=== PATIENT | male | born 1940 | race Caucasian/White ===

== ENCOUNTER 2017-05-15 20:10 | Emergency (ER) | payer MEDICARE, MEDICAID ==
[2017-05-15 20:35] VITALS: BP 185/94
--- NOTE | 2017-05-15 21:50 | EDM.PDOC ---
ED HPI GENERAL MEDICAL PROBLEM - General Chief Complaint: Neurological Problem Stated Complaint: TIA Time Seen by Provider: 05/15/17 20:40 Source of Information: Reports: Patient, Family History Limitations: Reports: No Limitations - History of Present Illness INITIAL COMMENTS - FREE TEXT/NARRATIVE: 76-year-old male who had a brief period of 1-2 minutes of expressive aphasia presents for evaluation. It happened while he was eating, he felt a fullness or pressure in his abdomen, didn't feel well and then was trying to relay his symptoms to his but "couldn't speak right". He had no headache, visual complaints, muscle weakness, extremity symptoms or shortness of breath. His felt he probably should have his blood pressure checked so they checked it and it was higher than usual. By that time his symptoms had resolved, only lasted 1-2 minutes but she figured they should bring him in to be checked. He has had no previous symptoms similar to what he experienced tonight, he has known peripheral vascular disease and has stents in the lower extremities. [facility], I'm not sure the reasoning. Onset: Sudden Severity: Mild Associated Symptoms: Reports: Other (Some abdominal fullness and nausea) - Related Data Allergies Allergy/AdvReac Type Severity Reaction Status Date / Time No Known Allergies Allergy Verified 05/15/17 20:39 Home Meds: Home Meds Acetaminophen [Tylenol] 325 mg PO Q6HR PRN 05/15/17 [History] Aclidinium [place] [Tudorza Pressair] 400 mcg INH BID 05/15/17 [History] Albuterol Sulfate [Proair Respiclick] 90 mcg IH ASDIRECTED PRN 05/15/17 [History ] Albuterol/Ipratropium [DuoNeb 3.0-0.5 MG/3 ML] 3 ml IH QID 05/15/17 [History] Aspirin [[place] Aspirin] 81 mg PO BEDTIME 05/15/17 [History] Budesonide/Formoterol [Symbicort 160-4.5 MCG] 1 puff INH BID 05/15/17 [History] Carvedilol 6.25 mg PO BID 05/15/17 [History] Cholestyramine/Sucrose [Cholestyramine Packet] 4 gm PO TID 05/15/17 [History] Fenofibrate Nanocrystallized [Fenofibrate] 48 mg PO DAILY 05/15/17 [History] Hyoscyamine [Levsin] 0.125 mg PO Q4HR PRN 05/15/17 [History] Lidocaine 2% [Xylocaine 2% Jelly] 5 ml PO ASDIRECTED PRN 05/15/17 [History] Losartan/Hydrochlorothiazide [Losartan-HCTZ 100-12.5 MG] 1 each PO DAILY [History] Metoclopramide HCl [Reglan] 10 mg PO BID 05/15/17 [History] Pantoprazole [ProTONIX] 40 mg PO DAILY 05/15/17 [History] Ranitidine [Zantac] 300 mg PO BEDTIME 05/15/17 [History] Simethicone 80 mg PO ASDIRECTED 05/15/17 [History] Sucralfate 1 gm PO QID 05/15/17 [History] atorvaSTATin [Lipitor] 10 mg PO BEDTIME 05/15/17 [History] Past Medical History Cardiovascular History: Reports: Afib, Bypass, CAD, Hypertension, PR, SOB on Exertion, Stents Respiratory History: Reports: COPD Gastrointestinal History: Reports: Cholelithiasis, GERD Musculoskeletal History: Reports: Arthritis Oncologic (Cancer) History: Reports: Prostate - Infectious Disease History Infectious Disease History: Reports: C-Difficile, Measles, Mumps, Shingles - Past Surgical History Cardiovascular Surgical History: Reports: Coronary Artery Bypass, Coronary Artery Stent, Percutaneous Transluminal Angioplasty, Other (See Below) Other Cardiovascular Surgeries/Procedures: stents in both legs GI Surgical History: Reports: Appendectomy, Cholecystectomy, Hernia Repair/Other Male Surgical History: Reports: Prostatectomy Musculoskeletal Surgical History: Reports: Knee Replacement Social & Family History - Tobacco Use Smoking Status *Q: Former Smoker Used Tobacco, but Quit: Yes Month Tobacco Last Used: 1 month ago - Caffeine Use Caffeine Use: Reports: Coffee - Recreational Drug Use Recreational Drug Use: No ED ROS GENERAL - Review of Systems Review Of Systems: See Below Constitutional: Denies: Fever, Chills HEENT: Reports: Other (Brief expressive aphasia) Respiratory: Denies: Shortness of Breath Cardiovascular: Denies: Chest Pain, Palpitations GI/Abdominal: Reports: Abdominal Pain, Nausea. Denies: Vomiting Skin: Reports: No Symptoms Neurological: Denies: Dizziness, Headache Psychiatric: Reports: No Symptoms ED EXAM, NEURO - Physical Exam Exam: See Below Exam Limited By: No Limitations General Appearance: Alert, No Apparent Distress Eye Exam: Bilateral Eye: EOMI, Other (Full visual chamberlain) Neck: No: Carotid Bruit Respiratory/Chest: No Respiratory Distress, Lungs Clear Cardiovascular: Regular Rate, Rhythm Neurological: Alert, Normal Mood/Affect, No Motor/Sensory Deficits, Oriented x 3 , Other (Romberg is negative, no pronator drift) Psychiatric: Normal Affect, Normal Mood Skin Exam: Warm, Dry Course - Vital Signs Last Recorded V/S: Last Vital Signs Temp 98.0 F 05/15/17 20:38 Pulse 81 05/15/17 20:38 Resp 18 05/15/17 20:38 BP 185/94 H 05/15/17 20:38 Pulse Ox 96 05/15/17 20:38 - Re-Assessments/Exams Free Text/Narrative Re-Assessment/Exam: 05/16/17 02:21 His blood pressure continued to be somewhat elevated with a systolic running 170 -185 which is higher than normal for him. He admits he thinks he may have missed his medicines this morning so he was given a dose of his regular hypertensive medication. He will recheck tomorrow if not improving with his blood pressure or will return sooner if symptoms recur. Departure - Departure Time of Disposition: 22:12 Disposition: Home, Self-Care 01 Condition: Good Clinical Impression: Expressive aphasia Hypertension Qualifiers: Hypertension type: essential hypertension Qualified Code(s): I10 - Essential ( primary) hypertension - Discharge Information Instructions: Transient Ischemic Attack, [id number] Referrals: PCP,None [Primary Care Provider] - Forms: ED Department Discharge Care Plan Goals: Continue your current medications, recheck with your primary care as scheduled and return any time if symptoms recur or you have other concerns.
== END 2017-05-15 22:14 | disposition home or self-care (01) ==
LOC: JP.ED 20:10
DX: R47.01 Aphasia (principal); I10 Essential (primary) hypertension; I48.91 Unspecified atrial fibrillation; I25.10 Atherosclerotic heart disease of native coronary artery without angina pectoris; I25.2 Old myocardial infarction; M19.90 Unspecified osteoarthritis, unspecified site; K21.9 Gastro-esophageal reflux disease without esophagitis; J44.9 Chronic obstructive pulmonary disease, unspecified; Z95.5 Presence of coronary angioplasty implant and graft; Z95.1 Presence of aortocoronary bypass graft; Z79.899 Other long term (current) drug therapy; Z90.49 Acquired absence of other specified parts of digestive tract; Z98.890 Other specified postprocedural states; Z96.659 Presence of unspecified artificial knee joint; Z87.891 Personal history of nicotine dependence; Z79.82 Long term (current) use of aspirin
CPT/HCPCS: 99284; 99285

== ENCOUNTER 2017-07-25 14:11 | Inpatient (IN) | payer MEDICARE, MEDICAID ==
--- NOTE | 2017-07-25 15:13 | EDM.PDOC ---
ED HPI GENERAL MEDICAL PROBLEM - General Chief Complaint: Respiratory Problem Stated Complaint: CHEST DISCOMFORT/PNEUMONIA? Time Seen by Provider: 07/25/17 14:54 Source of Information: Reports: Patient, Family, RN Notes Reviewed History Limitations: Reports: No Limitations - History of Present Illness INITIAL COMMENTS - FREE TEXT/NARRATIVE: 76-year-old gentleman presents emergency department day complaint of epigastric/ chest pain, he has a fairly complicated history was recently hospitalized for 21 days about a month ago at which time diagnosis of pneumonia completed a course of levofloxacin as well as undergoing ERCP with stent placement in the pancreas and lesion biopsy of the pancreas which by report patient has been benign, records are pending. At the time of hospital discharge he states he was not feeling the best and while at home he has continued to have ongoing abdominal pain predominately epigastric left upper quadrant area denies any sputum production cough he does have a known history of COPD of which she is generally short of breath he feels this is not changed significantly he does not have diaphoresis or chest pressure Chest Pain Score (Numeric/FACES): 6 - Related Data Allergies Allergy/AdvReac Type Severity Reaction Status Date / Time No Known Allergies Allergy Verified 07/25/17 17:50 Home Meds: Home Meds Acetaminophen [Tylenol] 325 mg PO Q6HR PRN 05/15/17 [History] Aclidinium [place] [Tudorza Pressair] 400 mcg INH BID 05/15/17 [History] Albuterol Sulfate [Proair Respiclick] 90 mcg IH ASDIRECTED PRN 05/15/17 [History ] Albuterol/Ipratropium [DuoNeb 3.0-0.5 MG/3 ML] 3 ml IH QID 05/15/17 [History] Aspirin [[place] Aspirin] 81 mg PO BEDTIME 05/15/17 [History] Budesonide/Formoterol [Symbicort 160-4.5 MCG] 1 puff INH BID 05/15/17 [History] Carvedilol 6.25 mg PO BID 05/15/17 [History] Cholestyramine/Sucrose [Cholestyramine Packet] 4 gm PO TID 05/15/17 [History] Fenofibrate Nanocrystallized [Fenofibrate] 48 mg PO DAILY 05/15/17 [History] Hyoscyamine [Levsin] 0.125 mg PO Q4HR PRN 05/15/17 [History] Lidocaine 2% [Xylocaine 2% Jelly] 5 ml PO ASDIRECTED PRN 05/15/17 [History] Losartan/Hydrochlorothiazide [Losartan-HCTZ 100-12.5 MG] 1 each PO DAILY [History] Metoclopramide HCl [Reglan] 10 mg PO BID 05/15/17 [History] Pantoprazole [ProTONIX] 40 mg PO DAILY 05/15/17 [History] Ranitidine [Zantac] 300 mg PO BEDTIME 05/15/17 [History] Simethicone 80 mg PO ASDIRECTED 05/15/17 [History] Sucralfate 1 gm PO QID 05/15/17 [History] atorvaSTATin [Lipitor] 10 mg PO BEDTIME 05/15/17 [History] Past Medical History Cardiovascular History: Reports: Afib, Bypass, CAD, Hypertension, [place], SOB on Exertion, Stents Respiratory History: Reports: COPD Gastrointestinal History: Reports: Cholelithiasis, GERD Musculoskeletal History: Reports: Arthritis Oncologic (Cancer) History: Reports: Prostate - Infectious Disease History Infectious Disease History: Reports: C-Difficile, Measles, Mumps, Shingles - Past Surgical History Cardiovascular Surgical History: Reports: Coronary Artery Bypass, Coronary Artery Stent, Percutaneous Transluminal Angioplasty, Other (See Below) Other Cardiovascular Surgeries/Procedures: stents in both legs GI Surgical History: Reports: Appendectomy, Cholecystectomy, Hernia Repair/Other Male Surgical History: Reports: Prostatectomy Musculoskeletal Surgical History: Reports: Knee Replacement Social & Family History - Tobacco Use Smoking Status *Q: Former Smoker Used Tobacco, but Quit: Yes Month Tobacco Last Used: 0 - Caffeine Use Caffeine Use: Reports: Coffee - Recreational Drug Use Recreational Drug Use: No ED ROS GENERAL - Review of Systems Review Of Systems: See Below Constitutional: Reports: Other (Food does not taste good). Denies: Fever, Chills HEENT: Reports: No Symptoms Respiratory: Reports: Shortness of Breath Cardiovascular: Reports: Dyspnea on Exertion GI/Abdominal: Reports: Abdominal Pain, Nausea. Denies: Vomiting : Reports: No Symptoms Musculoskeletal: Reports: No Symptoms Skin: Reports: No Symptoms Neurological: Reports: No Symptoms ED EXAM, GENERAL - Physical Exam Exam: See Below Free Text/Narrative:: General: Male, not in any distress, alert and oriented x3 HEENT: head is atraumatic normocephalic, eyes pupils equal round reactive to light, sclera mild icterus appreciated no conjunctivitis appreciated. Ears blocked by cerumen bilaterally canals are clear. Nose no septal deviation, nares are clear , no blood present. Mouth mucosa is moist and pink no erythema or exudate noted in soft palate, tongue is midline uvula is midline, dentition is intact. Neck: Supple no thyromegaly no tracheal deviation. Nodes: Cervical nodes subclavicular nodes nontender no palpable lymphadenopathy noted. Lungs: Distant breath sounds on appreciate any adventitious noises. CV: Regular rate and rhythm S1 and S2 appreciated no murmurs rubs or gallops noted. Abdomen: Soft, nontender, no palpable masses or organomegaly appreciated, no distention no guarding bowel sounds are present, . Neuro: Cranial nerves II through XII grossly intact Skin: Warm and dry, intact Extremities: No lower extremity edema appreciated, . Course - Vital Signs Last Recorded V/S: Last Vital Signs Temp 98.4 F 07/25/17 14:23 Pulse 82 07/25/17 18:19 Resp 18 07/25/17 16:42 BP 143/79 H 07/25/17 18:19 Pulse Ox 93 L 07/25/17 18:19 - Orders/Labs/Meds Orders: Active Orders 24 hr Category Date Time Status EKG Documentation Completion [RC] ASDIRECTED Care 07/25/17 15:08 Active Peripheral IV Care [RC] . DIRECTED Care 07/25/17 17:37 Active Chest 2V [CR] Urgent Exams 07/25/17 15:07 Taken Chest w Cont [CT] Stat Exams 07/25/17 17:35 Taken Heparin Sodium/D5W [Heparin 25,000 Units in D5W 500 ML] Med 07/25/17 18:45 Ordered 25,000 units in 500 ml IV TITRATE Sodium Chloride 0.9% [Normal Saline] 1,000 ml Med 07/25/17 17:45 Active IV ASDIRECTED Sodium Chloride 0.9% [Saline Flush] Med 07/25/17 17:36 Active 10 ml FLUSH ASDIRECTED PRN Peripheral IV Insertion Adult [OM.PC] Urgent Oth 07/25/17 17:36 Ordered EKG 12 Lead [EK] Stat Ther 10/02/17 15:08 Ordered Medication Orders Sodium Chloride (Normal Saline) 1,000 mls @ 500 mls/hr IV ASDIRECTED KARLA Last Admin: 07/25/17 18:17 Dose: 500 mls/hr Heparin Sodium/Dextrose (Heparin 25,000 Units In D5w 500 Ml) 25,000 units in 500 mls @ 0 mls/hr IV TITRATE KARLA; 18 UNITS/KG/HR PRN Reason: Protocol Sodium Chloride (Saline Flush) 10 ml FLUSH ASDIRECTED PRN PRN Reason: Keep Vein Open Last Admin: 07/25/17 18:18 Dose: 10 ml Labs: Laboratory Tests 07/25/17 07/25/17 07/25/17 Range/Units 15:25 15:25 15:25 WBC 14.3 H (4.5-11.0) K/uL RBC 4.33 (4.30-5.90) M/uL Hgb 11.3 L (12.0-15.0) g/dL Hct 35.2 L (40.0-54.0) % MCV 81 (80-98) fL MCH 26 L (27-31) pg MCHC 32 (32-36) % Plt Count 397 (150-400) K/uL Neut % (Auto) 72 H (36-66) % Lymph % (Auto) 15 L (24-44) % [place] % (Auto) 11 H (2-6) % Eos % (Auto) 3 (2-4) % Baso % (Auto) 0 (0-1) % Sodium 140 (140-148) mmol/L Potassium 3.8 (3.6-5.2) mmol/L Chloride 100 (100-108) mmol/L Carbon Dioxide 32 (21-32) mmol/L Anion Gap 8.4 (5.0-14.0) mmol/L BUN 25 H (7-18) mg/dL Creatinine 1.1 (0.8-1.3) mg/dL Est Cr Clr Drug Dosing 53.33 mL/min Estimated GFR (MDRD) > 60 (>60) Glucose 100 (74-106) mg/dL Lactic Acid 1.4 (0.4-2.0) mmol/L Calcium 8.3 L (8.5-10.1) mg/dL Total Bilirubin 0.5 (0.2-1.0) mg/dL AST 14 L (15-37) U/L ALT 10 L (12-78) U/L Alkaline Phosphatase 71 (46-116) U/L Troponin I 0.020 (0.000-0.056) ng/mL Total Protein 6.2 L (6.4-8.2) g/dL Albumin 2.5 L (3.4-5.0) g/dL Globulin 3.7 H (2.3-3.5) g/dL Albumin/Globulin Ratio 0.7 L (1.2-2.2) Lipase 470 H (73-393) U/L Urine Color Urine Appearance Urine pH (4.5-8.0) Ur Specific [place] (1.008-1.030) Urine Protein (NEGATIVE) mg/dL Urine Glucose (UA) (NEGATIVE) mg/dL Urine Ketones (NEGATIVE) mg/dL Urine Occult Blood (NEGATIVE) Urine Nitrite (NEGAITVE) Urine Bilirubin (NEGATIVE) Urine Urobilinogen (NORMAL) mg/dL Ur Leukocyte Esterase (NEGATIVE) Urine RBC (0-5) Urine WBC (0-5) Ur Epithelial Cells Amorphous Sediment Urine Bacteria Urine Mucus Urine Other 07/25/17 Range/Units 15:47 WBC (4.5-11.0) K/uL RBC (4.30-5.90) M/uL Hgb (12.0-15.0) g/dL Hct (40.0-54.0) % MCV (80-98) fL MCH (27-31) pg MCHC (32-36) % Plt Count (150-400) K/uL Neut % (Auto) (36-66) % Lymph % (Auto) (24-44) % [place] % (Auto) (2-6) % Eos % (Auto) (2-4) % Baso % (Auto) (0-1) % Sodium (140-148) mmol/L Potassium (3.6-5.2) mmol/L Chloride (100-108) mmol/L Carbon Dioxide (21-32) mmol/L Anion Gap (5.0-14.0) mmol/L BUN (7-18) mg/dL Creatinine (0.8-1.3) mg/dL Est Cr Clr Drug Dosing mL/min Estimated GFR (MDRD) (>60) Glucose (74-106) mg/dL Lactic Acid (0.4-2.0) mmol/L Calcium (8.5-10.1) mg/dL Total Bilirubin (0.2-1.0) mg/dL AST (15-37) U/L ALT (12-78) U/L Alkaline Phosphatase (46-116) U/L Troponin I (0.000-0.056) ng/mL Total Protein (6.4-8.2) g/dL Albumin (3.4-5.0) g/dL Globulin (2.3-3.5) g/dL Albumin/Globulin Ratio (1.2-2.2) Lipase (73-393) U/L Urine Color Yellow Urine Appearance Cloudy Urine pH 6.0 (4.5-8.0) Ur Specific [place] 1.015 (1.008-1.030) Urine Protein Trace (NEGATIVE) mg/dL Urine Glucose (UA) Normal (NEGATIVE) mg/dL Urine Ketones 15 H (NEGATIVE) mg/dL Urine Occult Blood Moderate (NEGATIVE) Urine Nitrite Negative (NEGAITVE) Urine Bilirubin Small (NEGATIVE) Urine Urobilinogen Normal (NORMAL) mg/dL Ur Leukocyte Esterase Small (NEGATIVE) Urine RBC 5-10 H (0-5) Urine WBC 5-10 H (0-5) Ur Epithelial Cells Moderate Amorphous Sediment Few Urine Bacteria Few Urine Mucus Many Urine Other See note Meds: Medications Generic Name Dose Route Start Last Admin Trade Name Freq PRN Reason Stop Dose Admin Sodium Chloride 1,000 mls @ 500 mls/hr 07/25/17 17:45 07/25/17 18:17 Normal Saline IV 500 mls/hr ASDIRECTED KARLA Administration Heparin Sodium/Dextrose 25,000 units in 500 mls @ 0 mls/hr 07/25/17 18:45 Heparin 25,000 Units In D5w 500 Ml IV TITRATE KARLA Protocol 18 UNITS/KG/HR Sodium Chloride 10 ml 07/25/17 17:36 07/25/17 18:18 Saline Flush FLUSH 10 ml ASDIRECTED PRN Administration Keep Vein Open Discontinued Medications Generic Name Dose Route Start Last Admin Trade Name Freq PRN Reason Stop Dose Admin Heparin Sodium (Porcine) 4,000 units 07/25/17 18:34 Heparin Sodium IVPUSH 07/25/17 18:35 ONETIME ONE Sodium Chloride 75 mls @ 3 mls/sec 07/25/17 17:44 07/25/17 18:09 Normal Saline IV 07/25/17 17:45 3 mls/sec ONETIME ONE Administration Iopamidol 100 ml 07/25/17 17:44 07/25/17 18:09 Isovue-300 (61%) IV 100 ml . DIRECTED PRN Administration RADIOLOGY EXAM Oxycodone/Acetaminophen 1 tab 07/25/17 15:45 07/25/17 16:18 Percocet 325-5 Mg PO 07/25/17 15:46 1 tab ONETIME ONE Administration Departure - Departure Time of Disposition: 18:41 Disposition: Admitted As Inpatient 68 Condition: Fair Clinical Impression: Pulmonary embolism and infarction - Discharge Information Referrals: PCP,None [Primary Care Provider] - Forms: ED Department Discharge - My Orders Last 24 Hours: My Active Orders 07/25/17 15:07 Chest 2V [CR] Urgent 07/25/17 15:08 EKG Documentation Completion [RC] ASDIRECTED EKG 12 Lead [EK] Stat 07/25/17 17:35 Chest w Cont [CT] Stat 07/25/17 17:36 Sodium Chloride 0.9% [Saline Flush] 10 ml FLUSH ASDIRECTED PRN Peripheral IV Insertion Adult [OM.PC] Urgent 07/25/17 17:37 Peripheral IV Care [RC] . DIRECTED 07/25/17 17:45 Sodium Chloride 0.9% [Normal Saline] 1,000 ml IV ASDIRECTED 07/25/17 18:45 Heparin Sodium/D5W [Heparin 25,000 Units in D5W 500 ML] 25,000 units in 500 ml IV TITRATE - Assessment/Plan Last 24 Hours: My Active Orders 07/25/17 15:07 Chest 2V [CR] Urgent 07/25/17 15:08 EKG Documentation Completion [RC] ASDIRECTED EKG 12 Lead [EK] Stat 07/25/17 17:35 Chest w Cont [CT] Stat 07/25/17 17:36 Sodium Chloride 0.9% [Saline Flush] 10 ml FLUSH ASDIRECTED PRN Peripheral IV Insertion Adult [OM.PC] Urgent 07/25/17 17:37 Peripheral IV Care [RC] . DIRECTED 07/25/17 17:45 Sodium Chloride 0.9% [Normal Saline] 1,000 ml IV ASDIRECTED 07/25/17 18:45 Heparin Sodium/D5W [Heparin 25,000 Units in D5W 500 ML] 25,000 units in 500 ml IV TITRATE Plan: Assessment Acuity = acute Site and laterality = pulmonary embolism left lower lobe complicated patient with known history of chronic obstructive pulmonary disease, coronary artery disease, hypertension and dyslipidemia Etiology = unclear etiology Manifestations = left upper quadrant pain Location of injury = Home Lab values = WBC elevated at 14.3 consistent with leukocytosis, hemoglobin low 11.3 consistent normochromic anemia troponin was negative albumin low at 2.5 consistent hypoalbuminemia lipase slightly elevated at 470 urinalysis reveals RBC of 5-10 consistent hematuria a WBC [address] scan of the head shows acute pulmonary embolism with infarction left lower lobe Plan Discussed case with hospitalist vice president media relations he agreed to come and evaluate the patient ED for admission, 4000 unit bolus heparin initiated in combination with heparin drip Patient was in agreement with the plan all questions were answered, This note was dictated using [employer] voice recognition software please call with any questions.
[2017-07-25] MEDS ORDERED: Acetaminophen/oxyCODONE 325-5 MG Tab PO ONE (15:45)
[2017-07-25] MEDS ORDERED: Sodium Chloride 0.9% 10 ML Syringe FLUSH PRN ×2 (17:36→19:49)
[2017-07-25] MEDS ORDERED: Iopamidol 612 MG/ML 100 ML Bottle IV PRN (17:44)
[2017-07-25] MEDS ORDERED: Sodium Chloride 0.9% 75 ML IV ONE (17:44)
[2017-07-25] MEDS ORDERED: Sodium Chloride 0.9% 1,000 ML IV SCH (17:45)
[2017-07-25] MEDS ORDERED: Heparin Sodium 5,000 Units/ML Vial IVPUSH ONE (18:34)
[2017-07-25] MEDS: Heparin Sodium/D5W 25,000 UNITS/500 ML BAG IV SCH (19:05)
--- NOTE | 2017-07-25 19:25 | PCM.HP ---
H&P History of Present Illness - General Date of Service: 07/25/17 Admit Problem/Dx: Admission Diagnosis/Problem Admission Diagnosis/Problem Pulmonary embolism Source of Information: Patient, Old Records, Provider, RN Notes Reviewed History Limitations: Reports: No Limitations - History of Present Illness Initial Comments - Free Text/Narative: Mr. Mukherjee is a 76-year-old gentleman who is admitted through the emergency department for further management of a left lung pulmonary embolism and pulmonary infarct. Over the past 6 weeks he is had a fairly complicated medical history, including 2 hospitalizations at [facility] in [place]. He was noted to have a possible pancreatic mass, CT scans and MRI of the abdomen were obtained. He underwent ERCP with stent placement and a biopsy which was negative for malignancy. He was found to have evidence of pancreatitis and his hospitalization was further complicated by pneumonia. He was discharged home just over a week ago and was feeling somewhat stronger with improved appetite up until 2 days ago. Since then has noted pain in his left anterior chest wall and left upper abdomen. Pain would get some what worse with a deep breath and he has noted mild increase in shortness of breath. He's had no fevers chills or sweats, cough has been productive only of clear sputum. On evaluation today in the emergency department chest x-ray showed no obvious infiltrate, white blood cell count was modestly elevated. CT scan of the chest documents a left lower lobe infiltrate and associated pulmonary infarct. CT of the upper abdomen shows no appreciable change from previous CT scans. Patient denies any previous history of clotting abnormalities, DVT, or pulmonary embolism. There is been no significant family history of clotting abnormalities. Chest Pain Score (Numeric/FACES): 6 - Related Data Allergies/Adverse Reactions: Allergies Allergy/AdvReac Type Severity Reaction Status Date / Time No Known Allergies Allergy Verified 07/25/17 17:50 Home Medications: Home Meds Acetaminophen [Tylenol] 325 mg PO Q6HR PRN 05/15/17 [History] Aclidinium [place] [Tudorza Pressair] 400 mcg INH BID 05/15/17 [History] Albuterol Sulfate [Proair Respiclick] 90 mcg IH ASDIRECTED PRN 05/15/17 [History ] Albuterol/Ipratropium [DuoNeb 3.0-0.5 MG/3 ML] 3 ml IH QID 05/15/17 [History] Aspirin [Casey Aspirin] 81 mg PO BEDTIME 05/15/17 [History] Budesonide/Formoterol [Symbicort 160-4.5 MCG] 2 puff INH BID 05/15/17 [History] Carvedilol 6.25 mg PO BID 05/15/17 [History] Cholestyramine/Sucrose [Cholestyramine Packet] 4 gm PO TID 05/15/17 [History] Fenofibrate Nanocrystallized [Fenofibrate] 48 mg PO DAILY 05/15/17 [History] Pantoprazole [ProTONIX] 40 mg PO DAILY 05/15/17 [History] Ranitidine [Zantac] 150 mg PO BEDTIME 05/15/17 [History] Simethicone 80 mg PO ASDIRECTED 05/15/17 [History] Sucralfate 1 gm PO QID 05/15/17 [History] atorvaSTATin [Lipitor] 10 mg PO BEDTIME 05/15/17 [History] Losartan/Hydrochlorothiazide [Losartan-HCTZ 100-25 MG] 1 tab PO DAILY 07/25/17 [ History] hydrOXYzine HCl [hydrOXYzine] 25 mg PO TID PRN 07/25/17 [History] oxyCODONE 1 tab PO Q6H PRN 07/25/17 [History] Past Medical History Cardiovascular History: Reports: Afib, Bypass, CAD, Hypertension, [place], SOB on Exertion, Stents Respiratory History: Reports: COPD Gastrointestinal History: Reports: Cholelithiasis, GERD Musculoskeletal History: Reports: Arthritis Oncologic (Cancer) History: Reports: Prostate - Infectious Disease History Infectious Disease History: Reports: C-Difficile, Measles, Mumps, Shingles - Past Surgical History Cardiovascular Surgical History: Reports: Coronary Artery Bypass, Coronary Artery Stent, Percutaneous Transluminal Angioplasty, Other (See Below) Other Cardiovascular Surgeries/Procedures: stents in both legs GI Surgical History: Reports: Appendectomy, Cholecystectomy, Hernia Repair/Other Male Surgical History: Reports: Prostatectomy Musculoskeletal Surgical History: Reports: Knee Replacement Social & Family History - Tobacco Use Smoking Status *Q: Former Smoker Used Tobacco, but Quit: Yes Month Tobacco Last Used: 0 - Caffeine Use Caffeine Use: Reports: Coffee - Recreational Drug Use Recreational Drug Use: No H&P Review of Systems - Review of Systems: Review Of Systems: See Below General: Reports: Weakness, Decreased Appetite. Denies: Fever, Chills, Diaphoresis HEENT: Reports: No Symptoms Pulmonary: Reports: Shortness of Breath, Cough. Denies: Wheezing, Pleuritic Chest Pain, Sputum, Hemoptysis Cardiovascular: Reports: Dyspnea on Exertion. Denies: Chest Pain, Palpitations , Orthopnea, PND, Edema, Lightheadedness Gastrointestinal: Reports: Abdominal Pain, Decreased Appetite. Denies: Black Stool, Bloody Stool, Constipation, Diarrhea, Difficulty Swallowing, Distension Genitourinary: Reports: No Symptoms Musculoskeletal: Reports: No Symptoms Skin: Reports: No Symptoms Psychiatric: Reports: No Symptoms Neurological: Reports: No Symptoms Hematologic/Lymphatic: Reports: No Symptoms Immunologic: Reports: No Symptoms Exam - Exam Exam: See Below - Vital Signs Vital Signs: Last Vital Signs Temp 98.4 F 07/25/17 14:23 Pulse 80 07/25/17 19:13 Resp 18 07/25/17 16:42 BP 139/64 07/25/17 19:13 Pulse Ox 93 L 07/25/17 19:13 Weight: 141 lb 1.533 oz - Exam Quality Assessment: DVT Prophylaxis General: Alert, Oriented, Cooperative, Mild Distress HEENT: Conjunctiva Clear, Hearing Intact, Mucosa Moist & [place], Normal Nasal Septum, Posterior Pharynx Clear, Pupils Equal Neck: Supple, Trachea Midline, +2 Carotid Pulse wo Bruit Lungs: Normal Respiratory Effort, Decreased Breath Sounds. No: Crackles, Rales , Rhonchi, Rub, Stridor, Wheezing Cardiovascular: Regular Rate, Normal S1, Normal S2, Irregular Rhythm. No: Bradycardia, Tachycardia, Systolic Murmur, Diastolic Murmur GI/Abdominal Exam: Normal Bowel Sounds, Soft, Non-Tender, No Organomegaly, No Distention Back Exam: Normal Inspection, Full Range of Motion Extremities: Normal Inspection, Non-Tender, No Pedal Edema Skin: Warm, Dry, Intact Neurological: Cranial Nerves Intact, Strength Equal Bilateral, Normal Speech, Normal Tone. No: Focal Deficit Neuro Extensive - Mental Status: Alert, Oriented x3, Normal Mood/Affect, Normal Cognition, Memory Intact - Patient Data Lab Results Last 24 hrs: Laboratory Results - last 24 hr 07/25/17 07/25/17 07/25/17 Range/Units 15:25 15:25 15:25 WBC 14.3 H (4.5-11.0) K/uL RBC 4.33 (4.30-5.90) M/uL Hgb 11.3 L (12.0-15.0) g/dL Hct 35.2 L (40.0-54.0) % MCV 81 (80-98) fL MCH 26 L (27-31) pg MCHC 32 (32-36) % Plt Count 397 (150-400) K/uL Neut % (Auto) 72 H (36-66) % Lymph % (Auto) 15 L (24-44) % [place] % (Auto) 11 H (2-6) % Eos % (Auto) 3 (2-4) % Baso % (Auto) 0 (0-1) % Sodium 140 (140-148) mmol/L Potassium 3.8 (3.6-5.2) mmol/L Chloride 100 (100-108) mmol/L Carbon Dioxide 32 (21-32) mmol/L Anion Gap 8.4 (5.0-14.0) mmol/L BUN 25 H (7-18) mg/dL Creatinine 1.1 (0.8-1.3) mg/dL Est Cr Clr Drug Dosing 53.33 mL/min Estimated GFR (MDRD) > 60 (>60) Glucose 100 (74-106) mg/dL Lactic Acid 1.4 (0.4-2.0) mmol/L Calcium 8.3 L (8.5-10.1) mg/dL Total Bilirubin 0.5 (0.2-1.0) mg/dL AST 14 L (15-37) U/L ALT 10 L (12-78) U/L Alkaline Phosphatase 71 (46-116) U/L Troponin I 0.020 (0.000-0.056) ng/mL Total Protein 6.2 L (6.4-8.2) g/dL Albumin 2.5 L (3.4-5.0) g/dL Globulin 3.7 H (2.3-3.5) g/dL Albumin/Globulin Ratio 0.7 L (1.2-2.2) Lipase 470 H (73-393) U/L Urine Color Urine Appearance Urine pH (4.5-8.0) Ur Specific [place] (1.008-1.030) Urine Protein (NEGATIVE) mg/dL Urine Glucose (UA) (NEGATIVE) mg/dL Urine Ketones (NEGATIVE) mg/dL Urine Occult Blood (NEGATIVE) Urine Nitrite (NEGAITVE) Urine Bilirubin (NEGATIVE) Urine Urobilinogen (NORMAL) mg/dL Ur Leukocyte Esterase (NEGATIVE) Urine RBC (0-5) Urine WBC (0-5) Ur Epithelial Cells Amorphous Sediment Urine Bacteria Urine Mucus Urine Other 07/25/17 Range/Units 15:47 WBC (4.5-11.0) K/uL RBC (4.30-5.90) M/uL Hgb (12.0-15.0) g/dL Hct (40.0-54.0) % MCV (80-98) fL MCH (27-31) pg MCHC (32-36) % Plt Count (150-400) K/uL Neut % (Auto) (36-66) % Lymph % (Auto) (24-44) % [place] % (Auto) (2-6) % Eos % (Auto) (2-4) % Baso % (Auto) (0-1) % Sodium (140-148) mmol/L Potassium (3.6-5.2) mmol/L Chloride (100-108) mmol/L Carbon Dioxide (21-32) mmol/L Anion Gap (5.0-14.0) mmol/L BUN (7-18) mg/dL Creatinine (0.8-1.3) mg/dL Est Cr Clr Drug Dosing mL/min Estimated GFR (MDRD) (>60) Glucose (74-106) mg/dL Lactic Acid (0.4-2.0) mmol/L Calcium (8.5-10.1) mg/dL Total Bilirubin (0.2-1.0) mg/dL AST (15-37) U/L ALT (12-78) U/L Alkaline Phosphatase (46-116) U/L Troponin I (0.000-0.056) ng/mL Total Protein (6.4-8.2) g/dL Albumin (3.4-5.0) g/dL Globulin (2.3-3.5) g/dL Albumin/Globulin Ratio (1.2-2.2) Lipase (73-393) U/L Urine Color Yellow Urine Appearance Cloudy Urine pH 6.0 (4.5-8.0) Ur Specific [place] 1.015 (1.008-1.030) Urine Protein Trace (NEGATIVE) mg/dL Urine Glucose (UA) Normal (NEGATIVE) mg/dL Urine Ketones 15 H (NEGATIVE) mg/dL Urine Occult Blood Moderate (NEGATIVE) Urine Nitrite Negative (NEGAITVE) Urine Bilirubin Small (NEGATIVE) Urine Urobilinogen Normal (NORMAL) mg/dL Ur Leukocyte Esterase Small (NEGATIVE) Urine RBC 5-10 H (0-5) Urine WBC 5-10 H (0-5) Ur Epithelial Cells Moderate Amorphous Sediment Few Urine Bacteria Few Urine Mucus Many Urine Other See note Result Diagrams: 07/25/17 15:25 07/25/17 15:25 *Q Meaningful Use (ADM) - VTE *Q VTE Criteria *Q: VTE Pharmacological Contraindications *Q: High INR Value - VTE Risk Assess *Q Each Risk Factor Represents 1 Point: Abnormal Pulmonary Function (COPD) Total Score 1 Point Risk Factors: 1 Each Risk Factor Represents 2 Points: Age 60 - 74 Years, Previous Malignancy Total Score 2 Point Risk Factors: 4 Each Risk Factor Represents 3 Points: History Superficial Venous Thrombosis, DVT or PE Total Score 3 Point Risk Factors: 3 Each Risk Factor Represents 5 Points: None Total Score 5 Point Risk Factors: 0 Venous Thromboembolism Risk Factor Score *Q: 8 - Stroke *Q Stroke Criteria *Q: - AMI *Q AMI Criteria *Q: Problem List Initiated/Reviewed/Updated: Yes Orders Last 24hrs: Active Orders 24 hr Category Date Time Status Patient Status Manage Transfer [TRANSFER] Routine ADT 07/25/17 19:06 Active EKG Documentation Completion [RC] ASDIRECTED Care 07/25/17 15:08 Active Peripheral IV Care [RC] . DIRECTED Care 07/25/17 17:37 Active Chest 2V [CR] Urgent Exams 07/25/17 15:07 Taken Chest w Cont [CT] Stat Exams 07/25/17 17:35 Taken Heparin Sodium/D5W [Heparin 25,000 Units in D5W 500 ML] Med 07/25/17 18:45 Active 25,000 units in 500 ml IV TITRATE Sodium Chloride 0.9% [Normal Saline] 1,000 ml Med 07/25/17 17:45 Active IV ASDIRECTED Sodium Chloride 0.9% [Saline Flush] Med 07/25/17 17:36 Active 10 ml FLUSH ASDIRECTED PRN Peripheral IV Insertion Adult [OM.PC] Urgent Oth 07/25/17 17:36 Ordered Resuscitation Status Routine Resus Stat 07/25/17 19:10 Ordered EKG 12 Lead [EK] Stat Ther 07/25/17 15:08 Ordered Medication Orders Sodium Chloride (Normal Saline) 1,000 mls @ 500 mls/hr IV ASDIRECTED KARLA Last Admin: 07/25/17 18:17 Dose: 500 mls/hr Heparin Sodium/Dextrose (Heparin 25,000 Units In D5w 500 Ml) 25,000 units in 500 mls @ 0 mls/hr IV TITRATE KARLA; 18 UNITS/KG/HR PRN Reason: Protocol Last Admin: 07/25/17 19:05 Dose: 17.96 units/kg/hr, 23 mls/hr Sodium Chloride (Saline Flush) 10 ml FLUSH ASDIRECTED PRN PRN Reason: Keep Vein Open Last Admin: 07/25/17 18:18 Dose: 10 ml Assessment/Plan Comment:: ASSESSMENT AND PLAN 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 -Venous Doppler studies both lower extremities -IV heparin per protocol, plan to transition to Lovenox in 2 days -Warfarin 7.5 mg by mouth today -INR now and in a.m. RECENT PNEUMONIA-no evidence of infiltrate on CT scan today -Hold on antibiotic therapy RECENT RDSISIENZNCY-[id number] abdominal pain likely related to pulmonary embolism and infarct. Mild elevation in lipase likely secondary to chronic pancreatitis COPD-no evidence of acute exacerbation -Continue outpatient medical therapy CORONARY ARTERY DISEASE-currently asymptomatic -Continue outpatient medical therapy MAINTENANCE ISSUES -DVT prophylaxis; current IV heparin should provide adequate DVT prophylaxis -GI prophylaxis; continue outpatient PPI therapy -[place] catheter; not indicated -Nutrition; regular diet -Nicotine dependence; not required CODE STATUS-FULL CODE ADMISSION STATUS-patient will be admitted to inpatient status, expect at least a 2 night hospital stay for evaluation and management of problems as outlined above. At the time of this admission I do not reasonably expected evaluation and management of this problem will require more than a 96 hour hospital stay. DISPOSITION-anticipate discharge to home after the hospital stay. PRIMARY CARE PROVIDER-currently receives care [facility]
[2017-07-25] MEDS ORDERED: Docusate Sodium 100 MG Cap PO PRN (19:49)
[2017-07-25] MEDS ORDERED: Magnesium Hydroxide 400 MG/5 ML Susp 30 ML Cup PO PRN (19:49)
[2017-07-25] MEDS ORDERED: Albuterol 0.083% 2.5 MG/3 ML Neb Soln NEB PRN (19:49)
[2017-07-25] MEDS ORDERED: Ondansetron 4 MG/2 ML SDV IV PRN (19:49)
[2017-07-25] MEDS ORDERED: Albuterol 8 GM Inhaler INH PRN (20:11)
[2017-07-25] MEDS: oxyCODONE 5 MG Tab PO PRN (20:40)
[2017-07-25] MEDS ORDERED: FLU Vacc TS 2017-18 (65yr UP)/PF 180 MCG/0.5 ML Syringe IM ONE (21:00)
[2017-07-25] MEDS ORDERED: Warfarin 2.5 MG Tab PO ONE (21:00)
[2017-07-25] MEDS ORDERED: Formoterol/Mometasone 200-5 MCG 8.8 GM Inhaler IH SCH (21:00)
[2017-07-25] MEDS: Carvedilol 6.25 MG Tab PO SCH (21:03)
[2017-07-25] MEDS: Sucralfate 1 GM Tab PO SCH (21:04)
[2017-07-25] MEDS: Aspirin 81 MG Tab.EC PO SCH (21:04)
[2017-07-25] MEDS: Albuterol/Ipratropium 3.0-0.5 MG/3 ML Neb Soln INH SCH (21:05)
[2017-07-25] MEDS: atorvaSTATin 10 MG Tab PO SCH (21:13)
[2017-07-25] MEDS ORDERED: Warfarin 5 MG Tab ONE (21:17)
[2017-07-25] MEDS ORDERED: Warfarin 2.5 MG Tab ONE (21:17)
[2017-07-25] MEDS: Cholestyramine/Sucrose Powder 4 GM Packet PO SCH (21:23)
[2017-07-25] MEDS: ACLIDINIUM BROMIDE INH SCH (22:54)
[2017-07-26] MEDS: oxyCODONE 5 MG Tab PO PRN ×5 (01:08→21:07)
[2017-07-26] MEDS: Sucralfate 1 GM Tab PO SCH ×4 (05:18→21:00)
[2017-07-26] MEDS: Formoterol/Mometasone 200-5 MCG 8.8 GM Inhaler IH SCH ×2 (08:05→20:58)
[2017-07-26] MEDS: Albuterol/Ipratropium 3.0-0.5 MG/3 ML Neb Soln INH SCH ×4 (08:05→20:58)
[2017-07-26] MEDS: Tiotropium Inhaler 18 MCG Inhalation Powder Cap Kit of 5 INH SCH (08:06)
[2017-07-26] MEDS: Acetaminophen 325 MG Tab PO PRN (08:35)
[2017-07-26] MEDS: Pantoprazole 40 MG Tab.CR PO SCH (08:36)
--- NOTE | 2017-07-26 09:03 | CR ---
Chest 2V HISTORY: Pain. COMPARISON: None FINDINGS: Prior median sternotomy. No focal infiltrates or effusions. No acute congestive change.
--- NOTE | 2017-07-26 09:10 | US ---
VL Duplex Lwr Ext Veins Comp HISTORY: Pulmonary embolism. FINDINGS: The deep veins of the right lower extremity demonstrate no evidence for deep venous thrombo sis. On the left there is deep venous thrombosis within the left femoral vein in the mid thigh level which is duplicated. The remainder the deep veins on the left appear patent. Impression: 1. Study is positive for deep venous thrombosis within duplicated left deep femoral vein in the mid t high level.
[2017-07-26] MEDS: Fenofibrate,Micronized 67 MG Cap PO SCH (09:11)
[2017-07-26] MEDS: Cholestyramine/Sucrose Powder 4 GM Packet PO SCH ×4 (09:11→21:19)
[2017-07-26] MEDS: Hydrochlorothiazide 25 MG Tab PO SCH (09:13)
[2017-07-26] MEDS: Losartan 50 MG Tab PO SCH (09:13)
[2017-07-26] MEDS: Carvedilol 6.25 MG Tab PO SCH ×2 (09:13→21:00)
[2017-07-26] MEDS ORDERED: Potassium Chloride 20 MEQ Tab.ER PO ONE (09:30)
[2017-07-26] MEDS: Magnesium Sulfate/Water 2 GM in Premix Bag 1 BAG IV SCH ×2 (09:58→16:50)
[2017-07-26] MEDS ORDERED: FLU Vacc TS 2017-18 (65yr UP)/PF 180 MCG/0.5 ML Syringe IM ONE (10:00)
[2017-07-26] MEDS: Magnesium Oxide 400 MG Tab PO SCH ×2 (10:03→21:00)
[2017-07-26] MEDS: hydrOXYzine HCl 25 MG Tab PO PRN (11:31)
--- NOTE | 2017-07-26 12:59 | PCM.PN ---
- General Info Date of Service: 07/26/17 Functional Status: Reports: Pain Controlled, Ambulating, Urinating. Denies: Tolerating Diet - Review of Systems General: Reports: Weakness. Denies: Fever, Chills Pulmonary: Reports: No Symptoms Cardiovascular: Reports: No Symptoms Gastrointestinal: Reports: Decreased Appetite. Denies: Abdominal Pain, Constipation, Diarrhea, Difficulty Swallowing, Nausea, Vomiting Psychiatric: Reports: Confusion Systems Review Comment:: Mr. Mukherjee has been stable since admission, left upper quadrant abdominal pain and chest wall pain have improved. Currently denies significant shortness of breath, vital signs have been stable, with adequate oxygenation on room air. Thus far has had no significant temperature elevation. Oral intake remains very poor. - Patient Data Vitals - Most Recent: Last Vital Signs Temp 96.9 F 07/26/17 11:00 Pulse 71 07/26/17 11:04 Resp 16 07/26/17 11:00 BP 105/51 L 07/26/17 11:00 Pulse Ox 95 07/26/17 11:04 Weight - Most Recent: 141 lb 1.533 oz I&O - Last 24 Hours: Intake & Output 07/25/17 07/26/17 07/26/17 22:59 06:59 14:59 Intake Total 225 50 Output Total 100 225 Balance -100 225 -175 Lab Results Last 24 Hours: Laboratory Results - last 24 hr 07/25/17 07/26/17 07/26/17 Range/Units 19:53 01:09 07:00 WBC 10.4 (4.5-11.0) K/uL RBC 3.65 L (4.30-5.90) M/uL Hgb 9.8 L (12.0-15.0) g/dL Hct 29.9 L (40.0-54.0) % MCV 82 (80-98) fL MCH 27 (27-31) pg MCHC 33 (32-36) % Plt Count 297 (150-400) K/uL Neut % (Auto) 59 (36-66) % Lymph % (Auto) 24 (24-44) % [place] % (Auto) 12 H (2-6) % Eos % (Auto) 5 H (2-4) % Baso % (Auto) 0 (0-1) % PT 13.4 H (9.5-12.0) sec INR 1.24 H (0.80-1.20) APTT 57.8 H (27.0-36.0) sec Sodium (140-148) mmol/L Potassium (3.6-5.2) mmol/L Chloride (100-108) mmol/L Carbon Dioxide (21-32) mmol/L Anion Gap (5.0-14.0) mmol/L BUN (7-18) mg/dL Creatinine (0.8-1.3) mg/dL Est Cr Clr Drug Dosing mL/min Estimated GFR (MDRD) (>60) Glucose (74-106) mg/dL Calcium (8.5-10.1) mg/dL Magnesium (1.8-2.4) mg/dL 07/26/17 07/26/17 07/26/17 Range/Units 07:00 07:00 07:00 WBC (4.5-11.0) K/uL RBC (4.30-5.90) M/uL Hgb (12.0-15.0) g/dL Hct (40.0-54.0) % MCV (80-98) fL MCH (27-31) pg MCHC (32-36) % Plt Count (150-400) K/uL Neut % (Auto) (36-66) % Lymph % (Auto) (24-44) % [place] % (Auto) (2-6) % Eos % (Auto) (2-4) % Baso % (Auto) (0-1) % PT 16.7 H (9.5-12.0) sec INR 1.53 H (0.80-1.20) APTT 81.2 H (27.0-36.0) sec Sodium 140 (140-148) mmol/L Potassium 3.3 L (3.6-5.2) mmol/L Chloride 102 (100-108) mmol/L Carbon Dioxide 31 (21-32) mmol/L Anion Gap 10.3 (5.0-14.0) mmol/L BUN 19 H (7-18) mg/dL Creatinine 0.9 (0.8-1.3) mg/dL Est Cr Clr Drug Dosing 65.19 mL/min Estimated GFR (MDRD) > 60 (>60) Glucose 94 (74-106) mg/dL Calcium 7.8 L (8.5-10.1) mg/dL Magnesium 1.3 L (1.8-2.4) mg/dL Med Orders - Current: Current Medications Acetaminophen (Tylenol) 650 mg PO Q4H PRN PRN Reason: Pain (Mild 1-3)/fever Last Admin: 07/26/17 08:35 Dose: 650 mg Albuterol (Proventil Neb Soln) 2.5 mg NEB Q4H PRN PRN Reason: Shortness Of Breath/wheezing Last Admin: 07/26/17 03:17 Dose: 2.5 mg Albuterol (Ventolin Hfa) 0 gm INH ASDIRECTED PRN PRN Reason: Wheezing Albuterol/Ipratropium (Duoneb 3.0-0.5 Mg/3 Ml) 3 ml INH QIDRT KARLA Last Admin: 07/26/17 11:02 Dose: 3 ml Aspirin (Halfprin) 81 mg PO BEDTIME KARLA Last Admin: 07/25/17 21:04 Dose: 81 mg Atorvastatin Calcium (Lipitor) 10 mg PO BEDTIME KARLA Last Admin: 07/25/17 21:13 Dose: 10 mg Carvedilol (Coreg) 6.25 mg PO BID KARLA Last Admin: 07/26/17 09:13 Dose: 6.25 mg Cholestyramine Resin (Cholestyramine Packet) 4 gm PO TID KARLA Last Admin: 07/26/17 09:11 Dose: 4 gm Docusate Sodium (Colace) 100 mg PO BID PRN PRN Reason: Constipation Fenofibrate (Fenofibrate) 67 mg PO DAILY [facility] Last Admin: 07/26/17 09:11 Dose: 67 mg Hydrochlorothiazide (Hydrochlorothiazide) 25 mg PO DAILY [facility] Last Admin: 07/26/17 09:13 Dose: 25 mg Hydroxyzine HCl (Atarax) 25 mg PO TID PRN PRN Reason: Anxiety Last Admin: 07/26/17 11:31 Dose: 25 mg Heparin Sodium/Dextrose (Heparin 25,000 Units In D5w 500 Ml) 25,000 units in 500 mls @ 0 mls/hr IV TITRATE KARLA; 18 UNITS/KG/HR PRN Reason: Protocol Last Titration: 07/26/17 07:56 Dose: 16.01 units/kg/hr, 20.5 mls/hr Magnesium Sulfate 2 gm/ Premix 50 mls @ 25 mls/hr IV Q6H [facility] Stop: 07/26/17 17:59 Last Admin: 07/26/17 09:58 Dose: 25 mls/hr Losartan Potassium (Cozaar) 100 mg PO DAILY [facility] Last Admin: 07/26/17 09:13 Dose: 100 mg Magnesium Hydroxide (Milk Of Magnesia) 30 ml PO Q12H PRN PRN Reason: Constipation Magnesium Oxide (Magnesium Oxide) 400 mg PO BID [facility] Last Admin: 07/26/17 10:03 Dose: 400 mg Melatonin (Melatonin) 9 mg PO BEDTIME [facility] Mometasone Furoate/Formoterol Fumar (Dulera 200-5 Mcg) 2 puff IH BIDRT [facility] Last Admin: 07/26/17 08:05 Dose: 2 puff Ondansetron HCl (Zofran) 4 mg IV Q4H PRN PRN Reason: Nausea/Vomiting Oxycodone HCl (Oxycodone) 10 mg PO Q4H PRN PRN Reason: Pain (moderate 4-6) Last Admin: 07/26/17 05:18 Dose: 10 mg Pantoprazole Sodium (Protonix) 40 mg PO ACBREAKFAST [facility] Last Admin: 07/26/17 08:36 Dose: 40 mg Polyethylene Glycol (Miralax) 17 gm PO DAILY PRN PRN Reason: Constipation Ranitidine HCl (Zantac) 150 mg PO BEDTIME [facility] Last Admin: 07/25/17 21:04 Dose: 150 mg Sodium Chloride (Saline Flush) 10 ml FLUSH ASDIRECTED PRN PRN Reason: Keep Vein Open Sucralfate (Carafate) 1 gm PO QID [facility] Last Admin: 07/26/17 11:00 Dose: 1 gm Tiotropium [place] (Spiriva Handihaler) 18 mcg INH DAILY@0700 [facility] Last Admin: 07/26/17 08:06 Dose: 1 capful Warfarin Sodium (Coumadin) 2.5 mg PO ONETIME ONE Stop: 07/26/17 13:01 Discontinued Medications Aclidinium [place] (Tudorza Pressair) 400 mcg INH BIDRT [facility] Last Admin: 07/25/17 22:54 Dose: Not Given Heparin Sodium (Porcine) (Heparin Sodium) 4,000 units IVPUSH ONETIME ONE Stop: 07/25/17 18:35 Last Admin: 07/25/17 18:56 Dose: 4,000 units Sodium Chloride (Normal Saline) 1,000 mls @ 500 mls/hr IV ASDIRECTED [facility] Last Admin: 07/25/17 18:17 Dose: 500 mls/hr Sodium Chloride (Normal Saline) 75 mls @ 3 mls/sec IV ONETIME ONE Stop: 07/25/17 17:45 Last Admin: 07/25/17 18:09 Dose: 3 mls/sec Iopamidol (Isovue-300 (61%)) 100 ml IV . DIRECTED PRN PRN Reason: RADIOLOGY EXAM Last Admin: 07/25/17 18:09 Dose: 100 ml Mometasone Furoate/Formoterol Fumar (Dulera 200-5 Mcg) 0 puff IH BIDRT [facility] Last Admin: 07/25/17 20:42 Dose: 2 puff Oxycodone/Acetaminophen (Percocet 325-5 Mg) 1 tab PO ONETIME ONE Stop: 07/25/17 15:46 Last Admin: 07/25/17 16:18 Dose: 1 tab Potassium Chloride (Klor-Con M20) 40 meq PO ONETIME ONE Stop: 07/26/17 09:31 Last Admin: 07/26/17 10:03 Dose: 40 meq Sodium Chloride (Saline Flush) 10 ml FLUSH ASDIRECTED PRN PRN Reason: Keep Vein Open Last Admin: 07/25/17 18:18 Dose: 10 ml Warfarin Sodium (Coumadin) 7.5 mg PO ONETIME ONE Stop: 07/25/17 21:01 Last Admin: 07/25/17 21:19 Dose: 7.5 mg Warfarin Sodium (Coumadin) Confirm Administered Dose 2.5 mg .ROUTE .STK-MED ONE Stop: 07/25/17 21:18 Last Admin: 07/25/17 21:22 Dose: Not Given Warfarin Sodium (Coumadin) Confirm Administered Dose 5 mg .ROUTE .STK-MED ONE Stop: 07/25/17 21:18 Last Admin: 07/25/17 21:22 Dose: Not Given - Exam Quality Assessment: DVT Prophylaxis General: Alert, Cooperative, No Acute Distress Lungs: Clear to Auscultation, Normal Respiratory Effort Cardiovascular: Regular Rate, Regular Rhythm, No Murmurs GI/Abdominal Exam: Normal Bowel Sounds, Soft, Non-Tender, No Distention Back Exam: Normal Inspection, Full Range of Motion Extremities: Non-Tender, No Pedal Edema Skin: Warm, Dry - Problem List Review Problem List Initiated/Reviewed/Updated: Yes - My Orders Last 24 Hours: My Active Orders 07/25/17 19:10 Resuscitation Status Routine 07/25/17 19:49 Patient Status [ADT] Routine Ambulate [RC] QID Cardiac Monitoring [RC] .As Directed Intake and Output [RC] QSHIFT Notify Provider Vital Signs [RC] ASDIRECTED Oxygen Therapy [RC] PRN Peripheral IV Care [RC] Q12H RT Aerosol Therapy [RC] ASDIRECTED Up With Assistance [RC] ASDIRECTED Up to Chair [RC] QID VTE/DVT Education [RC] Per Unit Routine Vital Signs [RC] Q4H Acetaminophen [Tylenol] 650 mg PO Q4H PRN Albuterol [Proventil Neb Soln] 2.5 mg NEB Q4H PRN Docusate Sodium [Colace] 100 mg PO BID PRN Magnesium Hydroxide [Milk of Magnesia] 30 ml PO Q12H PRN Ondansetron [Zofran] 4 mg IV Q4H PRN Polyethylene Glycol 3350 [MiraLAX] 17 gm PO DAILY PRN Sodium Chloride 0.9% [Saline Flush] 10 ml FLUSH ASDIRECTED PRN oxyCODONE 10 mg PO Q4H PRN Peripheral IV Insertion Adult [OM.PC] Routine VTE Pharmacological Contraindications [AST] Per Unit Routine 07/25/17 Dinner Regular Diet [DIET] 07/26/17 07:00 Mometasone/Formoterol [Dulera 200-5 MCG] 2 puff IH BIDRT Tiotropium [Spiriva HandiHaler] 18 mcg INH DAILY@0700 07/26/17 09:00 Hydrochlorothiazide 25 mg PO DAILY 07/26/17 09:15 Magnesium Oxide 400 mg PO BID 07/26/17 10:00 Magnesium Sulfate/Water [Magnesium Sulfate 2 GM in Water 50 ML] 2 gm Premix Bag 1 bag IV Q6H 07/26/17 12:52 Consult to Web Site Developer [CONS] Routine Consult to Physical Therapy [PT Evaluation and Treatment] [CONS] Routine 07/26/17 13:00 aPTT [PTT,PARTIAL THROMBOPLSTIN TIME] [COAG] Routine Melatonin 9 mg PO BEDTIME Warfarin [Coumadin] 2.5 mg PO ONETIME ONE 07/26/17 16:30 Oral Nutrition Supplement [COMM] QIDACANDBED 07/26/17 21:00 Oral Nutrition Supplement [COMM] QIDACANDBED 07/27/17 05:00 BASIC METABOLIC PANEL,BMP [CHEM] Timed MAGNESIUM [CHEM] Timed 07/27/17 05:11 INR,PT,PROTHROMBIN TIME [COAG] AM 07/27/17 07:30 Oral Nutrition Supplement [COMM] QIDACANDBED 07/27/17 11:30 Oral Nutrition Supplement [COMM] QIDACANDBED 07/27/17 16:30 Oral Nutrition Supplement [COMM] QIDACANDBED 07/27/17 21:00 Oral Nutrition Supplement [COMM] QIDACANDBED 07/28/17 07:30 Oral Nutrition Supplement [COMM] QIDACANDBED 07/28/17 11:30 Oral Nutrition Supplement [COMM] QIDACANDBED 07/28/17 16:30 Oral Nutrition Supplement [COMM] QIDACANDBED 07/28/17 21:00 Oral Nutrition Supplement [COMM] QIDACANDBED 07/29/17 07:30 Oral Nutrition Supplement [COMM] QIDACANDBED 07/29/17 11:30 Oral Nutrition Supplement [COMM] QIDACANDBED 07/29/17 16:30 Oral Nutrition Supplement [COMM] QIDACANDBED 07/29/17 21:00 Oral Nutrition Supplement [COMM] QIDACANDBED 07/30/17 07:30 Oral Nutrition Supplement [COMM] QIDACANDBED 07/30/17 11:30 Oral Nutrition Supplement [COMM] QIDACANDBED 07/30/17 16:30 Oral Nutrition Supplement [COMM] QIDACANDBED 07/30/17 21:00 Oral Nutrition Supplement [COMM] QIDACANDBED 07/31/17 07:30 Oral Nutrition Supplement [COMM] QIDACANDBED 07/31/17 11:30 Oral Nutrition Supplement [COMM] QIDACANDBED 07/31/17 16:30 Oral Nutrition Supplement [COMM] QIDACANDBED 07/31/17 21:00 Oral Nutrition Supplement [COMM] QIDACANDBED - Plan Plan:: ASSESSMENT AND PLAN 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 Improved since admission, left-sided abdominal and chest pain have resolved. Venous Doppler study showed only modest amount of clot. Vital signs have been stable with good oxygenation. -IV heparin per protocol, plan to transition to Lovenox in 1 day -Warfarin 2.5 mg by mouth today -INR in a.m. RECENT PNEUMONIA-no evidence of infiltrate on CT scan today -Hold on antibiotic therapy RECENT [id number] abdominal pain likely related to pulmonary embolism and infarct. Mild elevation in lipase likely secondary to chronic pancreatitis. Question of underlying malignancy, biopsy was negative. Continues to have difficulty with oral intake, but denies significant pain. -Dietary consult -PT evaluation and treatment -Dietary supplement 4 times daily COPD-no evidence of acute exacerbation -Continue outpatient medical therapy CORONARY ARTERY DISEASE-currently asymptomatic -Continue outpatient medical therapy MAINTENANCE ISSUES -DVT prophylaxis; current IV heparin should provide adequate DVT prophylaxis -GI prophylaxis; continue outpatient PPI therapy -Pineda catheter; not indicated -Nutrition; regular diet -Nicotine dependence; not required CODE STATUS-FULL CODE ADMISSION STATUS-patient will be admitted to inpatient status, expect at least a 2 night hospital stay for evaluation and management of problems as outlined above. At the time of this admission I do not reasonably expected evaluation and management of this problem will require more than a 96 hour hospital stay. DISPOSITION-anticipate discharge to home after the hospital stay. PRIMARY CARE PROVIDER-currently receives care from the [place] [facility]
[2017-07-26] MEDS ORDERED: Warfarin 2.5 MG Tab PO ONE (13:00)
[2017-07-26] MEDS: Melatonin 3 MG Tab PO SCH ×2 (13:08→20:59)
[2017-07-26] MEDS: Heparin Sodium/D5W 25,000 UNITS/500 ML BAG IV SCH ×2 (13:34→19:30)
[2017-07-26] MEDS: atorvaSTATin 10 MG Tab PO SCH (20:59)
[2017-07-26] MEDS: Aspirin 81 MG Tab.EC PO SCH (21:00)
[2017-07-27] MEDS: Sucralfate 1 GM Tab PO SCH ×4 (05:39→22:17)
[2017-07-27] MEDS: oxyCODONE 5 MG Tab PO PRN ×4 (05:46→22:41)
[2017-07-27] MEDS: ACLIDINIUM BROMIDE INH SCH (05:48)
[2017-07-27] MEDS: Albuterol/Ipratropium 3.0-0.5 MG/3 ML Neb Soln INH SCH ×4 (07:20→22:10)
[2017-07-27] MEDS: Formoterol/Mometasone 200-5 MCG 8.8 GM Inhaler IH SCH ×2 (07:20→22:09)
[2017-07-27] MEDS: Tiotropium Inhaler 18 MCG Inhalation Powder Cap Kit of 5 INH SCH (07:20)
[2017-07-27] MEDS: Cholestyramine/Sucrose Powder 4 GM Packet PO SCH ×3 (08:10→22:09)
[2017-07-27] MEDS: Pantoprazole 40 MG Tab.CR PO SCH (08:10)
[2017-07-27] MEDS: Carvedilol 6.25 MG Tab PO SCH ×2 (08:12→22:09)
[2017-07-27] MEDS: Losartan 50 MG Tab PO SCH (08:13)
[2017-07-27] MEDS: Hydrochlorothiazide 25 MG Tab PO SCH (08:14)
[2017-07-27] MEDS: Fenofibrate,Micronized 67 MG Cap PO SCH (08:14)
[2017-07-27] MEDS: Magnesium Oxide 400 MG Tab PO SCH ×2 (08:15→22:09)
[2017-07-27] MEDS ORDERED: Potassium Chloride 20 MEQ Tab.ER PO ONE (09:00)
[2017-07-27] MEDS ORDERED: Magnesium Sulfate/Water 2 GM in Premix Bag 1 BAG IV ONE (10:00)
[2017-07-27] MEDS: Enoxaparin 100 MG/1 ML Syringe SUBCUT SCH (10:10)
--- NOTE | 2017-07-27 10:52 | PCM.PN ---
- General Info Date of Service: 07/27/17 Functional Status: Reports: Pain Controlled, Urinating - Review of Systems General: Reports: Weakness. Denies: Fever, Chills Pulmonary: Reports: No Symptoms Cardiovascular: Reports: No Symptoms Gastrointestinal: Reports: No Symptoms Systems Review Comment:: Mr. Mukherjee has been stable over the past 24 hours, oral intake remains poor. He has been getting up and ambulating with assistance of physical therapy and nursing staff. Denies significant shortness of breath and left chest wall and abdominal pain has resolved. Vital signs have been stable and he has remained afebrile. - Patient Data Vitals - Most Recent: Last Vital Signs Temp 96.8 F 07/27/17 07:45 Pulse 65 07/27/17 08:12 Resp 20 07/27/17 07:45 BP 118/65 07/27/17 08:13 Pulse Ox 98 07/27/17 07:45 Weight - Most Recent: 141 lb 1.533 oz I&O - Last 24 Hours: Intake & Output 07/26/17 07/27/17 07/27/17 22:59 06:59 14:59 Intake Total 728 Output Total 700 Balance -700 728 Lab Results Last 24 Hours: Laboratory Results - last 24 hr 07/26/17 07/26/17 07/27/17 Range/Units 12:58 19:01 01:55 PT (9.5-12.0) sec INR (0.80-1.20) APTT 80.5 H 75.3 H 74.1 H (27.0-36.0) sec Sodium (140-148) mmol/L Potassium (3.6-5.2) mmol/L Chloride (100-108) mmol/L Carbon Dioxide (21-32) mmol/L Anion Gap (5.0-14.0) mmol/L BUN (7-18) mg/dL Creatinine (0.8-1.3) mg/dL Est Cr Clr Drug Dosing mL/min Estimated GFR (MDRD) (>60) Glucose (74-106) mg/dL Calcium (8.5-10.1) mg/dL Magnesium (1.8-2.4) mg/dL 07/27/17 07/27/17 07/27/17 Range/Units 05:45 05:45 08:40 PT 52.9 H (9.5-12.0) sec INR 4.64 H* D (0.80-1.20) APTT 53.9 H (27.0-36.0) sec Sodium 137 L (140-148) mmol/L Potassium 3.4 L (3.6-5.2) mmol/L Chloride 102 (100-108) mmol/L Carbon Dioxide 29 (21-32) mmol/L Anion Gap 9.4 (5.0-14.0) mmol/L BUN 13 (7-18) mg/dL Creatinine 0.8 (0.8-1.3) mg/dL Est Cr Clr Drug Dosing 73.33 mL/min Estimated GFR (MDRD) > 60 (>60) Glucose 91 (74-106) mg/dL Calcium 7.9 L (8.5-10.1) mg/dL Magnesium 1.7 L (1.8-2.4) mg/dL Med Orders - Current: Current Medications Acetaminophen (Tylenol) 650 mg PO Q4H PRN PRN Reason: Pain (Mild 1-3)/fever Last Admin: 07/26/17 08:35 Dose: 650 mg Albuterol (Proventil Neb Soln) 2.5 mg NEB Q4H PRN PRN Reason: Shortness Of Breath/wheezing Last Admin: 07/26/17 03:17 Dose: 2.5 mg Albuterol (Ventolin Hfa) 0 gm INH ASDIRECTED PRN PRN Reason: Wheezing Albuterol/Ipratropium (Duoneb 3.0-0.5 Mg/3 Ml) 3 ml INH QIDRT REPLACED BY [facility] Last Admin: 07/27/17 07:20 Dose: 3 ml Aspirin (Halfprin) 81 mg PO BEDTIME REPLACED BY [facility] Last Admin: 07/26/17 21:00 Dose: 81 mg Atorvastatin Calcium (Lipitor) 10 mg PO BEDTIME REPLACED BY [facility] Last Admin: 07/26/17 20:59 Dose: 10 mg Carvedilol (Coreg) 6.25 mg PO BID REPLACED BY [facility] Last Admin: 07/27/17 08:12 Dose: 6.25 mg Cholestyramine Resin (Cholestyramine Packet) 4 gm PO TID REPLACED BY [facility] Last Admin: 07/27/17 08:10 Dose: 4 gm Docusate Sodium (Colace) 100 mg PO BID PRN PRN Reason: Constipation Enoxaparin Sodium (Lovenox) 100 mg SUBCUT DAILY REPLACED BY [facility] Last Admin: 07/27/17 10:10 Dose: 100 mg Fenofibrate (Fenofibrate) 67 mg PO DAILY REPLACED BY [facility] Last Admin: 07/27/17 08:14 Dose: 67 mg Hydrochlorothiazide (Hydrochlorothiazide) 25 mg PO DAILY REPLACED BY [facility] Last Admin: 07/27/17 08:14 Dose: 25 mg Hydroxyzine HCl (Atarax) 25 mg PO TID PRN PRN Reason: Anxiety Last Admin: 07/26/17 11:31 Dose: 25 mg Magnesium Sulfate 2 gm/ Premix 50 mls @ 25 mls/hr IV ONETIME ONE Stop: 07/27/17 11:59 Last Admin: 07/27/17 10:09 Dose: 25 mls/hr Losartan Potassium (Cozaar) 100 mg PO DAILY REPLACED BY [facility] Last Admin: 07/27/17 08:13 Dose: 100 mg Magnesium Hydroxide (Milk Of Magnesia) 30 ml PO Q12H PRN PRN Reason: Constipation Magnesium Oxide (Magnesium Oxide) 400 mg PO BID REPLACED BY [facility] Last Admin: 07/27/17 08:15 Dose: 400 mg Melatonin (Melatonin) 9 mg PO BEDTIME REPLACED BY [facility] Last Admin: 07/26/17 20:59 Dose: 9 mg Mometasone Furoate/Formoterol Fumar (Dulera 200-5 Mcg) 2 puff IH BIDRT REPLACED BY [facility] Last Admin: 07/27/17 07:20 Dose: 2 puff Ondansetron HCl (Zofran) 4 mg IV Q4H PRN PRN Reason: Nausea/Vomiting Oxycodone HCl (Oxycodone) 10 mg PO Q4H PRN PRN Reason: Pain (moderate 4-6) Last Admin: 07/27/17 05:46 Dose: 5 mg Pantoprazole Sodium (Protonix) 40 mg PO ACBREAKFAST REPLACED BY [facility] Last Admin: 07/27/17 08:10 Dose: 40 mg Polyethylene Glycol (Miralax) 17 gm PO DAILY PRN PRN Reason: Constipation Ranitidine HCl (Zantac) 150 mg PO BEDTIME REPLACED BY [facility] Last Admin: 07/26/17 21:00 Dose: 150 mg Sodium Chloride (Saline Flush) 10 ml FLUSH ASDIRECTED PRN PRN Reason: Keep Vein Open Sucralfate (Carafate) 1 gm PO QID REPLACED BY [facility] Last Admin: 07/27/17 10:08 Dose: 1 gm Tiotropium [place] (Spiriva Handihaler) 18 mcg INH DAILY@0700 REPLACED BY [facility] Last Admin: 07/27/17 07:20 Dose: 1 capful Discontinued Medications Aclidinium [place] (Tudorza Pressair) 400 mcg INH BIDRT REPLACED BY [facility] Last Admin: 07/27/17 05:48 Dose: Not Given Heparin Sodium (Porcine) (Heparin Sodium) 4,000 units IVPUSH ONETIME ONE Stop: 07/25/17 18:35 Last Admin: 07/25/17 18:56 Dose: 4,000 units Sodium Chloride (Normal Saline) 1,000 mls @ 500 mls/hr IV ASDIRECTED REPLACED BY [facility] Last Admin: 07/25/17 18:17 Dose: 500 mls/hr Sodium Chloride (Normal Saline) 75 mls @ 3 mls/sec IV ONETIME ONE Stop: 07/25/17 17:45 Last Admin: 07/25/17 18:09 Dose: 3 mls/sec Heparin Sodium/Dextrose (Heparin 25,000 Units In D5w 500 Ml) 25,000 units in 500 mls @ 0 mls/hr IV TITRATE KARLA; 18 UNITS/KG/HR PRN Reason: Protocol Last Titration: 07/27/17 02:21 Dose: 10 units/kg/hr, 12.8 mls/hr Magnesium Sulfate 2 gm/ Premix 50 mls @ 25 mls/hr IV Q6H REPLACED BY [facility] Stop: 07/26/17 17:59 Last Admin: 07/26/17 16:50 Dose: 25 mls/hr Iopamidol (Isovue-300 (61%)) 100 ml IV . DIRECTED PRN PRN Reason: RADIOLOGY EXAM Last Admin: 07/25/17 18:09 Dose: 100 ml Mometasone Furoate/Formoterol Fumar (Dulera 200-5 Mcg) 0 puff IH BIDRT REPLACED BY [facility] Last Admin: 07/25/17 20:42 Dose: 2 puff Oxycodone/Acetaminophen (Percocet 325-5 Mg) 1 tab PO ONETIME ONE Stop: 07/25/17 15:46 Last Admin: 07/25/17 16:18 Dose: 1 tab Potassium Chloride (Klor-Con M20) 40 meq PO ONETIME ONE Stop: 07/26/17 09:31 Last Admin: 07/26/17 10:03 Dose: 40 meq Potassium Chloride (Klor-Con M20) 40 meq PO ONETIME ONE Stop: 07/27/17 09:01 Last Admin: 07/27/17 10:06 Dose: 40 meq Sodium Chloride (Saline Flush) 10 ml FLUSH ASDIRECTED PRN PRN Reason: Keep Vein Open Last Admin: 07/25/17 18:18 Dose: 10 ml Warfarin Sodium (Coumadin) 7.5 mg PO ONETIME ONE Stop: 07/25/17 21:01 Last Admin: 07/25/17 21:19 Dose: 7.5 mg Warfarin Sodium (Coumadin) Confirm Administered Dose 2.5 mg .ROUTE .STK-MED ONE Stop: 07/25/17 21:18 Last Admin: 07/25/17 21:22 Dose: Not Given Warfarin Sodium (Coumadin) Confirm Administered Dose 5 mg .ROUTE .STK-MED ONE Stop: 07/25/17 21:18 Last Admin: 07/25/17 21:22 Dose: Not Given Warfarin Sodium (Coumadin) 2.5 mg PO ONETIME ONE Stop: 07/26/17 13:01 Last Admin: 07/26/17 13:07 Dose: 2.5 mg - Exam Quality Assessment: DVT Prophylaxis General: Alert, Oriented, Cooperative, No Acute Distress Lungs: Clear to Auscultation, Normal Respiratory Effort Cardiovascular: Regular Rate, Regular Rhythm, No Murmurs GI/Abdominal Exam: Normal Bowel Sounds, Soft, Non-Tender, No Distention Extremities: Non-Tender, No Pedal Edema Skin: Warm, Dry - Problem List Review Problem List Initiated/Reviewed/Updated: Yes - My Orders Last 24 Hours: My Active Orders 07/26/17 12:52 Consult to Adjunct Faculty Instructor [CONS] Routine Consult to Physical Therapy [PT Evaluation and Treatment] [CONS] Routine 07/26/17 13:00 Melatonin 9 mg PO BEDTIME 07/26/17 16:30 Oral Nutrition Supplement [COMM] QIDACANDBED 07/26/17 21:00 Oral Nutrition Supplement [COMM] QIDACANDBED 07/27/17 07:30 Oral Nutrition Supplement [COMM] QIDACANDBED 07/27/17 09:00 Enoxaparin [Lovenox] 100 mg SUBCUT DAILY 07/27/17 10:00 Magnesium Sulfate/Water [Magnesium Sulfate 2 GM in Water 50 ML] 2 gm Premix Bag 1 bag IV ONETIME 07/27/17 10:49 Convert IV to Saline Lock [OM.PC] Routine 07/27/17 11:30 Oral Nutrition Supplement [COMM] QIDACANDBED 07/27/17 16:30 Oral Nutrition Supplement [COMM] QIDACANDBED 07/27/17 21:00 Oral Nutrition Supplement [COMM] QIDACANDBED 07/28/17 05:00 BASIC METABOLIC PANEL,BMP [CHEM] Timed INR,PT,PROTHROMBIN TIME [COAG] Timed 07/28/17 07:30 Oral Nutrition Supplement [COMM] QIDACANDBED 07/28/17 11:30 Oral Nutrition Supplement [COMM] QIDACANDBED 07/28/17 16:30 Oral Nutrition Supplement [COMM] QIDACANDBED 07/28/17 21:00 Oral Nutrition Supplement [COMM] QIDACANDBED 07/29/17 07:30 Oral Nutrition Supplement [COMM] QIDACANDBED 07/29/17 11:30 Oral Nutrition Supplement [COMM] QIDACANDBED 07/29/17 16:30 Oral Nutrition Supplement [COMM] QIDACANDBED 07/29/17 21:00 Oral Nutrition Supplement [COMM] QIDACANDBED 07/30/17 07:30 Oral Nutrition Supplement [COMM] QIDACANDBED 07/30/17 11:30 Oral Nutrition Supplement [COMM] QIDACANDBED 07/30/17 16:30 Oral Nutrition Supplement [COMM] QIDACANDBED 07/30/17 21:00 Oral Nutrition Supplement [COMM] QIDACANDBED 07/31/17 07:30 Oral Nutrition Supplement [COMM] QIDACANDBED 07/31/17 11:30 Oral Nutrition Supplement [COMM] QIDACANDBED 07/31/17 16:30 Oral Nutrition Supplement [COMM] QIDACANDBED 07/31/17 21:00 Oral Nutrition Supplement [COMM] QIDACANDBED - Plan Plan:: ASSESSMENT AND PLAN 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 Improved since admission, left-sided abdominal and chest pain have resolved. INR is supratherapeutic today. -Lovenox 100 mg subcutaneous daily -Hold warfarin today -INR in a.m. RECENT PNEUMONIA-no evidence of infiltrate on CT scan today -Hold on antibiotic therapy RECENT [id number] abdominal pain likely related to pulmonary embolism and infarct. Mild elevation in lipase likely secondary to chronic pancreatitis. Question of underlying malignancy, biopsy was negative. Continues to have difficulty with oral intake, but denies significant pain. -Dietary consult -PT evaluation and treatment -Dietary supplement 4 times daily COPD-no evidence of acute exacerbation -Continue outpatient medical therapy CORONARY ARTERY DISEASE-currently asymptomatic -Continue outpatient medical therapy MAINTENANCE ISSUES -DVT prophylaxis; current IV heparin should provide adequate DVT prophylaxis -GI prophylaxis; continue outpatient PPI therapy -Pineda catheter; not indicated -Nutrition; regular diet -Nicotine dependence; not required CODE STATUS-FULL CODE ADMISSION STATUS-patient will be admitted to inpatient status, expect at least a 2 night hospital stay for evaluation and management of problems as outlined above. At the time of this admission I do not reasonably expected evaluation and management of this problem will require more than a 96 hour hospital stay. DISPOSITION-anticipate discharge to home after the hospital stay. PRIMARY CARE PROVIDER-currently receives care from the [facility] system
[2017-07-27] MEDS: Acetaminophen 325 MG Tab PO PRN (15:26)
[2017-07-27] MEDS: Polyethylene Glycol 3350 Powder 17 GM Packet PO PRN (16:11)
[2017-07-27] MEDS: Aspirin 81 MG Tab.EC PO SCH (22:09)
[2017-07-27] MEDS: atorvaSTATin 10 MG Tab PO SCH (22:09)
[2017-07-27] MEDS: Melatonin 3 MG Tab PO SCH (22:10)
[2017-07-28] MEDS ORDERED: Phytonadione 1 MG in Sodium Chloride 0.9% 50 ML IV ONE (06:01)
[2017-07-28] MEDS: Sucralfate 1 GM Tab PO SCH ×4 (06:30→21:01)
[2017-07-28] MEDS: Albuterol/Ipratropium 3.0-0.5 MG/3 ML Neb Soln INH SCH ×4 (07:20→20:57)
[2017-07-28] MEDS: Tiotropium Inhaler 18 MCG Inhalation Powder Cap Kit of 5 INH SCH (07:22)
[2017-07-28] MEDS: Formoterol/Mometasone 200-5 MCG 8.8 GM Inhaler IH SCH ×2 (07:23→20:56)
[2017-07-28] MEDS: Pantoprazole 40 MG Tab.CR PO SCH (08:37)
[2017-07-28] MEDS: Cholestyramine/Sucrose Powder 4 GM Packet PO SCH ×3 (08:37→20:54)
[2017-07-28] MEDS: Carvedilol 6.25 MG Tab PO SCH ×2 (09:51→20:55)
[2017-07-28] MEDS: Losartan 50 MG Tab PO SCH (09:52)
[2017-07-28] MEDS: Hydrochlorothiazide 25 MG Tab PO SCH (09:53)
[2017-07-28] MEDS: Fenofibrate,Micronized 67 MG Cap PO SCH (09:53)
[2017-07-28] MEDS: Magnesium Oxide 400 MG Tab PO SCH ×2 (09:55→20:55)
[2017-07-28] MEDS: oxyCODONE 5 MG Tab PO PRN ×2 (10:05→19:40)
[2017-07-28] MEDS: Enoxaparin 100 MG/1 ML Syringe SUBCUT SCH (14:04)
--- NOTE | 2017-07-28 14:26 | PCM.PN ---
- General Info Date of Service: 07/28/17 Functional Status: Reports: Pain Controlled, Tolerating Diet, Urinating - Review of Systems General: Reports: Weakness. Denies: Fever, Chills Pulmonary: Reports: Shortness of Breath. Denies: Pleuritic Chest Pain, Cough, Sputum, Hemoptysis, Wheezing Cardiovascular: Reports: Dyspnea on Exertion. Denies: Chest Pain, Palpitations , Orthopnea, PND, Edema Gastrointestinal: Reports: Decreased Appetite. Denies: Abdominal Pain, Constipation, Diarrhea, Difficulty Swallowing, Nausea, Vomiting Systems Review Comment:: Mr. Mukherjee has remained stable since yesterday, denies significant shortness of breath or chest pain. Vital signs have been stable and he has remained afebrile. Energy level and appetite seem to be slowly improving. INR this morning was supratherapeutic at greater than 7 and he did receive 1 mg of IV vitamin K. - Patient Data Vitals - Most Recent: Last Vital Signs Temp 97.8 F 07/28/17 11:33 Pulse 67 07/28/17 11:33 Resp 18 07/28/17 11:33 BP 113/52 L 07/28/17 11:33 Pulse Ox 100 07/28/17 11:33 Weight - Most Recent: 141 lb 1.533 oz I&O - Last 24 Hours: Intake & Output 07/27/17 07/28/17 07/28/17 22:59 06:59 14:59 Intake Total 240 50 360 Output Total 50 125 Balance 190 -75 360 Lab Results Last 24 Hours: Laboratory Results - last 24 hr 07/28/17 07/28/17 Range/Units 05:05 05:05 PT 90.8 H (9.5-12.0) sec INR 7.79 H* D (0.80-1.20) Sodium 135 L (140-148) mmol/L Potassium 3.8 (3.6-5.2) mmol/L Chloride 102 (100-108) mmol/L Carbon Dioxide 27 (21-32) mmol/L Anion Gap 9.8 (5.0-14.0) mmol/L BUN 11 (7-18) mg/dL Creatinine 0.8 (0.8-1.3) mg/dL Est Cr Clr Drug Dosing 73.33 mL/min Estimated GFR (MDRD) > 60 (>60) Glucose 90 (74-106) mg/dL Calcium 7.8 L (8.5-10.1) mg/dL Med Orders - Current: Current Medications Acetaminophen (Tylenol) 650 mg PO Q4H PRN PRN Reason: Pain (Mild 1-3)/fever Last Admin: 07/27/17 15:26 Dose: 650 mg Albuterol (Proventil Neb Soln) 2.5 mg NEB Q4H PRN PRN Reason: Shortness Of Breath/wheezing Last Admin: 07/26/17 03:17 Dose: 2.5 mg Albuterol (Ventolin Hfa) 0 gm INH ASDIRECTED PRN PRN Reason: Wheezing Albuterol/Ipratropium (Duoneb 3.0-0.5 Mg/3 Ml) 3 ml INH QIDRT [facility] Last Admin: 07/28/17 10:50 Dose: 3 ml Aspirin (Halfprin) 81 mg PO BEDTIME [facility] Last Admin: 07/27/17 22:09 Dose: 81 mg Atorvastatin Calcium (Lipitor) 10 mg PO BEDTIME [facility] Last Admin: 07/27/17 22:09 Dose: 10 mg Carvedilol (Coreg) 6.25 mg PO BID [facility] Last Admin: 07/28/17 09:51 Dose: 6.25 mg Cholestyramine Resin (Cholestyramine Packet) 4 gm PO TID [facility] Last Admin: 07/28/17 14:04 Dose: 4 gm Docusate Sodium (Colace) 100 mg PO BID PRN PRN Reason: Constipation Enoxaparin Sodium (Lovenox) 100 mg SUBCUT DAILY [facility] Last Admin: 07/28/17 14:04 Dose: 100 mg Fenofibrate (Fenofibrate) 67 mg PO DAILY [facility] Last Admin: 07/28/17 09:53 Dose: 67 mg Hydrochlorothiazide (Hydrochlorothiazide) 25 mg PO DAILY [facility] Last Admin: 07/28/17 09:53 Dose: 25 mg Hydroxyzine HCl (Atarax) 25 mg PO TID PRN PRN Reason: Anxiety Last Admin: 07/26/17 11:31 Dose: 25 mg Losartan Potassium (Cozaar) 100 mg PO DAILY [facility] Last Admin: 07/28/17 09:52 Dose: 100 mg Magnesium Hydroxide (Milk Of Magnesia) 30 ml PO Q12H PRN PRN Reason: Constipation Magnesium Oxide (Magnesium Oxide) 400 mg PO BID [facility] Last Admin: 07/28/17 09:55 Dose: 400 mg Melatonin (Melatonin) 9 mg PO BEDTIME [facility] Last Admin: 07/27/17 22:10 Dose: 9 mg Mometasone Furoate/Formoterol Fumar (Dulera 200-5 Mcg) 2 puff IH BIDRT [facility] Last Admin: 07/28/17 07:23 Dose: 2 puff Ondansetron HCl (Zofran) 4 mg IV Q4H PRN PRN Reason: Nausea/Vomiting Oxycodone HCl (Oxycodone) 10 mg PO Q4H PRN PRN Reason: Pain (moderate 4-6) Last Admin: 07/28/17 10:05 Dose: 10 mg Pantoprazole Sodium (Protonix) 40 mg PO ACBREAKFAST [facility] Last Admin: 07/28/17 08:37 Dose: 40 mg Polyethylene Glycol (Miralax) 17 gm PO DAILY PRN PRN Reason: Constipation Last Admin: 07/27/17 16:11 Dose: 17 gm Ranitidine HCl (Zantac) 150 mg PO BEDTIME [facility] Last Admin: 07/27/17 22:09 Dose: 150 mg Sodium Chloride (Saline Flush) 10 ml FLUSH ASDIRECTED PRN PRN Reason: Keep Vein Open Sucralfate (Carafate) 1 gm PO QID [facility] Last Admin: 07/28/17 09:55 Dose: 1 gm Tiotropium [place] (Spiriva Handihaler) 18 mcg INH DAILY@0700 [facility] Last Admin: 07/28/17 07:22 Dose: 1 cap Discontinued Medications Aclidinium [place] (Tudorza Pressair) 400 mcg INH BIDRT [facility] Last Admin: 07/27/17 05:48 Dose: Not Given Heparin Sodium (Porcine) (Heparin Sodium) 4,000 units IVPUSH ONETIME ONE Stop: 07/25/17 18:35 Last Admin: 07/25/17 18:56 Dose: 4,000 units Sodium Chloride (Normal Saline) 1,000 mls @ 500 mls/hr IV ASDIRECTED [facility] Last Admin: 07/25/17 18:17 Dose: 500 mls/hr Sodium Chloride (Normal Saline) 75 mls @ 3 mls/sec IV ONETIME ONE Stop: 07/25/17 17:45 Last Admin: 07/25/17 18:09 Dose: 3 mls/sec Heparin Sodium/Dextrose (Heparin 25,000 Units In D5w 500 Ml) 25,000 units in 500 mls @ 0 mls/hr IV TITRATE KARLA; 18 UNITS/KG/HR PRN Reason: Protocol Last Titration: 07/27/17 02:21 Dose: 10 units/kg/hr, 12.8 mls/hr Magnesium Sulfate 2 gm/ Premix 50 mls @ 25 mls/hr IV Q6H [facility] Stop: 07/26/17 17:59 Last Admin: 07/26/17 16:50 Dose: 25 mls/hr Magnesium Sulfate 2 gm/ Premix 50 mls @ 25 mls/hr IV ONETIME ONE Stop: 07/27/17 11:59 Last Admin: 07/27/17 10:09 Dose: 25 mls/hr Phytonadione 1 mg/ Sodium (Chloride) 50.5 mls @ 100 mls/hr IV ONETIME ONE Stop: 07/28/17 06:31 Last Admin: 07/28/17 06:31 Dose: 100 mls/hr Iopamidol (Isovue-300 (61%)) 100 ml IV . DIRECTED PRN PRN Reason: RADIOLOGY EXAM Last Admin: 07/25/17 18:09 Dose: 100 ml Mometasone Furoate/Formoterol Fumar (Dulera 200-5 Mcg) 0 puff IH BIDRT [facility] Last Admin: 07/25/17 20:42 Dose: 2 puff Oxycodone/Acetaminophen (Percocet 325-5 Mg) 1 tab PO ONETIME ONE Stop: 07/25/17 15:46 Last Admin: 07/25/17 16:18 Dose: 1 tab Potassium Chloride (Klor-Con M20) 40 meq PO ONETIME ONE Stop: 07/26/17 09:31 Last Admin: 07/26/17 10:03 Dose: 40 meq Potassium Chloride (Klor-Con M20) 40 meq PO ONETIME ONE Stop: 07/27/17 09:01 Last Admin: 07/27/17 10:06 Dose: 40 meq Sodium Chloride (Saline Flush) 10 ml FLUSH ASDIRECTED PRN PRN Reason: Keep Vein Open Last Admin: 07/25/17 18:18 Dose: 10 ml Warfarin Sodium (Coumadin) 7.5 mg PO ONETIME ONE Stop: 07/25/17 21:01 Last Admin: 07/25/17 21:19 Dose: 7.5 mg Warfarin Sodium (Coumadin) Confirm Administered Dose 2.5 mg .ROUTE .STK-MED ONE Stop: 07/25/17 21:18 Last Admin: 07/25/17 21:22 Dose: Not Given Warfarin Sodium (Coumadin) Confirm Administered Dose 5 mg .ROUTE .STK-MED ONE Stop: 07/25/17 21:18 Last Admin: 07/25/17 21:22 Dose: Not Given Warfarin Sodium (Coumadin) 2.5 mg PO ONETIME ONE Stop: 07/26/17 13:01 Last Admin: 07/26/17 13:07 Dose: 2.5 mg - Exam Quality Assessment: DVT Prophylaxis General: Alert, Oriented, Cooperative, No Acute Distress Lungs: Clear to Auscultation, Normal Respiratory Effort Cardiovascular: Regular Rate, Regular Rhythm, No Murmurs GI/Abdominal Exam: Normal Bowel Sounds, Soft, Non-Tender, No Organomegaly, No Distention Extremities: Non-Tender, No Pedal Edema Skin: Warm, Dry, Intact - Problem List Review Problem List Initiated/Reviewed/Updated: Yes - My Orders Last 24 Hours: My Active Orders 07/27/17 16:30 Oral Nutrition Supplement [COMM] QIDACANDBED 07/27/17 21:00 Oral Nutrition Supplement [COMM] QIDACANDBED 07/28/17 07:30 Oral Nutrition Supplement [COMM] QIDACANDBED 07/28/17 11:30 Oral Nutrition Supplement [COMM] QIDACANDBED 07/28/17 16:30 Oral Nutrition Supplement [COMM] QIDACANDBED 07/28/17 21:00 Oral Nutrition Supplement [COMM] QIDACANDBED 07/29/17 05:00 INR,PT,PROTHROMBIN TIME [COAG] Timed 07/29/17 07:30 Oral Nutrition Supplement [COMM] QIDACANDBED 07/29/17 11:30 Oral Nutrition Supplement [COMM] QIDACANDBED 07/29/17 16:30 Oral Nutrition Supplement [COMM] QIDACANDBED 07/29/17 21:00 Oral Nutrition Supplement [COMM] QIDACANDBED 07/30/17 07:30 Oral Nutrition Supplement [COMM] QIDACANDBED 07/30/17 11:30 Oral Nutrition Supplement [COMM] QIDACANDBED 07/30/17 16:30 Oral Nutrition Supplement [COMM] QIDACANDBED 07/30/17 21:00 Oral Nutrition Supplement [COMM] QIDACANDBED 07/31/17 07:30 Oral Nutrition Supplement [COMM] QIDACANDBED 07/31/17 11:30 Oral Nutrition Supplement [COMM] QIDACANDBED 07/31/17 16:30 Oral Nutrition Supplement [COMM] QIDACANDBED 07/31/17 21:00 Oral Nutrition Supplement [COMM] QIDACANDBED - Plan Plan:: ASSESSMENT AND PLAN 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 Improved since admission, left-sided abdominal and chest pain have resolved. INR remains supratherapeutic today. He was given 1 mg of IV vitamin K earlier this morning because of marked elevation in INR. -Lovenox 100 mg subcutaneous daily -Hold warfarin today -INR in a.m. RECENT PNEUMONIA-no evidence of infiltrate on CT scan today -Hold on antibiotic therapy RECENT [id number] abdominal pain likely related to pulmonary embolism and infarct. Mild elevation in lipase likely secondary to chronic pancreatitis. Question of underlying malignancy, biopsy was negative. Continues to have difficulty with oral intake, but denies significant pain. -Dietary consult -PT evaluation and treatment -Dietary supplement 4 times daily COPD-no evidence of acute exacerbation -Continue outpatient medical therapy CORONARY ARTERY DISEASE-currently asymptomatic -Continue outpatient medical therapy MAINTENANCE ISSUES -DVT prophylaxis; current IV heparin should provide adequate DVT prophylaxis -GI prophylaxis; continue outpatient PPI therapy -Pineda catheter; not indicated -Nutrition; regular diet -Nicotine dependence; not required CODE STATUS-FULL CODE ADMISSION STATUS-patient will be admitted to inpatient status, expect at least a 2 night hospital stay for evaluation and management of problems as outlined above. At the time of this admission I do not reasonably expected evaluation and management of this problem will require more than a 96 hour hospital stay. DISPOSITION-anticipate discharge to home after the hospital stay. PRIMARY CARE PROVIDER-currently receives care from the [facility]
[2017-07-28] MEDS: hydrOXYzine HCl 25 MG Tab PO PRN (16:31)
[2017-07-28] MEDS ORDERED: Aluminum Hydroxide/Magnesium Hydroxide/Simethicone Susp 30 ML Cup PO PRN (19:34)
[2017-07-28] MEDS: Melatonin 3 MG Tab PO SCH (20:54)
[2017-07-28] MEDS: Aspirin 81 MG Tab.EC PO SCH (20:56)
[2017-07-28] MEDS: atorvaSTATin 10 MG Tab PO SCH (20:56)
[2017-07-29] MEDS: Sucralfate 1 GM Tab PO SCH ×4 (06:23→21:00)
[2017-07-29] MEDS: Albuterol/Ipratropium 3.0-0.5 MG/3 ML Neb Soln INH SCH ×4 (07:17→21:00)
[2017-07-29] MEDS: Formoterol/Mometasone 200-5 MCG 8.8 GM Inhaler IH SCH ×2 (07:19→20:51)
[2017-07-29] MEDS: Tiotropium Inhaler 18 MCG Inhalation Powder Cap Kit of 5 INH SCH (07:19)
[2017-07-29] MEDS: Pantoprazole 40 MG Tab.CR PO SCH (07:32)
[2017-07-29] MEDS: Acetaminophen 325 MG Tab PO PRN ×2 (07:41→13:10)
[2017-07-29] MEDS: Carvedilol 6.25 MG Tab PO SCH ×2 (08:24→20:56)
[2017-07-29] MEDS: Losartan 50 MG Tab PO SCH (08:24)
[2017-07-29] MEDS: Hydrochlorothiazide 25 MG Tab PO SCH (08:25)
[2017-07-29] MEDS: Fenofibrate,Micronized 67 MG Cap PO SCH (08:25)
[2017-07-29] MEDS: Magnesium Oxide 400 MG Tab PO SCH ×2 (08:26→20:55)
[2017-07-29] MEDS: Enoxaparin 100 MG/1 ML Syringe SUBCUT SCH (08:31)
[2017-07-29] MEDS: oxyCODONE 5 MG Tab PO PRN ×3 (09:15→19:53)
[2017-07-29] MEDS: Cholestyramine/Sucrose Powder 4 GM Packet PO SCH ×3 (09:15→20:51)
[2017-07-29] MEDS: Polyethylene Glycol 3350 Powder 17 GM Packet PO PRN (09:23)
--- NOTE | 2017-07-29 10:10 | PCM.PN ---
- General Info Date of Service: 07/29/17 Functional Status: Reports: Pain Controlled, Urinating - Review of Systems General: Reports: Weakness. Denies: Fever, Chills Pulmonary: Reports: No Symptoms Cardiovascular: Reports: No Symptoms Gastrointestinal: Reports: No Symptoms Systems Review Comment:: Mr. Mukherjee has remained stable over the past 24 hours, INR this morning is subtherapeutic after receiving 1 mg of IV vitamin K yesterday. Vital signs been stable and he has remained afebrile. Denies current symptoms of shortness of breath or chest pain. Oral intake has remained fairly poor. - Patient Data Vitals - Most Recent: Last Vital Signs Temp 96.7 F 07/29/17 07:11 Pulse 62 07/29/17 08:24 Resp 17 07/29/17 07:11 BP 100/49 L 07/29/17 08:24 Pulse Ox 99 07/29/17 07:20 Weight - Most Recent: 141 lb 1.533 oz I&O - Last 24 Hours: Intake & Output 07/28/17 07/29/17 07/29/17 22:59 06:59 14:59 Intake Total 240 Output Total 250 Balance -10 Lab Results Last 24 Hours: Laboratory Results - last 24 hr 07/29/17 Range/Units 05:36 PT 13.9 H (9.5-12.0) sec INR 1.29 H D (0.80-1.20) Med Orders - Current: Current Medications Acetaminophen (Tylenol) 650 mg PO Q4H PRN PRN Reason: Pain (Mild 1-3)/fever Last Admin: 07/29/17 07:41 Dose: 650 mg Al Hydroxide/Mg Hydroxide (Mag-Al Plus) 30 ml PO Q4H PRN PRN Reason: Heartburn Last Admin: 07/28/17 19:55 Dose: 30 ml Albuterol (Proventil Neb Soln) 2.5 mg NEB Q4H PRN PRN Reason: Shortness Of Breath/wheezing Last Admin: 07/26/17 03:17 Dose: 2.5 mg Albuterol (Ventolin Hfa) 0 gm INH ASDIRECTED PRN PRN Reason: Wheezing Albuterol/Ipratropium (Duoneb 3.0-0.5 Mg/3 Ml) 3 ml INH QIDRT KARLA Last Admin: 07/29/17 07:17 Dose: 3 ml Aspirin (Halfprin) 81 mg PO BEDTIME [facility] Last Admin: 07/28/17 20:56 Dose: 81 mg Atorvastatin Calcium (Lipitor) 10 mg PO BEDTIME [facility] Last Admin: 07/28/17 20:56 Dose: 10 mg Carvedilol (Coreg) 6.25 mg PO BID [facility] Last Admin: 07/29/17 08:24 Dose: 6.25 mg Cholestyramine Resin (Cholestyramine Packet) 4 gm PO TID [facility] Last Admin: 07/29/17 09:15 Dose: 4 gm Docusate Sodium (Colace) 100 mg PO BID PRN PRN Reason: Constipation Last Admin: 07/28/17 20:56 Dose: 100 mg Enoxaparin Sodium (Lovenox) 100 mg SUBCUT DAILY [facility] Last Admin: 07/29/17 08:31 Dose: 100 mg Fenofibrate (Fenofibrate) 67 mg PO DAILY [facility] Last Admin: 07/29/17 08:25 Dose: 67 mg Hydrochlorothiazide (Hydrochlorothiazide) 25 mg PO DAILY [facility] Last Admin: 07/29/17 08:25 Dose: 25 mg Hydroxyzine HCl (Atarax) 25 mg PO TID PRN PRN Reason: Anxiety Last Admin: 07/28/17 16:31 Dose: 25 mg Losartan Potassium (Cozaar) 100 mg PO DAILY [facility] Last Admin: 07/29/17 08:24 Dose: 100 mg Magnesium Hydroxide (Milk Of Magnesia) 30 ml PO Q12H PRN PRN Reason: Constipation Magnesium Oxide (Magnesium Oxide) 400 mg PO BID [facility] Last Admin: 07/29/17 08:26 Dose: 400 mg Melatonin (Melatonin) 9 mg PO BEDTIME [facility] Last Admin: 07/28/17 20:54 Dose: 9 mg Mometasone Furoate/Formoterol Fumar (Dulera 200-5 Mcg) 2 puff IH BIDRT [facility] Last Admin: 07/29/17 07:19 Dose: 2 puff Ondansetron HCl (Zofran) 4 mg IV Q4H PRN PRN Reason: Nausea/Vomiting Last Admin: 07/28/17 22:39 Dose: 4 mg Oxycodone HCl (Oxycodone) 10 mg PO Q4H PRN PRN Reason: Pain (moderate 4-6) Last Admin: 07/29/17 09:15 Dose: 10 mg Pantoprazole Sodium (Protonix) 40 mg PO ACBREAKFAST [facility] Last Admin: 07/29/17 07:32 Dose: 40 mg Polyethylene Glycol (Miralax) 17 gm PO DAILY PRN PRN Reason: Constipation Last Admin: 07/29/17 09:23 Dose: 17 gm Ranitidine HCl (Zantac) 150 mg PO BEDTIME [facility] Last Admin: 07/28/17 20:55 Dose: 150 mg Sodium Chloride (Saline Flush) 10 ml FLUSH ASDIRECTED PRN PRN Reason: Keep Vein Open Sucralfate (Carafate) 1 gm PO QID [facility] Last Admin: 07/29/17 06:23 Dose: 1 gm Tiotropium [place] (Spiriva Handihaler) 18 mcg INH DAILY@0700 [facility] Last Admin: 07/29/17 07:19 Dose: 1 cap Warfarin Sodium (Coumadin) 2.5 mg PO ONETIME ONE Stop: 07/29/17 13:01 Discontinued Medications Aclidinium [place] (Tudorza Pressair) 400 mcg INH BIDRT [facility] Last Admin: 07/27/17 05:48 Dose: Not Given Heparin Sodium (Porcine) (Heparin Sodium) 4,000 units IVPUSH ONETIME ONE Stop: 07/25/17 18:35 Last Admin: 07/25/17 18:56 Dose: 4,000 units Sodium Chloride (Normal Saline) 1,000 mls @ 500 mls/hr IV ASDIRECTED [facility] Last Admin: 07/25/17 18:17 Dose: 500 mls/hr Sodium Chloride (Normal Saline) 75 mls @ 3 mls/sec IV ONETIME ONE Stop: 07/25/17 17:45 Last Admin: 07/25/17 18:09 Dose: 3 mls/sec Heparin Sodium/Dextrose (Heparin 25,000 Units In D5w 500 Ml) 25,000 units in 500 mls @ 0 mls/hr IV TITRATE KARLA; 18 UNITS/KG/HR PRN Reason: Protocol Last Titration: 07/27/17 02:21 Dose: 10 units/kg/hr, 12.8 mls/hr Magnesium Sulfate 2 gm/ Premix 50 mls @ 25 mls/hr IV Q6H [facility] Stop: 07/26/17 17:59 Last Admin: 07/26/17 16:50 Dose: 25 mls/hr Magnesium Sulfate 2 gm/ Premix 50 mls @ 25 mls/hr IV ONETIME ONE Stop: 07/27/17 11:59 Last Admin: 07/27/17 10:09 Dose: 25 mls/hr Phytonadione 1 mg/ Sodium (Chloride) 50.5 mls @ 100 mls/hr IV ONETIME ONE Stop: 07/28/17 06:31 Last Admin: 07/28/17 06:31 Dose: 100 mls/hr Iopamidol (Isovue-300 (61%)) 100 ml IV . DIRECTED PRN PRN Reason: RADIOLOGY EXAM Last Admin: 07/25/17 18:09 Dose: 100 ml Mometasone Furoate/Formoterol Fumar (Dulera 200-5 Mcg) 0 puff IH BIDRT [facility] Last Admin: 07/25/17 20:42 Dose: 2 puff Oxycodone/Acetaminophen (Percocet 325-5 Mg) 1 tab PO ONETIME ONE Stop: 07/25/17 15:46 Last Admin: 07/25/17 16:18 Dose: 1 tab Potassium Chloride (Klor-Con M20) 40 meq PO ONETIME ONE Stop: 07/26/17 09:31 Last Admin: 07/26/17 10:03 Dose: 40 meq Potassium Chloride (Klor-Con M20) 40 meq PO ONETIME ONE Stop: 07/27/17 09:01 Last Admin: 07/27/17 10:06 Dose: 40 meq Sodium Chloride (Saline Flush) 10 ml FLUSH ASDIRECTED PRN PRN Reason: Keep Vein Open Last Admin: 07/25/17 18:18 Dose: 10 ml Warfarin Sodium (Coumadin) 7.5 mg PO ONETIME ONE Stop: 07/25/17 21:01 Last Admin: 07/25/17 21:19 Dose: 7.5 mg Warfarin Sodium (Coumadin) Confirm Administered Dose 2.5 mg .ROUTE .STK-MED ONE Stop: 07/25/17 21:18 Last Admin: 07/25/17 21:22 Dose: Not Given Warfarin Sodium (Coumadin) Confirm Administered Dose 5 mg .ROUTE .STK-MED ONE Stop: 07/25/17 21:18 Last Admin: 07/25/17 21:22 Dose: Not Given Warfarin Sodium (Coumadin) 2.5 mg PO ONETIME ONE Stop: 07/26/17 13:01 Last Admin: 07/26/17 13:07 Dose: 2.5 mg - Exam General: Alert, Oriented, Cooperative, No Acute Distress Lungs: Clear to Auscultation, Normal Respiratory Effort Cardiovascular: Regular Rate, Regular Rhythm, No Murmurs GI/Abdominal Exam: Normal Bowel Sounds, Soft, Non-Tender, No Organomegaly, No Distention Extremities: Non-Tender, No Pedal Edema Skin: Warm, Dry, Intact - Problem List Review Problem List Initiated/Reviewed/Updated: Yes - My Orders Last 24 Hours: My Active Orders 07/28/17 11:30 Oral Nutrition Supplement [COMM] QIDACANDBED 07/28/17 16:30 Oral Nutrition Supplement [COMM] QIDACANDB07/28/17 19:34 Alum Hydrox/Mag Hydrox/Simeth [Mag-Al Plus] 30 ml PO Q4H PRN 07/28/17 21:00 Oral Nutrition Supplement [COMM] QIDACANDBED 07/29/17 07:30 Oral Nutrition Supplement [COMM] QIDACANDBED 07/29/17 11:30 Oral Nutrition Supplement [COMM] QIDACANDBED 07/29/17 13:00 Warfarin [Coumadin] 2.5 mg PO ONETIME ONE 07/29/17 16:30 Oral Nutrition Supplement [COMM] QIDACANDBED 07/29/17 21:00 Oral Nutrition Supplement [COMM] QIDACANDBED 07/30/17 05:11 INR,PT,PROTHROMBIN TIME [COAG] AM 07/30/17 07:30 Oral Nutrition Supplement [COMM] QIDACANDBED 07/30/17 11:30 Oral Nutrition Supplement [COMM] QIDACANDBED 07/30/17 16:30 Oral Nutrition Supplement [COMM] QIDACANDBED 07/30/17 21:00 Oral Nutrition Supplement [COMM] QIDACANDBED 07/31/17 07:30 Oral Nutrition Supplement [COMM] QIDACANDBED 07/31/17 11:30 Oral Nutrition Supplement [COMM] QIDACANDBED 07/31/17 16:30 Oral Nutrition Supplement [COMM] QIDACANDBED 07/31/17 21:00 Oral Nutrition Supplement [COMM] QIDACANDBED - Plan Plan:: ASSESSMENT AND PLAN 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 Improved since admission, left-sided abdominal and chest pain have resolved. INR is now subtherapeutic. -Lovenox 100 mg subcutaneous daily -Warfarin 2.5 mg by mouth today -INR in a.m. RECENT PNEUMONIA-no evidence of infiltrate on CT scan today -Hold on antibiotic therapy RECENT [id number] abdominal pain likely related to pulmonary embolism and infarct. Mild elevation in lipase likely secondary to chronic pancreatitis. Question of underlying malignancy, biopsy was negative. Continues to have difficulty with oral intake, but denies significant pain. -Dietary consult -PT evaluation and treatment -Dietary supplement 4 times daily -Outpatient subspecialty follow-up in [place] in 2 weeks COPD-no evidence of acute exacerbation -Continue outpatient medical therapy CORONARY ARTERY DISEASE-currently asymptomatic -Continue outpatient medical therapy MAINTENANCE ISSUES -DVT prophylaxis; current IV heparin should provide adequate DVT prophylaxis -GI prophylaxis; continue outpatient PPI therapy -Pineda catheter; not indicated -Nutrition; regular diet -Nicotine dependence; not required CODE STATUS-FULL CODE ADMISSION STATUS-patient will be admitted to inpatient status, expect at least a 2 night hospital stay for evaluation and management of problems as outlined above. At the time of this admission I do not reasonably expected evaluation and management of this problem will require more than a 96 hour hospital stay. DISPOSITION-anticipate discharge to home after the hospital stay. PRIMARY CARE- Dr. Naveen Don
[2017-07-29] MEDS ORDERED: Warfarin 2.5 MG Tab PO ONE (13:00)
[2017-07-29] MEDS: hydrOXYzine HCl 25 MG Tab PO PRN (20:50)
[2017-07-29] MEDS: Melatonin 3 MG Tab PO SCH (20:51)
[2017-07-29] MEDS: Aspirin 81 MG Tab.EC PO SCH (20:53)
[2017-07-29] MEDS: atorvaSTATin 10 MG Tab PO SCH (20:54)
[2017-07-30] MEDS: Sucralfate 1 GM Tab PO SCH ×4 (07:58→21:27)
[2017-07-30] MEDS: Pantoprazole 40 MG Tab.CR PO SCH (07:58)
[2017-07-30] MEDS: Carvedilol 6.25 MG Tab PO SCH ×2 (08:00→21:26)
[2017-07-30] MEDS: Hydrochlorothiazide 25 MG Tab PO SCH (08:01)
[2017-07-30] MEDS: Cholestyramine/Sucrose Powder 4 GM Packet PO SCH ×3 (08:01→21:14)
[2017-07-30] MEDS: Losartan 50 MG Tab PO SCH (08:01)
[2017-07-30] MEDS: Fenofibrate,Micronized 67 MG Cap PO SCH (08:01)
[2017-07-30] MEDS: Magnesium Oxide 400 MG Tab PO SCH ×2 (08:02→21:14)
[2017-07-30] MEDS: Enoxaparin 100 MG/1 ML Syringe SUBCUT SCH (08:02)
[2017-07-30] MEDS: Albuterol/Ipratropium 3.0-0.5 MG/3 ML Neb Soln INH SCH ×4 (08:04→21:27)
[2017-07-30] MEDS: Tiotropium Inhaler 18 MCG Inhalation Powder Cap Kit of 5 INH SCH (08:05)
[2017-07-30] MEDS: Formoterol/Mometasone 200-5 MCG 8.8 GM Inhaler IH SCH ×2 (08:05→21:14)
[2017-07-30] MEDS: oxyCODONE 5 MG Tab PO PRN (12:33)
[2017-07-30] MEDS ORDERED: Warfarin 2.5 MG Tab PO ONE (13:00)
--- NOTE | 2017-07-30 13:00 | PCM.PN ---
- General Info Date of Service: 07/30/17 Functional Status: Reports: Pain Controlled, Tolerating Diet, Urinating - Review of Systems General: Reports: Weakness. Denies: Fever, Chills Pulmonary: Reports: No Symptoms Cardiovascular: Reports: No Symptoms Gastrointestinal: Reports: No Symptoms Systems Review Comment:: Mr. Mukherjee has remained stable since yesterday, vital signs have been good and he has remained afebrile. Appetite seems to be improving along with his overall strength. Denies significant shortness of breath or chest pain. INR remains subtherapeutic. - Patient Data Vitals - Most Recent: Last Vital Signs Temp 97.0 F 07/30/17 11:07 Pulse 62 07/30/17 11:07 Resp 18 07/30/17 11:07 BP 105/50 L 07/30/17 11:07 Pulse Ox 93 L 07/30/17 11:02 Weight - Most Recent: 141 lb 1.533 oz I&O - Last 24 Hours: Intake & Output 07/29/17 07/30/17 07/30/17 22:59 06:59 14:59 Intake Total 400 400 Balance 400 400 Lab Results Last 24 Hours: Laboratory Results - last 24 hr 07/30/17 Range/Units 06:05 PT 13.9 H (9.5-12.0) sec INR 1.29 H (0.80-1.20) Med Orders - Current: Current Medications Acetaminophen (Tylenol) 650 mg PO Q4H PRN PRN Reason: Pain (Mild 1-3)/fever Last Admin: 07/29/17 13:10 Dose: 650 mg Al Hydroxide/Mg Hydroxide (Mag-Al Plus) 30 ml PO Q4H PRN PRN Reason: Heartburn Last Admin: 07/28/17 19:55 Dose: 30 ml Albuterol (Proventil Neb Soln) 2.5 mg NEB Q4H PRN PRN Reason: Shortness Of Breath/wheezing Last Admin: 07/26/17 03:17 Dose: 2.5 mg Albuterol (Ventolin Hfa) 0 gm INH ASDIRECTED PRN PRN Reason: Wheezing Albuterol/Ipratropium (Duoneb 3.0-0.5 Mg/3 Ml) 3 ml INH QIDRT [facility]ARLA Last Admin: 07/30/17 11:01 Dose: 3 ml Aspirin (Halfprin) 81 mg PO BEDTIME [facility] Last Admin: 07/29/17 20:53 Dose: 81 mg Atorvastatin Calcium (Lipitor) 10 mg PO BEDTIME [facility] Last Admin: 07/29/17 20:54 Dose: 10 mg Carvedilol (Coreg) 6.25 mg PO BID [facility] Last Admin: 07/30/17 08:00 Dose: 6.25 mg Cholestyramine Resin (Cholestyramine Packet) 4 gm PO TID [facility] Last Admin: 07/30/17 08:01 Dose: 4 gm Docusate Sodium (Colace) 100 mg PO BID PRN PRN Reason: Constipation Last Admin: 07/28/17 20:56 Dose: 100 mg Enoxaparin Sodium (Lovenox) 100 mg SUBCUT DAILY [facility] Last Admin: 07/30/17 08:02 Dose: 100 mg Fenofibrate (Fenofibrate) 67 mg PO DAILY [facility] Last Admin: 07/30/17 08:01 Dose: 67 mg Hydrochlorothiazide (Hydrochlorothiazide) 25 mg PO DAILY [facility] Last Admin: 07/30/17 08:01 Dose: 25 mg Hydroxyzine HCl (Atarax) 25 mg PO TID PRN PRN Reason: Anxiety Last Admin: 07/29/17 20:50 Dose: 25 mg Losartan Potassium (Cozaar) 100 mg PO DAILY [facility] Last Admin: 07/30/17 08:01 Dose: 100 mg Magnesium Hydroxide (Milk Of Magnesia) 30 ml PO Q12H PRN PRN Reason: Constipation Magnesium Oxide (Magnesium Oxide) 400 mg PO BID [facility] Last Admin: 07/30/17 08:02 Dose: 400 mg Melatonin (Melatonin) 9 mg PO BEDTIME [facility] Last Admin: 07/29/17 20:51 Dose: 9 mg Mometasone Furoate/Formoterol Fumar (Dulera 200-5 Mcg) 2 puff IH BIDRT [facility] Last Admin: 07/30/17 08:05 Dose: 2 puff Ondansetron HCl (Zofran) 4 mg IV Q4H PRN PRN Reason: Nausea/Vomiting Last Admin: 07/28/17 22:39 Dose: 4 mg Oxycodone HCl (Oxycodone) 10 mg PO Q4H PRN PRN Reason: Pain (moderate 4-6) Last Admin: 07/30/17 12:33 Dose: 5 mg Pantoprazole Sodium (Protonix) 40 mg PO ACBREAKFAST [facility] Last Admin: 07/30/17 07:58 Dose: 40 mg Polyethylene Glycol (Miralax) 17 gm PO DAILY PRN PRN Reason: Constipation Last Admin: 07/29/17 09:23 Dose: 17 gm Ranitidine HCl (Zantac) 150 mg PO BEDTIME [facility] Last Admin: 07/29/17 20:55 Dose: 150 mg Sodium Chloride (Saline Flush) 10 ml FLUSH ASDIRECTED PRN PRN Reason: Keep Vein Open Sucralfate (Carafate) 1 gm PO QID [facility] Last Admin: 07/30/17 09:40 Dose: 1 gm Tiotropium [place] (Spiriva Handihaler) 18 mcg INH DAILY@0700 [facility] Last Admin: 07/30/17 08:05 Dose: 1 cap Warfarin Sodium (Coumadin) 2.5 mg PO ONETIME ONE Stop: 07/30/17 13:01 Last Admin: 07/30/17 12:34 Dose: 2.5 mg Discontinued Medications Aclidinium [place] (Tudorza Pressair) 400 mcg INH BIDRT [facility] Last Admin: 07/27/17 05:48 Dose: Not Given Heparin Sodium (Porcine) (Heparin Sodium) 4,000 units IVPUSH ONETIME ONE Stop: 07/25/17 18:35 Last Admin: 07/25/17 18:56 Dose: 4,000 units Sodium Chloride (Normal Saline) 1,000 mls @ 500 mls/hr IV ASDIRECTED [facility] Last Admin: 07/25/17 18:17 Dose: 500 mls/hr Sodium Chloride (Normal Saline) 75 mls @ 3 mls/sec IV ONETIME ONE Stop: 07/25/17 17:45 Last Admin: 07/25/17 18:09 Dose: 3 mls/sec Heparin Sodium/Dextrose (Heparin 25,000 Units In D5w 500 Ml) 25,000 units in 500 mls @ 0 mls/hr IV TITRATE KARLA; 18 UNITS/KG/HR PRN Reason: Protocol Last Titration: 07/27/17 02:21 Dose: 10 units/kg/hr, 12.8 mls/hr Magnesium Sulfate 2 gm/ Premix 50 mls @ 25 mls/hr IV Q6H [facility] Stop: 07/26/17 17:59 Last Admin: 07/26/17 16:50 Dose: 25 mls/hr Magnesium Sulfate 2 gm/ Premix 50 mls @ 25 mls/hr IV ONETIME ONE Stop: 07/27/17 11:59 Last Admin: 07/27/17 10:09 Dose: 25 mls/hr Phytonadione 1 mg/ Sodium (Chloride) 50.5 mls @ 100 mls/hr IV ONETIME ONE Stop: 07/28/17 06:31 Last Admin: 07/28/17 06:31 Dose: 100 mls/hr Influenza Virus Vaccine (Fluzone High-Dose ) 180 mcg IM .ONCE ONE Stop: 07/26/17 10:01 Last Admin: 07/26/17 11:20 Dose: Not Given Iopamidol (Isovue-300 (61%)) 100 ml IV . DIRECTED PRN PRN Reason: RADIOLOGY EXAM Last Admin: 07/25/17 18:09 Dose: 100 ml Mometasone Furoate/Formoterol Fumar (Dulera 200-5 Mcg) 0 puff IH BIDRT [facility] Last Admin: 07/25/17 20:42 Dose: 2 puff Oxycodone/Acetaminophen (Percocet 325-5 Mg) 1 tab PO ONETIME ONE Stop: 07/25/17 15:46 Last Admin: 07/25/17 16:18 Dose: 1 tab Potassium Chloride (Klor-Con M20) 40 meq PO ONETIME ONE Stop: 07/26/17 09:31 Last Admin: 07/26/17 10:03 Dose: 40 meq Potassium Chloride (Klor-Con M20) 40 meq PO ONETIME ONE Stop: 07/27/17 09:01 Last Admin: 07/27/17 10:06 Dose: 40 meq Sodium Chloride (Saline Flush) 10 ml FLUSH ASDIRECTED PRN PRN Reason: Keep Vein Open Last Admin: 07/25/17 18:18 Dose: 10 ml Warfarin Sodium (Coumadin) 7.5 mg PO ONETIME ONE Stop: 07/25/17 21:01 Last Admin: 07/25/17 21:19 Dose: 7.5 mg Warfarin Sodium (Coumadin) Confirm Administered Dose 2.5 mg .ROUTE .STK-MED ONE Stop: 07/25/17 21:18 Last Admin: 07/25/17 21:22 Dose: Not Given Warfarin Sodium (Coumadin) Confirm Administered Dose 5 mg .ROUTE .STK-MED ONE Stop: 07/25/17 21:18 Last Admin: 07/25/17 21:22 Dose: Not Given Warfarin Sodium (Coumadin) 2.5 mg PO ONETIME ONE Stop: 07/26/17 13:01 Last Admin: 07/26/17 13:07 Dose: 2.5 mg Warfarin Sodium (Coumadin) 2.5 mg PO ONETIME ONE Stop: 07/29/17 13:01 Last Admin: 07/29/17 13:06 Dose: 2.5 mg - Exam Quality Assessment: DVT Prophylaxis General: Alert, Oriented, Cooperative, No Acute Distress Lungs: Clear to Auscultation, Normal Respiratory Effort Cardiovascular: Regular Rate, Regular Rhythm, No Murmurs GI/Abdominal Exam: Normal Bowel Sounds, Soft, Non-Tender, No Distention Extremities: Non-Tender, No Pedal Edema Skin: Warm, Dry, Intact - Problem List Review Problem List Initiated/Reviewed/Updated: Yes - My Orders Last 24 Hours: My Active Orders 07/29/17 16:30 Oral Nutrition Supplement [COMM] QIDACANDBED 07/29/17 21:00 Oral Nutrition Supplement [COMM] QIDACANDBED 07/30/17 07:30 Oral Nutrition Supplement [COMM] QIDACANDBED 07/30/17 11:30 Oral Nutrition Supplement [COMM] QIDACANDBED 07/30/17 13:00 Warfarin [Coumadin] 2.5 mg PO ONETIME ONE 07/30/17 16:30 Oral Nutrition Supplement [COMM] QIDACANDBED 07/30/17 21:00 Oral Nutrition Supplement [COMM] QIDACANDBED 07/31/17 05:11 INR,PT,PROTHROMBIN TIME [COAG] AM 07/31/17 07:30 Oral Nutrition Supplement [COMM] QIDACANDBED 07/31/17 11:30 Oral Nutrition Supplement [COMM] QIDACANDBED 07/31/17 16:30 Oral Nutrition Supplement [COMM] QIDACANDBED 07/31/17 21:00 Oral Nutrition Supplement [COMM] QIDACANDBED - Plan Plan:: ASSESSMENT AND PLAN 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 Improved since admission, left-sided abdominal and chest pain have resolved. INR remains subtherapeutic. -Lovenox 100 mg subcutaneous daily -Warfarin 2.5 mg by mouth today -INR in a.m. RECENT PNEUMONIA-no evidence of infiltrate on CT scan today -Hold on antibiotic therapy RECENT [id number] abdominal pain likely related to pulmonary embolism and infarct. Mild elevation in lipase likely secondary to chronic pancreatitis. Question of underlying malignancy, biopsy was negative. Appetite seems to improve somewhat over the past few days. -Dietary consult -PT evaluation and treatment -Dietary supplement 4 times daily -Outpatient subspecialty follow-up in [place] COPD-no evidence of acute exacerbation -Continue outpatient medical therapy CORONARY ARTERY DISEASE-currently asymptomatic -Continue outpatient medical therapy MAINTENANCE ISSUES -DVT prophylaxis; current IV heparin should provide adequate DVT prophylaxis -GI prophylaxis; continue outpatient PPI therapy -Pineda catheter; not indicated -Nutrition; regular diet -Nicotine dependence; not required CODE STATUS-FULL CODE ADMISSION STATUS-patient will be admitted to inpatient status, expect at least a 2 night hospital stay for evaluation and management of problems as outlined above. At the time of this admission I do not reasonably expected evaluation and management of this problem will require more than a 96 hour hospital stay. DISPOSITION-anticipate discharge to home after the hospital stay. PRIMARY CARE- Dr. Naveen Pearce
[2017-07-30] MEDS: hydrOXYzine HCl 25 MG Tab PO PRN (17:28)
[2017-07-30] MEDS: Melatonin 3 MG Tab PO SCH (21:13)
[2017-07-30] MEDS: Aspirin 81 MG Tab.EC PO SCH (21:13)
[2017-07-30] MEDS: atorvaSTATin 10 MG Tab PO SCH (21:14)
[2017-07-31] MEDS: oxyCODONE 5 MG Tab PO PRN (00:02)
[2017-07-31] MEDS: Formoterol/Mometasone 200-5 MCG 8.8 GM Inhaler IH SCH (07:07)
[2017-07-31] MEDS: Albuterol/Ipratropium 3.0-0.5 MG/3 ML Neb Soln INH SCH ×2 (07:07→11:06)
[2017-07-31] MEDS: Tiotropium Inhaler 18 MCG Inhalation Powder Cap Kit of 5 INH SCH (07:13)
[2017-07-31] MEDS: Sucralfate 1 GM Tab PO SCH ×2 (07:40→11:35)
[2017-07-31] MEDS: Pantoprazole 40 MG Tab.CR PO SCH (07:41)
[2017-07-31] MEDS: Cholestyramine/Sucrose Powder 4 GM Packet PO SCH (08:26)
[2017-07-31] MEDS: Enoxaparin 100 MG/1 ML Syringe SUBCUT SCH (08:26)
[2017-07-31] MEDS: Hydrochlorothiazide 25 MG Tab PO SCH (08:27)
[2017-07-31] MEDS: Magnesium Oxide 400 MG Tab PO SCH (08:27)
[2017-07-31] MEDS: Carvedilol 6.25 MG Tab PO SCH (08:28)
[2017-07-31] MEDS: Fenofibrate,Micronized 67 MG Cap PO SCH (08:28)
[2017-07-31] MEDS: Losartan 50 MG Tab PO SCH (08:28)
--- NOTE | 2017-07-31 11:09 | PCM.DCSUM1 ---
Discharge Summary - Hospital Course Brief History: Mr. Mukherjee is a 76-year-old gentleman who developed abrupt onset of shortness of breath and pleuritic left chest pain on the morning of admission. On evaluation in emergency department was found to have a left pulmonary embolism with associated pulmonary infarct. - Discharge Data Discharge Date: 07/31/17 Discharge Disposition: Home, W Home Health Agency 06 Condition: Stable - Discharge Diagnosis/Problem(s) (1) Hypertension SNOMED Code(s): 61528369 ICD Code: I10 - ESSENTIAL (PRIMARY) HYPERTENSION Status: Acute Current Visit: No Qualifiers: Hypertension type: essential hypertension Qualified Code(s): I10 - Essential (primary) hypertension (2) Pulmonary embolism and infarction SNOMED Code(s): 7892136211675 ICD Code: I26.99 - OTHER PULMONARY EMBOLISM WITHOUT ACUTE COR PULMONALE Status: Acute Current Visit: Yes - Patient Summary/Data Consults: Consultations 07/26/17 12:52 Consult to Forming Machine Operator [CONS] Routine Comment: Physician Instructions: Quantity: Reason for Consult: Weight loss, poor oral intake Consult to Physical Therapy [PT Evaluation and Treatment] [CONS] Routine Please Evaluate and Treat. PT Reason for Consult: Strengthening This query below is only for informational purposes and is not editable. Admission Diagnosis/Problem: Pulmonary embolism Hospital Course: Mr. Mukherjee is had a recent history of pancreatitis requiring hospitalization in [place]. There was evidence of a pancreatic mass, on ERCP a stent was placed and the mass was biopsied, results of which were benign. Since discharge from the hospital he has not felt well and has continued to lose weight with poor appetite. Follow-up appointment tentatively planned for later in July for stent removal and reassessment of the mass. On the morning of admission he developed pleuritic chest as well as left upper quadrant abdominal pain associated with shortness of breath. On evaluation in the emergency department was found to have left lung pulmonary embolism with pulmonary infarct. He was admitted to the hospital and started on IV heparin as well as oral anticoagulation with warfarin. Venous Doppler studies were obtained of both lower extremities and there was a small amount of residual clot noted but no heavy clot burden identified. Initially was given 7.5 mg of warfarin, the following day his INR was up to 1.5 and he was given 2.5 mg of warfarin. INR increased to 4 and then 7.6. Warfarin was held both of those days and on the second day he was given 1 mg of IV vitamin K. Following this his INR level dropped to subtherapeutic range, prior to discharge she received 3 subsequent days of 2.5 mg daily and by the time of discharge his INR was 1.7. After 2 days of IV iron he was converted to once daily dosing of Lovenox at 100 mg subcutaneous daily. He will be discharged on the subcutaneous Lovenox until his INR is been therapeutic for 2 days. His appetite improved during his hospital stay and by the time of discharge was eating well and feeling stronger. He will plan to follow up with subspecialists in [place] later this month. Follow-up appointment will be scheduled with Dr. Naveen Pearce within the next week. He will be seen by home care after follow-up for assistance with Lovenox injections , INR will be obtained tomorrow by home care and called to Dr. Pearce. He will also receive home physical therapy as well as occupational therapy. Activity will be as tolerated and he will resume his usual diet. - Patient Instructions Diet: Regular Diet as Tolerated Activity: As Tolerated Other/Special Instructions: Schedule home care after discharge for restorative home physical therapy and occupational therapy. Patient's family will schedule follow-up appointment with gastroenterology in [place] for removal of stent and follow-up of pancreatic mass. Please schedule follow-up appointment with Dr. Naveen Pearce within one week. Have home care draw follow-up INR level tomorrow August 01. Results should be called to Dr. Pearce. - Discharge Plan Prescriptions/Med Rec: Enoxaparin [Lovenox] 100 mg SUBCUT DAILY #3 syringe hydrOXYzine HCl [hydrOXYzine] 25 mg PO TID PRN #30 tablet PRN Reason: Anxiety Warfarin [Coumadin] 2.5 mg PO DAILY #60 tablet Home Medications: Home Meds Acetaminophen [Tylenol] 325 mg PO Q6HR PRN 05/15/17 [History] Aclidinium [place] [Tudorza Pressair] 400 mcg INH BID 05/15/17 [History] Albuterol Sulfate [Proair Respiclick] 90 mcg IH ASDIRECTED PRN 05/15/17 [History ] Albuterol/Ipratropium [DuoNeb 3.0-0.5 MG/3 ML] 3 ml IH QID 05/15/17 [History] Aspirin [[place] Aspirin] 81 mg PO BEDTIME 05/15/17 [History] Budesonide/Formoterol [Symbicort 160-4.5 MCG] 2 puff INH BID 05/15/17 [History] Carvedilol 6.25 mg PO BID 05/15/17 [History] Cholestyramine/Sucrose [Cholestyramine] 4 gm PO TID 05/15/17 [History] Fenofibrate Nanocrystallized [Fenofibrate] 48 mg PO DAILY 05/15/17 [History] Pantoprazole [ProTONIX] 40 mg PO DAILY 05/15/17 [History] Ranitidine [Zantac] 150 mg PO BEDTIME 05/15/17 [History] Simethicone 80 mg PO ASDIRECTED 05/15/17 [History] Sucralfate 1 gm PO QID 05/15/17 [History] atorvaSTATin [Lipitor] 10 mg PO BEDTIME 05/15/17 [History] Losartan/Hydrochlorothiazide [Losartan-HCTZ 100-25 MG] 1 tab PO DAILY 07/25/17 [ History] oxyCODONE 1 tab PO Q6H PRN 07/25/17 [History] Enoxaparin [Lovenox] 100 mg SUBCUT DAILY #3 syringe 07/31/17 [Rx] Warfarin [Coumadin] 2.5 mg PO DAILY #60 tablet 07/31/17 [Rx] hydrOXYzine HCl [hydrOXYzine] 25 mg PO TID PRN #30 tablet 07/31/17 [Rx] Patient Handouts: Pulmonary Embolism, Acute Pancreatitis Forms: ED Department Discharge Referrals: PCP,None [Primary Care Provider] - - Patient Data Vitals - Most Recent: Last Vital Signs Temp 97.3 F 07/31/17 07:51 Pulse 72 07/31/17 08:28 Resp 16 07/31/17 07:51 BP 123/63 07/31/17 08:28 Pulse Ox 94 L 07/31/17 07:51 Weight - Most Recent: 141 lb 1.533 oz I&O - Last 24 hours: Intake & Output 07/30/17 07/31/17 07/31/17 22:59 06:59 14:59 Intake Total 120 400 Balance 120 400 Lab Results - Last 24 hrs: Laboratory Results - last 24 hr 07/31/17 Range/Units 05:11 PT 19.2 H (9.5-12.0) sec INR 1.75 H (0.80-1.20) Med Orders - Current: Current Medications Acetaminophen (Tylenol) 650 mg PO Q4H PRN PRN Reason: Pain (Mild 1-3)/fever Last Admin: 07/29/17 13:10 Dose: 650 mg Al Hydroxide/Mg Hydroxide (Mag-Al Plus) 30 ml PO Q4H PRN PRN Reason: Heartburn Last Admin: 07/28/17 19:55 Dose: 30 ml Albuterol (Proventil Neb Soln) 2.5 mg NEB Q4H PRN PRN Reason: Shortness Of Breath/wheezing Last Admin: 07/26/17 03:17 Dose: 2.5 mg Albuterol (Ventolin Hfa) 0 gm INH ASDIRECTED PRN PRN Reason: Wheezing Albuterol/Ipratropium (Duoneb 3.0-0.5 Mg/3 Ml) 3 ml INH QIDRT [facility] Last Admin: 07/31/17 07:07 Dose: 3 ml Aspirin (Halfprin) 81 mg PO BEDTIME [facility] Last Admin: 07/30/17 21:13 Dose: 81 mg Atorvastatin Calcium (Lipitor) 10 mg PO BEDTIME [facility] Last Admin: 07/30/17 21:14 Dose: 10 mg Carvedilol (Coreg) 6.25 mg PO BID [facility] Last Admin: 07/31/17 08:28 Dose: 6.25 mg Cholestyramine Resin (Cholestyramine Packet) 4 gm PO TID [facility] Last Admin: 07/31/17 08:26 Dose: 4 gm Docusate Sodium (Colace) 100 mg PO BID PRN PRN Reason: Constipation Last Admin: 07/28/17 20:56 Dose: 100 mg Enoxaparin Sodium (Lovenox) 100 mg SUBCUT DAILY [facility] Last Admin: 07/31/17 08:26 Dose: 100 mg Fenofibrate (Fenofibrate) 67 mg PO DAILY [facility] Last Admin: 07/31/17 08:28 Dose: 67 mg Hydrochlorothiazide (Hydrochlorothiazide) 25 mg PO DAILY [facility] Last Admin: 07/31/17 08:27 Dose: 25 mg Hydroxyzine HCl (Atarax) 25 mg PO TID PRN PRN Reason: Anxiety Last Admin: 07/30/17 17:28 Dose: 25 mg Losartan Potassium (Cozaar) 100 mg PO DAILY [facility] Last Admin: 07/31/17 08:28 Dose: 100 mg Magnesium Hydroxide (Milk Of Magnesia) 30 ml PO Q12H PRN PRN Reason: Constipation Magnesium Oxide (Magnesium Oxide) 400 mg PO BID [facility] Last Admin: 07/31/17 08:27 Dose: 400 mg Melatonin (Melatonin) 9 mg PO BEDTIME [facility] Last Admin: 07/30/17 21:13 Dose: 9 mg Mometasone Furoate/Formoterol Fumar (Dulera 200-5 Mcg) 2 puff IH BIDRT [facility] Last Admin: 07/31/17 07:07 Dose: 2 puff Ondansetron HCl (Zofran) 4 mg IV Q4H PRN PRN Reason: Nausea/Vomiting Last Admin: 07/28/17 22:39 Dose: 4 mg Oxycodone HCl (Oxycodone) 10 mg PO Q4H PRN PRN Reason: Pain (moderate 4-6) Last Admin: 07/31/17 00:02 Dose: 5 mg Pantoprazole Sodium (Protonix) 40 mg PO ACBREAKFAST [facility] Last Admin: 07/31/17 07:41 Dose: 40 mg Polyethylene Glycol (Miralax) 17 gm PO DAILY PRN PRN Reason: Constipation Last Admin: 07/29/17 09:23 Dose: 17 gm Ranitidine HCl (Zantac) 150 mg PO BEDTIME [facility] Last Admin: 07/30/17 21:13 Dose: 150 mg Sodium Chloride (Saline Flush) 10 ml FLUSH ASDIRECTED PRN PRN Reason: Keep Vein Open Sucralfate (Carafate) 1 gm PO QID [facility] Last Admin: 07/31/17 07:40 Dose: 1 gm Tiotropium [place] (Spiriva Handihaler) 18 mcg INH DAILY@0700 [facility] Last Admin: 07/31/17 07:13 Dose: 1 cap Warfarin Sodium (Coumadin) 2.5 mg PO ONETIME ONE Stop: 07/31/17 13:01 Discontinued Medications Aclidinium [place] (Tudorza Pressair) 400 mcg INH BIDRT [facility] Last Admin: 07/27/17 05:48 Dose: Not Given Heparin Sodium (Porcine) (Heparin Sodium) 4,000 units IVPUSH ONETIME ONE Stop: 07/25/17 18:35 Last Admin: 07/25/17 18:56 Dose: 4,000 units Sodium Chloride (Normal Saline) 1,000 mls @ 500 mls/hr IV ASDIRECTED KARLA Last Admin: 07/25/17 18:17 Dose: 500 mls/hr Sodium Chloride (Normal Saline) 75 mls @ 3 mls/sec IV ONETIME ONE Stop: 07/25/17 17:45 Last Admin: 07/25/17 18:09 Dose: 3 mls/sec Heparin Sodium/Dextrose (Heparin 25,000 Units In D5w 500 Ml) 25,000 units in 500 mls @ 0 mls/hr IV TITRATE KARLA; 18 UNITS/KG/HR PRN Reason: Protocol Last Titration: 07/27/17 02:21 Dose: 10 units/kg/hr, 12.8 mls/hr Magnesium Sulfate 2 gm/ Premix 50 mls @ 25 mls/hr IV Q6H KARLA Stop: 07/26/17 17:59 Last Admin: 07/26/17 16:50 Dose: 25 mls/hr Magnesium Sulfate 2 gm/ Premix 50 mls @ 25 mls/hr IV ONETIME ONE Stop: 07/27/17 11:59 Last Admin: 07/27/17 10:09 Dose: 25 mls/hr Phytonadione 1 mg/ Sodium (Chloride) 50.5 mls @ 100 mls/hr IV ONETIME ONE Stop: 07/28/17 06:31 Last Admin: 07/28/17 06:31 Dose: 100 mls/hr Influenza Virus Vaccine (Fluzone High-Dose ) 180 mcg IM .ONCE ONE Stop: 07/26/17 10:01 Last Admin: 07/26/17 11:20 Dose: Not Given Iopamidol (Isovue-300 (61%)) 100 ml IV . DIRECTED PRN PRN Reason: RADIOLOGY EXAM Last Admin: 07/25/17 18:09 Dose: 100 ml Mometasone Furoate/Formoterol Fumar (Dulera 200-5 Mcg) 0 puff IH BIDRT [facility] Last Admin: 07/25/17 20:42 Dose: 2 puff Oxycodone/Acetaminophen (Percocet 325-5 Mg) 1 tab PO ONETIME ONE Stop: 07/25/17 15:46 Last Admin: 07/25/17 16:18 Dose: 1 tab Potassium Chloride (Klor-Con M20) 40 meq PO ONETIME ONE Stop: 07/26/17 09:31 Last Admin: 07/26/17 10:03 Dose: 40 meq Potassium Chloride (Klor-Con M20) 40 meq PO ONETIME ONE Stop: 07/27/17 09:01 Last Admin: 07/27/17 10:06 Dose: 40 meq Sodium Chloride (Saline Flush) 10 ml FLUSH ASDIRECTED PRN PRN Reason: Keep Vein Open Last Admin: 07/25/17 18:18 Dose: 10 ml Warfarin Sodium (Coumadin) 7.5 mg PO ONETIME ONE Stop: 07/25/17 21:01 Last Admin: 07/25/17 21:19 Dose: 7.5 mg Warfarin Sodium (Coumadin) Confirm Administered Dose 2.5 mg .ROUTE .STK-MED ONE Stop: 07/25/17 21:18 Last Admin: 07/25/17 21:22 Dose: Not Given Warfarin Sodium (Coumadin) Confirm Administered Dose 5 mg .ROUTE .STK-MED ONE Stop: 07/25/17 21:18 Last Admin: 07/25/17 21:22 Dose: Not Given Warfarin Sodium (Coumadin) 2.5 mg PO ONETIME ONE Stop: 07/26/17 13:01 Last Admin: 07/26/17 13:07 Dose: 2.5 mg Warfarin Sodium (Coumadin) 2.5 mg PO ONETIME ONE Stop: 07/29/17 13:01 Last Admin: 07/29/17 13:06 Dose: 2.5 mg Warfarin Sodium (Coumadin) 2.5 mg PO ONETIME ONE Stop: 07/30/17 13:01 Last Admin: 07/30/17 12:34 Dose: 2.5 mg *Q Meaningful Use (DIS) - VTE *Q VTE Criteria *Q: VTE Pharmacological Contraindications *Q: High INR Value - Stroke *Q Stroke Criteria *Q: - AMI *Q AMI Criteria *Q:
[2017-07-31 11:30] VITALS: BP 151/64
[2017-07-31] MEDS ORDERED: Warfarin 2.5 MG Tab PO ONE (13:00)
== END 2017-07-31 11:50 | disposition home health service (06) | DRG 176 ==
LOC: JP.ED 14:11 → JP.MS 19:06
PROVIDERS: ADMIT Hospitalist; ATTEND Hospitalist
DX: I26.99 Other pulmonary embolism without acute cor pulmonale (principal); I82.412 Acute embolism and thrombosis of left femoral vein; Z23 Encounter for immunization; I25.10 Atherosclerotic heart disease of native coronary artery without angina pectoris; J44.9 Chronic obstructive pulmonary disease, unspecified; R06.02 Shortness of breath; R07.89 Other chest pain; I10 Essential (primary) hypertension; Z87.891 Personal history of nicotine dependence; I25.2 Old myocardial infarction; Z95.5 Presence of coronary angioplasty implant and graft; K21.9 Gastro-esophageal reflux disease without esophagitis; M19.90 Unspecified osteoarthritis, unspecified site; Z95.1 Presence of aortocoronary bypass graft; Z85.46 Personal history of malignant neoplasm of prostate; Z90.79 Acquired absence of other genital organ(s); Z96.659 Presence of unspecified artificial knee joint; Z79.82 Long term (current) use of aspirin; Z79.01 Long term (current) use of anticoagulants; Z87.01 Personal history of pneumonia (recurrent); Z86.79 Personal history of other diseases of the circulatory system
CPT/HCPCS: 36415; 71020 ×2; 71260; 80053; 81001; 83605; 83690; 84484; 85025; 93005; 93010; 96361; 99285; A9270; J1644 ×2; J7030; J7040; J7050; Q9967; 80048; 83735; 85610; 85730; 93970; 93970-26; 94640; 94640-76; 96360; 96365; 96375; 97162-GP; 97530-GP; 99284; J1650; J2405; J3430; J3475; J7620

== ENCOUNTER 2017-12-24 15:57 | Emergency (ER) | payer MEDICARE ==
[2017-12-24 16:12] VITALS: BP 187/77
--- NOTE | 2017-12-24 17:20 | EDM.PDOC ---
ED HPI GENERAL MEDICAL PROBLEM - General Chief Complaint: Skin Complaint Stated Complaint: SPIDER VEINS Time Seen by Provider: 12/24/17 16:15 Source of Information: Reports: Patient, Family History Limitations: Reports: No Limitations - History of Present Illness INITIAL COMMENTS - FREE TEXT/NARRATIVE: pt is on coumadin because of a blood clot in his lung. He developed some spider veins in his upper chest and the family was concerned because of the coumadin therapy. Onset: Today Duration: Hour(s): Location: Reports: Chest Associated Symptoms: Reports: Other (pt had a heating pad on his chest and he developed very visable spider veins on the chest. He has a past history of a pancreatitis. ) - Related Data Allergies Allergy/AdvReac Type Severity Reaction Status Date / Time No Known Allergies Allergy Verified 07/25/17 17:50 Home Meds: Home Meds Acetaminophen [Tylenol] 325 mg PO Q6HR PRN 05/15/17 [History] Aclidinium [place] [Tudorza Pressair] 400 mcg INH BID 05/15/17 [History] Albuterol Sulfate [Proair Respiclick] 90 mcg IH ASDIRECTED PRN 05/15/17 [History ] Albuterol/Ipratropium [DuoNeb 3.0-0.5 MG/3 ML] 3 ml IH QID 05/15/17 [History] Aspirin [[place]odd Aspirin] 81 mg PO BEDTIME 05/15/17 [History] Budesonide/Formoterol [Symbicort 160-4.5 MCG] 2 puff INH BID 05/15/17 [History] Carvedilol 6.25 mg PO BID 05/15/17 [History] Cholestyramine/Sucrose [Cholestyramine] 4 gm PO TID 05/15/17 [History] Pantoprazole [ProTONIX] 40 mg PO DAILY 05/15/17 [History] Ranitidine [Zantac] 150 mg PO BEDTIME 05/15/17 [History] Simethicone 80 mg PO ASDIRECTED 05/15/17 [History] Sucralfate 1 gm PO QID 05/15/17 [History] atorvaSTATin [Lipitor] 10 mg PO BEDTIME 05/15/17 [History] Losartan/Hydrochlorothiazide [Losartan-HCTZ 100-25 MG] 1 tab PO DAILY 07/25/17 [ History] oxyCODONE 1 tab PO Q6H PRN 07/25/17 [History] Warfarin [Coumadin] 2.5 mg PO DAILY #60 tablet 07/31/17 [Rx] hydrOXYzine HCl [hydrOXYzine] 25 mg PO TID PRN #30 tablet 07/31/17 [Rx] Melatonin/Pyridoxine HCl (B6) [Melatonin 10 mg Tablet] 1 tab PO BEDTIME [History] Past Medical History Cardiovascular History: Reports: Afib, Bypass, CAD, Hypertension, [place], SOB on Exertion, Stents Respiratory History: Reports: COPD Gastrointestinal History: Reports: Cholelithiasis, GERD Musculoskeletal History: Reports: Arthritis Oncologic (Cancer) History: Reports: Prostate - Infectious Disease History Infectious Disease History: Reports: C-Difficile, Measles, Mumps, Shingles - Past Surgical History Cardiovascular Surgical History: Reports: Coronary Artery Bypass, Coronary Artery Stent, Percutaneous Transluminal Angioplasty, Other (See Below) Other Cardiovascular Surgeries/Procedures: stents in both legs GI Surgical History: Reports: Appendectomy, Cholecystectomy, Hernia Repair/Other Male Surgical History: Reports: Prostatectomy Musculoskeletal Surgical History: Reports: Knee Replacement Social & Family History - Family History Family Medical History: Noncontributory - Tobacco Use Smoking Status *Q: Never Smoker Years of Tobacco use: 40 Packs/Tins Daily: 1 Used Tobacco, but Quit: Yes Month Tobacco Last Used: 12/10 Second Hand Smoke Exposure: Yes - Caffeine Use Caffeine Use: Reports: None - Recreational Drug Use Recreational Drug Use: No ED ROS GENERAL - Review of Systems Review Of Systems: See Below Constitutional: Reports: No Symptoms HEENT: Reports: No Symptoms Respiratory: Reports: No Symptoms Endocrine: Reports: No Symptoms GI/Abdominal: Reports: No Symptoms : Reports: No Symptoms Musculoskeletal: Reports: No Symptoms Skin: Reports: No Symptoms ED EXAM, SKIN/RASH Exam: See Below Text/Narrative:: pt has spider veins on his chest which were more prominent because of heat on the chest. was very concerned because he is on coumadin. Exam Limited By: No Limitations General Appearance: Alert, No Apparent Distress Ears: Normal TMs Nose: Normal Inspection Throat/Mouth: Normal Inspection Head: Atraumatic Neck: Normal Inspection Respiratory/Chest: Other (he does have numerous spider veins on his chest which are small and do not look worrisome. ) Cardiovascular: Regular Rate, Rhythm GI/Abdominal: Soft, Non-Tender (Male) Exam: Deferred Rectal (Males) Exam: Deferred Back Exam: Normal Inspection Course - Vital Signs Last Recorded V/S: Last Vital Signs Temp 36.8 C 12/24/17 16:33 Pulse 78 12/24/17 16:33 Resp 20 12/24/17 16:33 BP 187/77 H 12/24/17 16:33 Pulse Ox 96 12/24/17 16:33 - Orders/Labs/Meds Labs: Laboratory Tests 12/24/17 12/24/17 12/24/17 Range/Units 16:36 16:36 16:36 WBC 5.9 (4.5-11.0) K/uL RBC 3.60 L (4.30-5.90) M/uL Hgb 10.0 L (12.0-15.0) g/dL Hct 31.0 L (40.0-54.0) % MCV 86 (80-98) fL MCH 28 (27-31) pg MCHC 32 (32-36) % Plt Count 237 (150-400) K/uL Neut % (Auto) 43 (36-66) % Lymph % (Auto) 37 (24-44) % [place] % (Auto) 14 H (2-6) % Eos % (Auto) 6 H (2-4) % Baso % (Auto) 0 (0-1) % PT 19.2 H (9.5-12.0) sec INR 1.75 H (0.80-1.20) Sodium 141 (140-148) mmol/L Potassium 4.1 (3.6-5.2) mmol/L Chloride 103 (100-108) mmol/L Carbon Dioxide 30 (21-32) mmol/L Anion Gap 8.3 (5.0-14.0) mmol/L BUN 20 H D (7-18) mg/dL Creatinine 1.5 H D (0.8-1.3) mg/dL Est Cr Clr Drug Dosing 42.55 mL/min Estimated GFR (MDRD) 46 L (>60) Glucose 101 (74-106) mg/dL Calcium 7.5 L (8.5-10.1) mg/dL Total Bilirubin 0.3 (0.2-1.0) mg/dL AST 27 D (15-37) U/L ALT 22 D (12-78) U/L Alkaline Phosphatase 71 (46-116) U/L Total Protein 6.3 L (6.4-8.2) g/dL Albumin 3.4 (3.4-5.0) g/dL Globulin 2.9 (2.3-3.5) g/dL Albumin/Globulin Ratio 1.2 (1.2-2.2) - Re-Assessments/Exams Free Text/Narrative Re-Assessment/Exam: 12/24/17 17:34 pt has an inr of 1.95. Hehas normal labs otherwise. He has a normal platlet count Departure - Departure Time of Disposition: 17:19 Disposition: Home, Self-Care 01 Condition: Fair Clinical Impression: Spider veins - Discharge Information Referrals: Ankur Pearce Sr, MD [Primary Care Provider] - Forms: ED Department Discharge Care Plan Goals: coumadin therapy is fine, cont same dosage, rtc if anything should change.
== END 2017-12-24 17:32 | disposition home or self-care (01) ==
LOC: JP.ED 15:57
DX: I86.8 Varicose veins of other specified sites (principal); I10 Essential (primary) hypertension; Z79.899 Other long term (current) drug therapy; Z79.01 Long term (current) use of anticoagulants; Z87.891 Personal history of nicotine dependence
CPT/HCPCS: 36415; 80053; 85025; 85610; 99285

== ENCOUNTER 2018-01-08 17:55 | Observation (INO) | payer MEDICARE, OTHER ==
[2018-01-08] MEDS ORDERED: HYDROmorphone 0.5 MG/0.5 ML Syringe IVPUSH ONE (20:22)
--- NOTE | 2018-01-08 20:24 | EDM.PDOC ---
ED HPI GENERAL MEDICAL PROBLEM - General Chief Complaint: Abdominal Pain Stated Complaint: SOB/HIGH BP Time Seen by Provider: 01/08/18 20:22 Source of Information: Reports: Patient History Limitations: Reports: No Limitations - History of Present Illness INITIAL COMMENTS - FREE TEXT/NARRATIVE: pt arrived with upper abdomanal pain and pain around the umbilius. He has not vomited but he has been doing alot of belching. He feels very full in the upper abdoman. He has been sob and having difficulty lying flat at nite. He uses 2 liters of o2 at nite and this was not real helpful last nite. His notes that he has had more ankle swelling. He has not had chest pain but has been very uncomfortable in the upper abdoman. Onset: Gradual, Other (last 2 days. ) Duration: Hour(s): Location: Reports: Chest Severity: Moderate Worsens with: Reports: Breathing Associated Symptoms: Reports: No Other Symptoms abd Pain Score (Numeric/FACES): 6 - Related Data Allergies Allergy/AdvReac Type Severity Reaction Status Date / Time No Known Allergies Allergy Verified 01/08/18 20:00 Home Meds: Home Meds Acetaminophen [Tylenol] 650 mg PO Q6HR PRN 05/15/17 [History] Aclidinium [place] [Tudorza Pressair] 1 puff INH BID 05/15/17 [History] Albuterol Sulfate [Proair Respiclick] 1 puff IH ASDIRECTED PRN 05/15/17 [History ] Albuterol/Ipratropium [DuoNeb 3.0-0.5 MG/3 ML] 3 ml IH QID PRN 05/15/17 [History ] Aspirin [[place] Aspirin] 81 mg PO BEDTIME 05/15/17 [History] Budesonide/Formoterol [Symbicort 160-4.5 MCG] 2 puff INH BID 05/15/17 [History] Carvedilol 6.25 mg PO BID 05/15/17 [History] Cholestyramine/Sucrose [Cholestyramine] 4 gm PO TID 05/15/17 [History] Pantoprazole [ProTONIX] 40 mg PO DAILY 05/15/17 [History] Ranitidine [Zantac] 300 mg PO BEDTIME 05/15/17 [History] Simethicone 80 mg PO ASDIRECTED PRN 05/15/17 [History] Sucralfate 1 gm PO QID 05/15/17 [History] atorvaSTATin [Lipitor] 10 mg PO BEDTIME 05/15/17 [History] Losartan/Hydrochlorothiazide [Losartan-HCTZ 100-25 MG] 1 tab PO DAILY 07/25/17 [ History] oxyCODONE 1 tab PO Q6H PRN 07/25/17 [History] Warfarin [Coumadin] 2.5 mg PO DAILY #60 tablet 07/31/17 [Rx] hydrOXYzine HCl [hydrOXYzine] 25 mg PO TID PRN #30 tablet 07/31/17 [Rx] Melatonin/Pyridoxine HCl (B6) [Melatonin 10 mg Tablet] 1 tab PO BEDTIME [History] Polyethylene Glycol 3350 [MiraLAX] 17 gm PO BID 01/08/18 [History] busPIRone [Buspar] 7.5 mg PO BID 01/08/18 [History] Past Medical History Cardiovascular History: Reports: Afib, Bypass, CAD, Hypertension, NE, SOB on Exertion, Stents Respiratory History: Reports: COPD Gastrointestinal History: Reports: Cholelithiasis, GERD, PUD Genitourinary History: Reports: Prostate Disorder Musculoskeletal History: Reports: Arthritis Psychiatric History: Reports: Anxiety Oncologic (Cancer) History: Reports: Prostate - Infectious Disease History Infectious Disease History: Reports: C-Difficile, Measles, Mumps, Shingles - Past Surgical History Cardiovascular Surgical History: Reports: Coronary Artery Bypass, Coronary Artery Stent, Percutaneous Transluminal Angioplasty, Other (See Below) Other Cardiovascular Surgeries/Procedures: stents in both legs GI Surgical History: Reports: Appendectomy, Cholecystectomy, Colonoscopy, Hernia Repair/Other Male Surgical History: Reports: Prostatectomy Musculoskeletal Surgical History: Reports: Knee Replacement Social & Family History - Family History Family Medical History: Noncontributory - Tobacco Use Smoking Status *Q: Former Smoker Years of Tobacco use: 40 Packs/Tins Daily: 1 Used Tobacco, but Quit: Yes Month/Year Tobacco Last Used: 02/2017 Second Hand Smoke Exposure: Yes - Caffeine Use Caffeine Use: Reports: None - Recreational Drug Use Recreational Drug Use: No ED ROS GENERAL - Review of Systems Review Of Systems: See Below Constitutional: Reports: No Symptoms HEENT: Reports: No Symptoms Respiratory: Reports: Shortness of Breath, Wheezing, Cough Cardiovascular: Reports: No Symptoms Endocrine: Reports: No Symptoms GI/Abdominal: Reports: Abdominal Pain, Other (pt had upper abdomanal pain. ) : Reports: No Symptoms Musculoskeletal: Reports: No Symptoms Skin: Reports: No Symptoms Neurological: Reports: No Symptoms ED EXAM, GI/ABD - Physical Exam Exam: See Below Text/Narrative:: pt was uncomfortable in the upper abdoman. He has been very sob and not able to lie fllat. Exam Limited By: No Limitations General Appearance: Alert, Anxious Eyes: Bilateral: Normal Appearance, EOMI Ears: Normal TMs Nose: Normal Inspection Throat/Mouth: Normal Inspection Head: Atraumatic Neck: Normal Inspection Respiratory/Chest: Decreased Breath Sounds, Crackles Cardiovascular: Regular Rate, Rhythm GI/Abdominal Exam: Non-Tender, Other (pt was distended in the upper abdoman and was tender in the rt upper abdoman and around the umbilius. ) (Male) Exam: Deferred Rectal (Males) Exam: Deferred Back Exam: Normal Inspection Extremities: Pedal Edema, Other (pt has plus 3 pitting ) Neurological: Alert, Oriented, Normal Cognition Psychiatric: Normal Affect Course - Vital Signs Last Recorded V/S: Last Vital Signs Temp 36.2 C 01/08/18 19:57 Pulse 72 01/08/18 23:15 Resp 16 01/08/18 23:15 BP 149/82 H 01/08/18 23:15 Pulse Ox 97 01/08/18 23:15 - Orders/Labs/Meds Orders: Active Orders 24 hr Category Date Time Status Pineda Catheter Insertion [Insert Urinary Catheter] [OM. Care 01/08/18 22:30 Ordered PC] Q24H Urinary Catheter Assessment [RC] ASDIRECTED Care 01/08/18 22:28 Active Abdomen Pelvis w Cont [CT] Stat Exams 01/08/18 21:26 Taken Abdomen Series w Chest 1V [CR] Stat Exams 01/08/18 20:20 Taken VL Duplex Lwr Ext Veins Comp [US] Stat Exams 01/08/18 21:32 Taken Sodium Chloride 0.9% [Normal Saline] 1,000 ml Med 01/08/18 20:30 Active IV ASDIRECTED Sodium Chloride 0.9% [Normal Saline] 100 ml Med 01/08/18 21:45 Active IV ASDIRECTED Medication Orders Sodium Chloride (Normal Saline) 1,000 mls @ 250 mls/hr IV ASDIRECTED KARLA Last Admin: 01/08/18 20:56 Dose: 250 mls/hr Sodium Chloride (Normal Saline) 100 mls @ 3 mls/sec IV ASDIRECTED KARLA Last Admin: 01/08/18 22:45 Dose: 3 mls/sec Labs: Laboratory Tests 01/08/18 01/08/18 01/08/18 Range/Units 20:07 20:20 20:20 WBC 8.6 (4.5-11.0) K/uL RBC 3.76 L (4.30-5.90) M/uL Hgb 10.5 L (12.0-15.0) g/dL Hct 32.0 L (40.0-54.0) % MCV 85 (80-98) fL MCH 28 (27-31) pg MCHC 33 (32-36) % Plt Count 251 (150-400) K/uL Neut % (Auto) 62 (36-66) % Lymph % (Auto) 24 (24-44) % [place] % (Auto) 9 H (2-6) % Eos % (Auto) 5 H (2-4) % Baso % (Auto) 0 (0-1) % PT (9.5-12.0) sec INR (0.80-1.20) Sodium 139 L (140-148) mmol/L Potassium 4.2 (3.6-5.2) mmol/L Chloride 99 L (100-108) mmol/L Carbon Dioxide 29 (21-32) mmol/L Anion Gap 15.2 H (5.0-14.0) mmol/L BUN 18 (7-18) mg/dL Creatinine 1.2 (0.8-1.3) mg/dL Est Cr Clr Drug Dosing 51.46 mL/min Estimated GFR (MDRD) 59 L (>60) Glucose 97 (74-106) mg/dL Calcium 8.3 L (8.5-10.1) mg/dL Total Bilirubin 0.6 D (0.2-1.0) mg/dL AST 27 (15-37) U/L ALT 23 (12-78) U/L Alkaline Phosphatase 79 (46-116) U/L C-Reactive Protein (0.0-0.3) mg/dL NT-Pro-B Natriuret Pep 3148 H (5-450) pg/mL Total Protein 7.1 (6.4-8.2) g/dL Albumin 3.8 (3.4-5.0) g/dL Globulin 3.3 (2.3-3.5) g/dL Albumin/Globulin Ratio 1.2 (1.2-2.2) Lipase (73-393) U/L Urine Color Yellow Urine Appearance Clear Urine pH 8.0 (4.5-8.0) Ur Specific [place] 1.015 (1.008-1.030) Urine Protein Negative (NEGATIVE) mg/dL Urine Glucose (UA) Normal (NEGATIVE) mg/dL Urine Ketones Negative (NEGATIVE) mg/dL Urine Occult Blood Negative (NEGATIVE) Urine Nitrite Negative (NEGAITVE) Urine Bilirubin Negative (NEGATIVE) Urine Urobilinogen Normal (NORMAL) mg/dL Ur Leukocyte Esterase Negative (NEGATIVE) Urine RBC 0-5 (0-5) Urine WBC 0-5 (0-5) Ur Epithelial Cells Rare Amorphous Sediment Not seen Urine Bacteria Few Urine Mucus Not seen 01/08/18 01/08/18 01/08/18 Range/Units 20:20 20:20 22:16 WBC (4.5-11.0) K/uL RBC (4.30-5.90) M/uL Hgb (12.0-15.0) g/dL Hct (40.0-54.0) % MCV (80-98) fL MCH (27-31) pg MCHC (32-36) % Plt Count (150-400) K/uL Neut % (Auto) (36-66) % Lymph % (Auto) (24-44) % [place] % (Auto) (2-6) % Eos % (Auto) (2-4) % Baso % (Auto) (0-1) % PT 25.4 H (9.5-12.0) sec INR 2.29 H (0.80-1.20) Sodium (140-148) mmol/L Potassium (3.6-5.2) mmol/L Chloride (100-108) mmol/L Carbon Dioxide (21-32) mmol/L Anion Gap (5.0-14.0) mmol/L BUN (7-18) mg/dL Creatinine (0.8-1.3) mg/dL Est Cr Clr Drug Dosing mL/min Estimated GFR (MDRD) (>60) Glucose (74-106) mg/dL Calcium (8.5-10.1) mg/dL Total Bilirubin (0.2-1.0) mg/dL AST (15-37) U/L ALT (12-78) U/L Alkaline Phosphatase (46-116) U/L C-Reactive Protein 0.10 (0.0-0.3) mg/dL NT-Pro-B Natriuret Pep (5-450) pg/mL Total Protein (6.4-8.2) g/dL Albumin (3.4-5.0) g/dL Globulin (2.3-3.5) g/dL Albumin/Globulin Ratio (1.2-2.2) Lipase 72 L (73-393) U/L Urine Color Urine Appearance Urine pH (4.5-8.0) Ur Specific [place] (1.008-1.030) Urine Protein (NEGATIVE) mg/dL Urine Glucose (UA) (NEGATIVE) mg/dL Urine Ketones (NEGATIVE) mg/dL Urine Occult Blood (NEGATIVE) Urine Nitrite (NEGAITVE) Urine Bilirubin (NEGATIVE) Urine Urobilinogen (NORMAL) mg/dL Ur Leukocyte Esterase (NEGATIVE) Urine RBC (0-5) Urine WBC (0-5) Ur Epithelial Cells Amorphous Sediment Urine Bacteria Urine Mucus Meds: Medications Generic Name Dose Route Start Last Admin Trade Name Freq PRN Reason Stop Dose Admin Sodium Chloride 1,000 mls @ 250 mls/hr 01/08/18 20:30 01/08/18 20:56 Normal Saline IV 250 mls/hr ASDIRECTED KARLA Administration Sodium Chloride 100 mls @ 3 mls/sec 01/08/18 21:45 01/08/18 22:45 Normal Saline IV 3 mls/sec ASDIRECTED KARLA Administration Discontinued Medications Generic Name Dose Route Start Last Admin Trade Name Freq PRN Reason Stop Dose Admin Furosemide 60 mg 01/08/18 21:33 01/08/18 21:52 Lasix IVPUSH 01/08/18 21:34 60 mg ONETIME ONE Administration Hydromorphone HCl 0.5 mg 01/08/18 20:22 01/08/18 20:57 Dilaudid IVPUSH 01/08/18 20:23 0.5 mg ONETIME ONE Administration Iopamidol 150 ml 01/08/18 21:45 01/08/18 22:45 Isovue-300 (61%) IV 150 ml . DIRECTED KARLA Administration - Re-Assessments/Exams Free Text/Narrative Re-Assessment/Exam: 01/08/18 23:45 us of both legs were neg. His cat scan of the abdoman showed no acute findings. His bunp was high. He was given lasix 60mg and at this point he has put out 1000 cc of fluid. He is feeling much better. Departure - Departure Time of Disposition: 23:35 Disposition: Home, Self-Care 01 Condition: Fair Clinical Impression: CHF (congestive heart failure), History of pulmonary embolism - Discharge Information Referrals: PCP,None [Primary Care Provider] - Forms: ED Department Discharge Care Plan Goals: admit to Dr Montoya. - My Orders Last 24 Hours: My Active Orders 01/08/18 20:20 Abdomen Series w Chest 1V [CR] Stat 01/08/18 20:30 Sodium Chloride 0.9% [Normal Saline] 1,000 ml IV ASDIRECTED 01/08/18 21:26 Abdomen Pelvis w Cont [CT] Stat 01/08/18 21:32 VL Duplex Lwr Ext Veins Comp [US] Stat 01/08/18 21:45 Sodium Chloride 0.9% [Normal Saline] 100 ml IV ASDIRECTED 01/08/18 22:28 Urinary Catheter Assessment [RC] ASDIRECTED 01/08/18 22:30 Pineda Catheter Insertion [Insert Urinary Catheter] [OM.PC] Q24H - Assessment/Plan Last 24 Hours: My Active Orders 01/08/18 20:20 Abdomen Series w Chest 1V [CR] Stat 01/08/18 20:30 Sodium Chloride 0.9% [Normal Saline] 1,000 ml IV ASDIRECTED 01/08/18 21:26 Abdomen Pelvis w Cont [CT] Stat 01/08/18 21:32 VL Duplex Lwr Ext Veins Comp [US] Stat 01/08/18 21:45 Sodium Chloride 0.9% [Normal Saline] 100 ml IV ASDIRECTED 01/08/18 22:28 Urinary Catheter Assessment [RC] ASDIRECTED 01/08/18 22:30 Pineda Catheter Insertion [Insert Urinary Catheter] [OM.PC] Q24H
[2018-01-08] MEDS ORDERED: Sodium Chloride 0.9% 1,000 ML IV SCH (20:30)
[2018-01-08] MEDS ORDERED: Furosemide 40 MG/4 ML VIAL IVPUSH ONE (21:33)
[2018-01-08] MEDS ORDERED: Sodium Chloride 0.9% 100 ML IV SCH (21:45)
[2018-01-08] MEDS ORDERED: Iopamidol 612 MG/ML 150 ML Bottle IV SCH (21:45)
[2018-01-08] MEDS ORDERED: Pantoprazole 40 MG Vial IVPUSH ONE (23:37)
[2018-01-08] MEDS ORDERED: Alum Hydrox/Mag Hydrox/Simeth 15 ML, Lidocaine 2% 15 ML PO ONE ×2 (23:40)
[2018-01-08] MEDS ORDERED: Sodium Chloride 0.9% 10 ML Syringe FLUSH PRN (23:54)
[2018-01-08] MEDS ORDERED: SIMETHICONE 80 MG PO PRN (23:57)
[2018-01-08] MEDS ORDERED: Acetaminophen 325 MG Tab PO PRN (23:57)
[2018-01-08] MEDS ORDERED: Non-Formulary Medication 1 Each (Albuterol Sulfate [Proair Respiclick] 1 PUFF) IH PRN (23:57)
[2018-01-08] MEDS ORDERED: HYDROXYZINE HCL 25 MG PO PRN (23:57)
[2018-01-09] MEDS: oxyCODONE 5 MG Tab PO PRN ×4 (00:54→19:28)
--- NOTE | 2018-01-09 01:19 | HP ---
CHIEF COMPLAINT: Abdominal pain and bloating with shortness of breath. HISTORY OF PRESENT ILLNESS: A 77-year-old with history of bypass surgery number of years ago. Otherwise, he has had no recent heart problems, had a negative angiogram of his heart within the last year and ended up having a couple stents placed in his legs. He states that he has had significant shortness of breath with orthopnea, get up and move around and belch and will feel better. He does use 2 L per nasal cannula at night, became more short of breath, abdominal bloating with orthopnea. He was brought into the emergency room for further evaluation. Evaluation of his abdomen was negative, but was noted to have elevated BNP. It was felt that he was fluid overloaded, was given IV Lasix 60 mg in the emergency room and was diuresing and did start feeling better. PAST MEDICAL HISTORY: 1. Coronary artery disease with 3-vessel bypass in the past. 2. Pulmonary embolism on chronic anticoagulation. 3. Gastroesophageal reflux disease. 4. Chronic neck pain with degenerative disk disease and spurs, on chronic opioids. 5. COPD. 6. Cholelithiasis status post cholecystectomy. 7. Prostate cancer status post prostatectomy. 8. Essential hypertension. 9. history of atrial fibrillation. 10.Appendectomy. 11.Knee replacement. MEDICATIONS: 1. Acetaminophen p.r.n. 2. Oxycodone 1 every 6 hours p.r.n. 3. Pantoprazole 40 mg daily. 4. Aclidinium bromide inhaler b.i.d. 5. Albuterol inhaler p.r.n. 6. DuoNeb q.i.d. p.r.n. 7. Aspirin 81 mg daily. 8. Atorvastatin 10 mg daily. 9. Budesonide formoterol inhaler 2 puffs b.i.d. 10.BuSpar 7.5 mg b.i.d. 11.Carvedilol 6.25 mg b.i.d. 12.Cholestyramine 4 g t.i.d. 13.Hydroxyzine 25 mg t.i.d. 14.Losartan/hydrochlorothiazide 100/25 daily. 15.Melatonin 10 mg at bedtime. 16.MiraLax b.i.d. 17.Ranitidine 300 mg at bedtime. 18.Simethicone 80 mg as directed. 19.Carafate 1 g q.i.d. 20.Warfarin. ALLERGIES: NO KNOWN DRUG ALLERGIES. SOCIAL HISTORY: Previous smoker. FAMILY HISTORY: Noncontributory. REVIEW OF SYSTEMS: HEENT: Denies headaches, vision changes, or upper respiratory symptoms. HEART: No chest pain. LUNGS: Does have shortness of breath with orthopnea. ABDOMEN: Abdominal pain and bloating. Denies any bowel or bladder trouble. EXTREMITIES: He has had problems with swelling in his legs, left side worse than right. He states chronically. PHYSICAL EXAMINATION: VITAL SIGNS: Weight 84.5 kg, temperature 36.2, pulse 75, blood pressure initially was 149/82 most recent 208/90, respirations 18, O2 saturation 96% on room air. GENERAL: The patient is alert and oriented x3. HEENT: Pharynx is clear. NECK: Supple. No adenopathy, thyromegaly, JVD or carotid bruits. HEART: Heart sounds regular. Did not hear any murmurs. LUNGS: He does have crackles in the bases. ABDOMEN: Bloated, slightly distended, and slight diffuse discomfort. No mass or organomegaly palpated. EXTREMITIES: He does have edema bilaterally, left side worse than right. SKIN: Negative. DIAGNOSTIC STUDIES: Ultrasound of his legs negative for DVT. CT scan of the abdomen, small fat containing umbilical hernia status post cholecystectomy. Intra and extrahepatic biliary duct dilation, most likely related to reservoir effect and dilated pancreatic duct, appendectomy and prostatectomy. Chest x-ray shows fluid in his lungs. Laboratory: White count 8.6, hemoglobin 10.5, platelet 251,000. INR 2.29. Sodium 139, potassium 4.2, BUN 18, creatinine 1.2. Liver functions were normal. BNP was 3148. Urinalysis unremarkable. ASSESSMENT AND PLAN: 1. Fluid overload, possible congestive heart failure. We will admit him under observation, anticipate less than 2 midnight stays. The patient has received 60 mg IV Lasix and has been diuresing well. ER staff to place Pineda catheter. Transfers care to the hospitalist service in the morning. 2. Coronary artery disease, previous bypass surgery. Apparently had an angiogram which according to the patient was normal within the last year. Does have peripheral arterial disease and did have a couple stents placed. 3. Chronic obstructive pulmonary disease. 4. History of prostate cancer. 5. Cholecystectomy with history of pancreatitis last year. Continue with his oxygen at bedtime. Gerber Montoya MD /[id number]
--- NOTE | 2018-01-09 08:51 | US ---
VL Duplex Lwr Ext Veins Comp FINDINGS: The common femoral through the popliteal veins were assessed with duplex imaging bilaterall y. The veins demonstrate complete compressibility. There is no evidence of intraluminal thrombus. The re is normal phasic variation of the waveform with respirations. There is augmented flow with calf co mpression. IMPRESSION: Normal bilateral lower extremity venous Doppler ultrasound.
--- NOTE | 2018-01-09 08:53 | CR ---
Acute abdomen series The heart and vascular structures are within normal limits. There are no infiltrates or effusions. Th e patient has had a prior CABG procedure. There is a gaseous appearance throughout the abdomen. There is air demonstrated within the distal col on. There is no significant stool retention. There is no bowel distention. There are no pathologic ai r-fluid levels. There is no free air. Impression: 1. No acute findings are demonstrated.
[2018-01-09] MEDS: PANTOPRAZOLE 40 MG PO SCH (08:56)
[2018-01-09] MEDS ORDERED: SUCROSE PO SCH (09:00)
[2018-01-09] MEDS ORDERED: Non-Formulary Medication 1 Each (Budesonide/Formoterol [Symbicort 160-4.5 Mcg] 2 PUFF) INH SCH (09:00)
[2018-01-09] MEDS ORDERED: CHOLESTYRAMINE PO SCH (09:00)
[2018-01-09] MEDS ORDERED: ACLIDINIUM BROMIDE INH SCH (09:00)
[2018-01-09] MEDS: Albuterol/Ipratropium 3.0-0.5 MG/3 ML Neb Soln INH PRN ×2 (10:11→20:45)
[2018-01-09] MEDS: CARVEDILOL 6.25 MG PO SCH ×2 (10:18→17:55)
[2018-01-09] MEDS: POLYETHYLENE GLYCOL 17 GM PO SCH ×2 (10:19→20:51)
[2018-01-09] MEDS: LOSARTAN PO SCH (10:19)
[2018-01-09] MEDS: HCTZ PO SCH (10:19)
[2018-01-09] MEDS: BUSPIRONE 15 MG PO SCH ×2 (10:20→20:49)
[2018-01-09] MEDS: SUCRALFATE 1 GM PO SCH ×3 (10:21→20:43)
[2018-01-09] MEDS ORDERED: Aluminum Hydroxide/Magnesium Hydroxide/Simethicone Susp 30 ML Cup PO PRN (10:23)
[2018-01-09] MEDS: Acetaminophen 325 MG Tab PO PRN ×3 (10:30→23:01)
[2018-01-09] MEDS ORDERED: Furosemide 40 MG/4 ML VIAL IVPUSH ONE (12:15)
[2018-01-09] MEDS ORDERED: WARFARIN 2.5 MG PO SCH (13:00)
--- NOTE | 2018-01-09 13:50 | PCM.PN ---
- General Info Date of Service: 01/09/18 Subjective Update: Mr. Mukherjee is a 77-year-old gentleman who was admitted to observation status through the emergency department with shortness of breath secondary to fluid overload and pulmonary edema. He is improved since admission following diuresis and has noted less shortness of breath and experienced no symptoms of orthopnea during the night. - Review of Systems General: Denies: Fever, Weakness, Chills Pulmonary: Reports: Shortness of Breath. Denies: Pleuritic Chest Pain, Cough, Sputum, Hemoptysis, Wheezing Cardiovascular: Reports: Dyspnea on Exertion, Edema. Denies: Chest Pain, Palpitations, Orthopnea, PND, Lightheadedness Gastrointestinal: Reports: No Symptoms - Patient Data Vitals - Most Recent: Last Vital Signs Temp 98.6 F 01/09/18 11:13 Pulse 67 01/09/18 11:13 Resp 15 01/09/18 11:13 BP 117/54 L 01/09/18 12:20 Pulse Ox 99 01/09/18 11:13 Weight - Most Recent: 179 lb 6.4 oz I&O - Last 24 Hours: Intake & Output 01/08/18 01/09/18 01/09/18 22:59 06:59 14:59 Intake Total 120 220 Output Total 2175 450 Balance -2054 Lab Results Last 24 Hours: Laboratory Results - last 24 hr 01/09/18 01/09/18 Range/Units 05:44 05:44 WBC 8.5 (4.5-11.0) K/uL RBC 3.80 L (4.30-5.90) M/uL Hgb 10.4 L (12.0-15.0) g/dL Hct 32.1 L (40.0-54.0) % MCV 85 (80-98) fL MCH 27 (27-31) pg MCHC 32 (32-36) % Plt Count 245 (150-400) K/uL Sodium 140 (140-148) mmol/L Potassium 3.7 (3.6-5.2) mmol/L Chloride 101 (100-108) mmol/L Carbon Dioxide 30 (21-32) mmol/L Anion Gap 9.3 (5.0-14.0) mmol/L BUN 17 (7-18) mg/dL Creatinine 1.2 (0.8-1.3) mg/dL Est Cr Clr Drug Dosing 51.46 mL/min Estimated GFR (MDRD) 59 L (>60) Glucose 88 (74-106) mg/dL Calcium 8.2 L (8.5-10.1) mg/dL Med Orders - Current: Current Medications Acetaminophen (Tylenol) 650 mg PO Q6H PRN PRN Reason: Pain Last Admin: 01/09/18 10:30 Dose: 650 mg Al Hydroxide/Mg Hydroxide (Mag-Al Plus) 30 ml PO Q4H PRN PRN Reason: Dyspepsia Last Admin: 01/09/18 11:04 Dose: 30 ml Albuterol/Ipratropium (Duoneb 3.0-0.5 Mg/3 Ml) 3 ml INH QIDRT PRN PRN Reason: RESP Last Admin: 01/09/18 10:11 Dose: 3 ml Furosemide (Lasix) 40 mg PO DAILY [facility] Oxycodone HCl (Oxycodone) 5 mg PO Q6H PRN PRN Reason: Pain Last Admin: 01/09/18 12:24 Dose: 5 mg Pantoprazole Sodium (Protonix) 40 mg PO ACBREAKFAST [facility] Last Admin: 01/09/18 08:56 Dose: 40 mg Aspirin Ec 81 Mg (Pom) 0 each PO BEDTIME KARLA Atorvastatin ( Lipitor) 20 MgPom* * 0 each PO BEDTIME KARLA Buspirone (Buspar) (15 MgPom) 0 each PO BID [facility] Last Admin: 01/09/18 10:20 Dose: 1 each Carvedilol (Coreg) 6 (.25 MgPom) 0 each PO BIDMEALS [facility] Last Admin: 01/09/18 10:18 Dose: 1 each Hydroxyzine Hcl ( (Atarax) 25 MgPom) 0 each PO TID PRN PRN Reason: Anxiety Losartan/Hctz 50-12. (5 MgPom) 0 each PO DAILY [facility] Last Admin: 01/09/18 10:19 Dose: 1 each Melatonin 5 Mg (TabletPom) 0 each PO BEDTIME KARLA Polyethylene Glycol 3350 (Miralax) 17 Gm Pom 0 each PO BID [facility] Last Admin: 01/09/18 10:19 Dose: 1 each Ranitidine (Zantac) (150 MgPom) 0 each PO BEDTIME KARLA Simethicone 80 Mg (Pom) 80 each PO ASDIRECTED PRN PRN Reason: Gas Sucralfate (Carafate () 1 GmPom) 0 each PO QIDACANDBED [facility] Last Admin: 01/09/18 10:21 Dose: 1 each Warfarin (Coumadin) (2.5 MgPom) 0 each PO DAILY@1300 [facility] Last Admin: 01/09/18 13:47 Dose: 1 each Sodium Chloride (Saline Flush) 10 ml FLUSH ASDIRECTED PRN PRN Reason: Keep Vein Open Last Admin: 01/09/18 00:12 Dose: 10 ml Discontinued Medications Acetaminophen (Tylenol) 650 mg PO Q6HR PRN PRN Reason: Pain Last Admin: 01/09/18 02:44 Dose: 650 mg Al Hydroxide/Mg Hydroxide 15 (ml/ Lidocaine HCl 15 ml) 0 ml PO ONETIME ONE Stop: 01/08/18 23:41 Last Admin: 01/09/18 00:03 Dose: 30 ml Furosemide (Lasix) 60 mg IVPUSH ONETIME ONE Stop: 01/08/18 21:34 Last Admin: 01/08/18 21:52 Dose: 60 mg Furosemide (Lasix) 40 mg IVPUSH NOW ONE Stop: 01/09/18 12:16 Last Admin: 01/09/18 12:20 Dose: 40 mg Hydromorphone HCl (Dilaudid) 0.5 mg IVPUSH ONETIME ONE Stop: 01/08/18 20:23 Last Admin: 01/08/18 20:57 Dose: 0.5 mg Sodium Chloride (Normal Saline) 1,000 mls @ 250 mls/hr IV ASDIRECTED [facility] Last Admin: 01/08/18 20:56 Dose: 250 mls/hr Sodium Chloride (Normal Saline) 100 mls @ 3 mls/sec IV ASDIRECTED [facility] Last Admin: 01/08/18 22:45 Dose: 3 mls/sec Iopamidol (Isovue-300 (61%)) 150 ml IV . DIRECTED [facility] Last Admin: 01/08/18 22:45 Dose: 150 ml Non-Formulary Medication (Aclidinium [place] [Tudorza Pressair]) 1 puff INH BID [facility] Last Admin: 01/09/18 13:48 Dose: Not Given Non-Formulary Medication (Albuterol Sulfate [Proair Respiclick]) 1 puff IH ASDIRECTED PRN PRN Reason: Wheezing Non-Formulary Medication (Budesonide/Formoterol [Symbicort 160-4.5 Mcg]) 2 puff INH BID [facility] Last Admin: 01/09/18 13:48 Dose: Not Given Non-Formulary Medication (Cholestyramine/Sucrose [Cholestyramine]) 4 gm PO TID [facility] Last Admin: 01/09/18 13:49 Dose: Not Given Pantoprazole Sodium (Protonix Iv) 40 mg IVPUSH ONETIME ONE Stop: 01/08/18 23:38 Last Admin: 01/09/18 00:05 Dose: 40 mg - Exam Quality Assessment: DVT Prophylaxis. No: Supplemental Oxygen General: Alert, Oriented, Cooperative, No Acute Distress Lungs: Normal Respiratory Effort, Decreased Breath Sounds, Rales. No: Rhonchi, Stridor, Wheezing Cardiovascular: Regular Rate, Regular Rhythm, No Murmurs GI/Abdominal Exam: Soft, Non-Tender, No Organomegaly, No Distention Extremities: Non-Tender, No Pedal Edema Skin: Warm, Dry, Intact - Problem List Review Problem List Initiated/Reviewed/Updated: Yes - My Orders Last 24 Hours: My Active Orders 01/09/18 10:23 Alum Hydrox/Mag Hydrox/Simeth [Mag-Al Plus] 30 ml PO Q4H PRN 01/09/18 11:52 Echo Comp wo Cont [US] Urgent 01/09/18 11:58 Cardiac Monitoring Discontinue [RC] Click to Edit Remove Pineda Catheter [Urinary Catheter Removal] [RC] Per Unit Routine 01/10/18 05:00 BASIC METABOLIC PANEL,BMP [CHEM] Timed INR,PT,PROTHROMBIN TIME [COAG] Timed 01/10/18 09:00 Furosemide [Lasix] 40 mg PO DAILY - Plan Plan:: ASSESSMENT AND PLAN CONGESTIVE HEART FAILURE-symptoms of shortness of breath on admission with increased fluid retention. Symptoms have improved since admission following diuresis. -Echocardiogram to assess left ventricular function -Furosemide 40 mg IV today -Furosemide 40 mg by mouth daily starting tomorrow CHRONIC KIDNEY DISEASE STAGE III -Closely monitor urine output and renal function HISTORY OF DEEP VEIN THROMBOSIS AND PULMONARY EMBOLI-on long-term oral anticoagulation with warfarin -Continue outpatient medical regimen of warfarin -INR in a.m. MAINTENANCE ISSUES -DVT prophylaxis; therapy with warfarin should provide adequate DVT prophylaxis -GI prophylaxis; not indicated -Pineda catheter; placed in the emergency department, removed today -Nutrition; 2 g sodium diet -Nicotinic dependence; not required CODE STATUS-FULL CODE ADMISSION STATUS-this patient will be admitted to observation status, expect no more than a one night hospital stay for evaluation and management of problems as outlined above. DISPOSITION-anticipate discharge to home tomorrow PRIMARY CARE PROVIDER-
[2018-01-09] MEDS: CHOLESTYRAMINE PO SCH (17:55)
[2018-01-09] MEDS: SUCROSE PO SCH (17:55)
[2018-01-09] MEDS ORDERED: MELATONIN 5 MG PO SCH (21:00)
[2018-01-09] MEDS ORDERED: ASPIRIN 81 MG PO SCH (21:00)
[2018-01-09] MEDS ORDERED: ATORVASTATIN 20 MG PO SCH (21:00)
[2018-01-09] MEDS ORDERED: RANITIDINE 150 MG PO SCH (21:00)
[2018-01-10] MEDS: oxyCODONE 5 MG Tab PO PRN ×2 (03:04→11:00)
[2018-01-10] MEDS: SUCRALFATE 1 GM PO SCH ×2 (07:39→11:03)
[2018-01-10] MEDS: PANTOPRAZOLE 40 MG PO SCH (07:39)
[2018-01-10] MEDS: Acetaminophen 325 MG Tab PO PRN (07:42)
[2018-01-10] MEDS: SUCROSE PO SCH ×2 (08:48→11:32)
[2018-01-10] MEDS: CHOLESTYRAMINE PO SCH ×2 (08:48→11:32)
[2018-01-10] MEDS: HCTZ PO SCH (08:50)
[2018-01-10] MEDS: LOSARTAN PO SCH (08:50)
[2018-01-10] MEDS: BUSPIRONE 15 MG PO SCH (08:50)
[2018-01-10] MEDS: CARVEDILOL 6.25 MG PO SCH (08:51)
[2018-01-10] MEDS: POLYETHYLENE GLYCOL 17 GM PO SCH (08:52)
[2018-01-10] MEDS ORDERED: Furosemide 40 MG Tab PO SCH (09:00)
[2018-01-10] MEDS: Albuterol/Ipratropium 3.0-0.5 MG/3 ML Neb Soln INH PRN (09:33)
[2018-01-10 11:39] VITALS: BP 115/63
--- NOTE | 2018-01-10 12:30 | PCM.DCSUM1 ---
Discharge Summary - Hospital Course Brief History: Mr. Mukherjee is a 77-year-old gentleman who was admitted through the emergency department with shortness of breath secondary to pulmonary edema and congestive heart failure. - Discharge Data Discharge Date: 01/10/18 Discharge Disposition: Home, Self-Care 01 Condition: Fair - Discharge Diagnosis/Problem(s) (1) Diastolic CHF SNOMED Code(s): 407697804 ICD Code: I50.30 - UNSPECIFIED DIASTOLIC (CONGESTIVE) HEART FAILURE Status : Acute Current Visit: Yes (2) History of pulmonary embolism SNOMED Code(s): 943846833 ICD Code: Z86.711 - PERSONAL HISTORY OF PULMONARY EMBOLISM Status: Acute Current Visit: Yes (3) Malignant neoplasm prostate SNOMED Code(s): 537353195 ICD Code: C61 - MALIGNANT NEOPLASM OF PROSTATE Status: Chronic Current Visit: No - Patient Summary/Data Consults: Consultations 01/09/18 16:48 PT Evaluation and Treatment [CONS] Routine Please Evaluate and Treat. PT Reason for Consult: Strengthening Pending Discharge: Yes This query below is only for informational purposes and is not editable. Admission Diagnosis/Problem: CHF, Congestive heart failure Hospital Course: Mr. Mukherjee is a 77-year-old gentleman who developed progressive symptoms of shortness of breath with decreased exercise tolerance over the week prior to admission. On evaluation in the emergency department was noted to have evidence of pulmonary edema on chest x-ray as well as an elevated BNP. He was felt to have probable congestive heart failure and was admitted to the hospital, he received IV furosemide in the emergency department with excellent result. With diuresis he noted significant improvement in his shortness of breath. He was given additional IV Lasix on the second day of hospitalization and then transitioned to oral Lasix on the day of discharge. Echocardiogram was obtained during the hospital stay, formal results are not yet available, but preliminary results show borderline normal left ventricular function with estimated ejection fraction of 50%. Also noted on the echocardiogram was left ventricular hypertrophy, left atrial enlargement, and left ventricular enlargement. He was felt to have diastolic congestive heart failure. On admission he was already treated with beta heather and KYE inhibitor and will be discharged home with oral furosemide 40 mg daily. I did review with him the importance of following a strict 2 g sodium diet. Activity will be as tolerated. He is requested his follow-up appointment be scheduled with Dr. Sebastian Hall at [facility] in [place]. He is on long-term oral anticoagulation because of previous history of pulmonary emboli. INR was subtherapeutic at the time of discharge. He will continue his usual dose of warfarin and a follow-up INR will be obtained in 2 days. - Patient Instructions Diet: Low Sodium Activity: As Tolerated Other/Special Instructions: Obtain a follow-up INR on January 12. Please schedule follow-up appointment with Dr. Sebastian Hall within one week. - Discharge Plan Prescriptions/Med Rec: Furosemide [Lasix] 40 mg PO DAILY #30 tablet Home Medications: Home Meds Acetaminophen [Tylenol] 650 mg PO Q6HR PRN 05/15/17 [History] Aclidinium [place] [Tudorza Pressair] 1 puff INH BID 05/15/17 [History] Albuterol Sulfate [Proair Respiclick] 1 puff IH ASDIRECTED PRN 05/15/17 [History ] Albuterol/Ipratropium [DuoNeb 3.0-0.5 MG/3 ML] 3 ml IH QID PRN 05/15/17 [History ] Aspirin [[place] Aspirin] 81 mg PO BEDTIME 05/15/17 [History] Budesonide/Formoterol [Symbicort 160-4.5 MCG] 2 puff INH BID 05/15/17 [History] Carvedilol 6.25 mg PO BID 05/15/17 [History] Cholestyramine/Sucrose [Cholestyramine] 4 gm PO TID 05/15/17 [History] Pantoprazole [ProTONIX] 40 mg PO DAILY 05/15/17 [History] Ranitidine [Zantac] 300 mg PO BEDTIME 05/15/17 [History] Simethicone 80 mg PO ASDIRECTED PRN 05/15/17 [History] Sucralfate 1 gm PO QID 05/15/17 [History] atorvaSTATin [Lipitor] 10 mg PO BEDTIME 05/15/17 [History] Losartan/Hydrochlorothiazide [Losartan-HCTZ 100-25 MG] 1 tab PO DAILY 07/25/17 [ History] oxyCODONE 1 tab PO Q6H PRN 07/25/17 [History] Warfarin [Coumadin] 2.5 mg PO DAILY #60 tablet 07/31/17 [Rx] hydrOXYzine HCl [hydrOXYzine] 25 mg PO TID PRN #30 tablet 07/31/17 [Rx] Melatonin/Pyridoxine HCl (B6) [Melatonin 10 mg Tablet] 1 tab PO BEDTIME [History] Polyethylene Glycol 3350 [MiraLAX] 17 gm PO BID 01/08/18 [History] busPIRone [Buspar] 7.5 mg PO BID 01/08/18 [History] Furosemide [Lasix] 40 mg PO DAILY #30 tablet 01/10/18 [Rx] Referrals: Sebastian Hall MD [Physician] - - Patient Data Vitals - Most Recent: Last Vital Signs Temp 97.9 F 01/10/18 11:25 Pulse 68 01/10/18 11:25 Resp 17 01/10/18 11:25 BP 115/63 01/10/18 11:25 Pulse Ox 97 01/10/18 11:25 Weight - Most Recent: 179 lb 6.4 oz I&O - Last 24 hours: Intake & Output 01/09/18 01/10/18 01/10/18 22:59 06:59 14:59 Intake Total 600 Output Total 1900 175 Balance -1300 -175 Lab Results - Last 24 hrs: Laboratory Results - last 24 hr 01/10/18 01/10/18 Range/Units 04:50 04:50 PT 16.4 H (9.5-12.0) sec INR 1.51 H (0.80-1.20) Sodium 138 L (140-148) mmol/L Potassium 3.7 (3.6-5.2) mmol/L Chloride 100 (100-108) mmol/L Carbon Dioxide 30 (21-32) mmol/L Anion Gap 11.7 (5.0-14.0) mmol/L BUN 22 H (7-18) mg/dL Creatinine 1.3 (0.8-1.3) mg/dL Est Cr Clr Drug Dosing 47.50 mL/min Estimated GFR (MDRD) 54 L (>60) Glucose 97 (74-106) mg/dL Calcium 8.3 L (8.5-10.1) mg/dL Med Orders - Current: Current Medications Acetaminophen (Tylenol) 650 mg PO Q6H PRN PRN Reason: Pain Last Admin: 01/10/18 07:42 Dose: 650 mg Al Hydroxide/Mg Hydroxide (Mag-Al Plus) 30 ml PO Q4H PRN PRN Reason: Dyspepsia Last Admin: 01/09/18 11:04 Dose: 30 ml Albuterol/Ipratropium (Duoneb 3.0-0.5 Mg/3 Ml) 3 ml INH QIDRT PRN PRN Reason: RESP Last Admin: 01/10/18 09:33 Dose: 3 ml Cholestyramine Resin (Cholestyramine Packet) 0 gm PO TIDMEALS [facility] Last Admin: 01/10/18 11:32 Dose: Not Given Furosemide (Lasix) 40 mg PO DAILY [facility] Last Admin: 01/10/18 08:50 Dose: 40 mg Oxycodone HCl (Oxycodone) 5 mg PO Q6H PRN PRN Reason: Pain Last Admin: 01/10/18 11:00 Dose: 5 mg Pantoprazole Sodium (Protonix) 40 mg PO ACBREAKFAST [facility] Last Admin: 01/10/18 07:39 Dose: 40 mg Aspirin Ec 81 Mg (Pom) 0 each PO BEDTIME [facility] Last Admin: 01/09/18 20:47 Dose: 1 each Atorvastatin ( Lipitor) 20 MgPom* * 0 each PO BEDTIME [facility] Last Admin: 01/09/18 20:48 Dose: 1 each Buspirone (Buspar) (15 MgPom) 0 each PO BID [facility] Last Admin: 01/10/18 08:50 Dose: 1 each Carvedilol (Coreg) 6 (.25 MgPom) 0 each PO BIDMEALS [facility] Last Admin: 01/10/18 08:51 Dose: 1 each Hydroxyzine Hcl ( (Atarax) 25 MgPom) 0 each PO TID PRN PRN Reason: Anxiety Last Admin: 01/09/18 17:54 Dose: 1 each Losartan/Hctz 50-12. (5 MgPom) 0 each PO DAILY [facility] Last Admin: 01/10/18 08:50 Dose: 1 each Melatonin 5 Mg (TabletPom) 0 each PO BEDTIME [facility] Last Admin: 01/09/18 20:50 Dose: 1 each Polyethylene Glycol 3350 (Miralax) 17 Gm Pom 0 each PO BID [facility] Last Admin: 01/10/18 08:52 Dose: 1 each Ranitidine (Zantac) (150 MgPom) 0 each PO BEDTIME [facility] Last Admin: 01/09/18 20:51 Dose: 1 each Simethicone 80 Mg (Pom) 80 each PO ASDIRECTED PRN PRN Reason: Gas Last Admin: 01/09/18 15:42 Dose: 80 each Sucralfate (Carafate () 1 GmPom) 0 each PO QIDACANDBED [facility] Last Admin: 01/10/18 11:03 Dose: 1 each Warfarin (Coumadin) (2.5 MgPom) 0 each PO DAILY@1300 [facility] Last Admin: 01/09/18 13:47 Dose: 1 each Sodium Chloride (Saline Flush) 10 ml FLUSH ASDIRECTED PRN PRN Reason: Keep Vein Open Last Admin: 01/09/18 00:12 Dose: 10 ml Discontinued Medications Acetaminophen (Tylenol) 650 mg PO Q6HR PRN PRN Reason: Pain Last Admin: 01/09/18 02:44 Dose: 650 mg Al Hydroxide/Mg Hydroxide 15 (ml/ Lidocaine HCl 15 ml) 0 ml PO ONETIME ONE Stop: 01/08/18 23:41 Last Admin: 01/09/18 00:03 Dose: 30 ml Furosemide (Lasix) 60 mg IVPUSH ONETIME ONE Stop: 01/08/18 21:34 Last Admin: 01/08/18 21:52 Dose: 60 mg Furosemide (Lasix) 40 mg IVPUSH NOW ONE Stop: 01/09/18 12:16 Last Admin: 01/09/18 12:20 Dose: 40 mg Hydromorphone HCl (Dilaudid) 0.5 mg IVPUSH ONETIME ONE Stop: 01/08/18 20:23 Last Admin: 01/08/18 20:57 Dose: 0.5 mg Sodium Chloride (Normal Saline) 1,000 mls @ 250 mls/hr IV ASDIRECTED [facility] Last Admin: 01/08/18 20:56 Dose: 250 mls/hr Sodium Chloride (Normal Saline) 100 mls @ 3 mls/sec IV ASDIRECTED [facility] Last Admin: 01/08/18 22:45 Dose: 3 mls/sec Iopamidol (Isovue-300 (61%)) 150 ml IV . DIRECTED [facility] Last Admin: 01/08/18 22:45 Dose: 150 ml Non-Formulary Medication (Aclidinium [place] [Tudorza Pressair]) 1 puff INH BID [facility] Last Admin: 01/09/18 13:48 Dose: Not Given Non-Formulary Medication (Albuterol Sulfate [Proair Respiclick]) 1 puff IH ASDIRECTED PRN PRN Reason: Wheezing Non-Formulary Medication (Budesonide/Formoterol [Symbicort 160-4.5 Mcg]) 2 puff INH BID [facility] Last Admin: 01/09/18 13:48 Dose: Not Given Non-Formulary Medication (Cholestyramine/Sucrose [Cholestyramine]) 4 gm PO TID [facility] Last Admin: 01/09/18 13:49 Dose: Not Given Pantoprazole Sodium (Protonix Iv) 40 mg IVPUSH ONETIME ONE Stop: 01/08/18 23:38 Last Admin: 01/09/18 00:05 Dose: 40 mg *Q Meaningful Use (DIS) - VTE *Q VTE Criteria *Q: - Stroke *Q Stroke Criteria *Q: - AMI *Q AMI Criteria *Q:
== END 2018-01-10 12:50 | disposition home or self-care (01) ==
LOC: JP.ED 17:55 → JP.2SS 23:54
PROVIDERS: ADMIT Family Medicine; ATTEND Hospitalist
DX: I50.30 Unspecified diastolic (congestive) heart failure (principal); C61 Malignant neoplasm of prostate; I25.810 Atherosclerosis of coronary artery bypass graft(s) without angina pectoris; I26.99 Other pulmonary embolism without acute cor pulmonale; K21.9 Gastro-esophageal reflux disease without esophagitis; J44.9 Chronic obstructive pulmonary disease, unspecified; I10 Essential (primary) hypertension; Z86.711 Personal history of pulmonary embolism; Z79.82 Long term (current) use of aspirin; Z79.01 Long term (current) use of anticoagulants; Z79.899 Other long term (current) drug therapy; Z87.891 Personal history of nicotine dependence
CPT/HCPCS: 36415; 74022; 74177; 80048; 80053; 81001; 83690; 83880; 85025; 85027; 85610; 86140; 93306; 93970; 94640; 96361; 96374; 96375; 99285; A9270; C9113; J1170; J1940; J7030; J7040; J7050; J7620

== ENCOUNTER 2018-03-08 16:10 | Emergency (ER) | payer MEDICARE, OTHER ==
--- NOTE | 2018-03-08 18:02 | EDM.PDOC ---
ED HPI GENERAL MEDICAL PROBLEM - General Chief Complaint: Abdominal Pain Stated Complaint: ABD PAIN/BLOOD IN STOOL Time Seen by Provider: 03/08/18 17:50 Source of Information: Reports: Patient, Family History Limitations: Reports: No Limitations - History of Present Illness INITIAL COMMENTS - FREE TEXT/NARRATIVE: 77-year-old male developed lower abdominal pain 5 or 6 hours ago, also noticed a small amount of blood in his stool. He just had a bowel movement here in the emergency room however and it appeared to be clear and normal. No fevers or chills. The pain is persistent, worse with movement and is across his lower abdomen left or right quadrant. He has not had this type of pain in the past, it does not radiate to the back. He has no upper abdominal pain. He has a history of cholecystectomy and appendectomy as well as prostate surgery, he has no urinary symptoms and feels he is emptying his bladder. He had a colonoscopy within the last year or two. Was told it was normal. Onset: Sudden (Pain was fairly sudden onset earlier this afternoon around 6 hours ago) Duration: Hour(s): Severity: Moderate (6 hours) Associated Symptoms: Reports: Other (Some blood in his stool). Denies: Chest Pain, Cough, Malaise, Nausea/Vomiting, Shortness of Breath Bilateral Lower Abdominal Pain Score (Numeric/FACES): 6 - Related Data Allergies Allergy/AdvReac Type Severity Reaction Status Date / Time No Known Allergies Allergy Verified 01/08/18 20:00 Home Meds: Home Meds Acetaminophen [Tylenol] 650 mg PO Q6HR PRN 05/15/17 [History] Aclidinium [place] [Tudorza Pressair] 1 puff INH BID 05/15/17 [History] Albuterol Sulfate [Proair Respiclick] 1 puff IH ASDIRECTED PRN 05/15/17 [History ] Albuterol/Ipratropium [DuoNeb 3.0-0.5 MG/3 ML] 3 ml IH QID PRN 05/15/17 [History ] Aspirin [[place] Aspirin] 81 mg PO BEDTIME 05/15/17 [History] Budesonide/Formoterol [Symbicort 160-4.5 MCG] 2 puff INH BID 05/15/17 [History] Carvedilol 6.25 mg PO BID 05/15/17 [History] Pantoprazole [ProTONIX] 40 mg PO DAILY 05/15/17 [History] Ranitidine [Zantac] 300 mg PO BEDTIME 05/15/17 [History] Simethicone 80 mg PO ASDIRECTED PRN 05/15/17 [History] Sucralfate 1 gm PO QID 05/15/17 [History] atorvaSTATin [Lipitor] 10 mg PO BEDTIME 05/15/17 [History] Losartan/Hydrochlorothiazide [Losartan-HCTZ 100-25 MG] 1 tab PO DAILY 07/25/17 [ History] oxyCODONE 1 tab PO Q6H PRN 07/25/17 [History] Warfarin [Coumadin] 2.5 mg PO DAILY #60 tablet 07/31/17 [Rx] hydrOXYzine HCl [hydrOXYzine] 25 mg PO TID PRN #30 tablet 07/31/17 [Rx] Melatonin/Pyridoxine HCl (B6) [Melatonin 10 mg Tablet] 1 tab PO BEDTIME [History] Polyethylene Glycol 3350 [MiraLAX] 17 gm PO BID 01/08/18 [History] busPIRone [Buspar] 7.5 mg PO BID 01/08/18 [History] Furosemide [Lasix] 20 mg PO DAILY 03/08/18 [History] Past Medical History Cardiovascular History: Reports: Afib, Bypass, CAD, Hypertension, [place], SOB on Exertion, Stents Respiratory History: Reports: COPD Gastrointestinal History: Reports: Cholelithiasis, GERD, PUD Genitourinary History: Reports: Prostate Disorder Musculoskeletal History: Reports: Arthritis Psychiatric History: Reports: Anxiety Oncologic (Cancer) History: Reports: Prostate - Infectious Disease History Infectious Disease History: Reports: C-Difficile, Measles, Mumps, Shingles - Past Surgical History Head Surgeries/Procedures: Reports: None Cardiovascular Surgical History: Reports: Coronary Artery Bypass, Coronary Artery Stent, Percutaneous Transluminal Angioplasty, Other (See Below) Other Cardiovascular Surgeries/Procedures: stents in both legs Respiratory Surgical History: Reports: None GI Surgical History: Reports: Appendectomy, Cholecystectomy, Colonoscopy, Hernia Repair/Other Male Surgical History: Reports: Prostatectomy Musculoskeletal Surgical History: Reports: Knee Replacement Oncologic Surgical History: Reports: None Dermatological Surgical History: Reports: None Social & Family History - Family History Family Medical History: Noncontributory - Tobacco Use Smoking Status *Q: Never Smoker - Caffeine Use Caffeine Use: Reports: Coffee - Recreational Drug Use Recreational Drug Use: No ED ROS GENERAL - Review of Systems Review Of Systems: See Below Constitutional: Denies: Fever, Chills Respiratory: Reports: Shortness of Breath (Some chronic intermittent shortness of breath no change) Cardiovascular: Denies: Chest Pain GI/Abdominal: Reports: Abdominal Pain, Bloody Stool. Denies: Black Stool, Nausea, Vomiting : Reports: Other (On Lasix and urinates frequently, no dysuria and feels he is completely emptying his bladder) Skin: Reports: No Symptoms Neurological: Denies: Headache Psychiatric: Reports: No Symptoms ED EXAM, GI/ABD - Physical Exam Exam: See Below Exam Limited By: No Limitations General Appearance: Alert, No Apparent Distress Eyes: Bilateral: Normal Appearance (No jaundice) Head: Atraumatic Respiratory/Chest: No Respiratory Distress, Lungs Clear Cardiovascular: Regular Rate, Rhythm GI/Abdominal Exam: Soft (Upper abdomen is nontender, he does react with tenderness across the lower abdomen with a small amount of guarding especially in the left side) Course - Vital Signs Last Recorded V/S: Last Vital Signs Temp 97.8 F 03/08/18 18:05 Pulse 88 03/08/18 18:05 Resp 18 03/08/18 18:05 BP 147/86 H 03/08/18 18:05 Pulse Ox 96 03/08/18 18:05 - Orders/Labs/Meds Orders: Active Orders 24 hr Category Date Time Status Abdomen Pelvis wo Cont [CT] Stat Exams 03/08/18 18:47 Taken Hemoccult [OCCULT BLOOD DIAGNOSTIC] [OP] Stat Lab 03/08/18 18:36 Ordered UA W/MICROSCOPIC [URIN] Urgent Lab 03/08/18 17:00 Ordered Labs: Laboratory Tests 03/08/18 03/08/18 03/08/18 Range/Units 17:00 18:00 18:00 WBC 6.7 (4.5-11.0) K/uL RBC 3.87 L (4.30-5.90) M/uL Hgb 10.5 L (12.0-15.0) g/dL Hct 32.4 L (40.0-54.0) % MCV 84 (80-98) fL MCH 27 (27-31) pg MCHC 32 (32-36) % Plt Count 237 (150-400) K/uL Neut % (Auto) 54 (36-66) % Lymph % (Auto) 30 (24-44) % [place] % (Auto) 11 H (2-6) % Eos % (Auto) 5 H (2-4) % Baso % (Auto) 0 (0-1) % Sodium 139 L (140-148) mmol/L Potassium 3.3 L (3.6-5.2) mmol/L Chloride 98 L (100-108) mmol/L Carbon Dioxide 31 (21-32) mmol/L Anion Gap 13.3 (5.0-14.0) mmol/L BUN 17 (7-18) mg/dL Creatinine 1.2 (0.8-1.3) mg/dL Est Cr Clr Drug Dosing 53.19 mL/min Estimated GFR (MDRD) 59 L (>60) Glucose 98 (74-106) mg/dL Calcium 7.8 L (8.5-10.1) mg/dL Total Bilirubin 0.5 (0.2-1.0) mg/dL AST 22 (15-37) U/L ALT 23 (12-78) U/L Alkaline Phosphatase 81 (46-116) U/L Total Protein 6.5 (6.4-8.2) g/dL Albumin 3.5 (3.4-5.0) g/dL Globulin 3.0 (2.3-3.5) g/dL Albumin/Globulin Ratio 1.2 (1.2-2.2) Urine Color Yellow Urine Appearance Clear Urine pH 7.0 (4.5-8.0) Ur Specific [place] 1.005 L (1.008-1.030) Urine Protein Negative (NEGATIVE) mg/dL Urine Glucose (UA) Normal (NEGATIVE) mg/dL Urine Ketones Negative (NEGATIVE) mg/dL Urine Occult Blood Negative (NEGATIVE) Urine Nitrite Negative (NEGAITVE) Urine Bilirubin Negative (NEGATIVE) Urine Urobilinogen Normal (NORMAL) mg/dL Ur Leukocyte Esterase Negative (NEGATIVE) Urine RBC 0-5 (0-5) Urine WBC 0-5 (0-5) Ur Epithelial Cells Rare Amorphous Sediment Few Urine Bacteria Few Urine Mucus Not seen - Re-Assessments/Exams Free Text/Narrative Re-Assessment/Exam: 03/08/18 18:03 CBC and CMP were obtained, we will likely need a CT scan to rule out diverticulitis or other source of pain. 03/08/18 20:38 CT scan was ordered after the CBC and CMP returned reassuring and normal. I felt there may have been a slight amount of stranding around the descending colon but the radiologist wasn't convinced and it was read as negative. Only report on the CT was a slight stranding around the bladder, it was recommended to correlate with a UTI. His urine was negative. He was sent home with 6 hydrocodone for pain control and will recheck in the next 24-48 hours if not improving, especially if he developeds fever or more pain Departure - Departure Time of Disposition: 20:59 Disposition: Home, Self-Care 01 Condition: Good Clinical Impression: Abdominal pain Qualifiers: Abdominal location: lower abdomen, unspecified Qualified Code(s): R10.30 - Lower abdominal pain, unspecified - Discharge Information Instructions: Abdominal Pain, Adult, [id number] Referrals: PCP,None [Primary Care Provider] - Forms: ED Department Discharge Care Plan Goals: Get plenty of fluids, increase diet as tolerated and take pain medications if needed over the next 1-2 days. Recheck in 2-3 days if not improving satisfactorily, or return sooner if worsening such as increased pain or fever. - My Orders Last 24 Hours: My Active Orders 03/08/18 17:00 UA W/MICROSCOPIC [URIN] Urgent 03/08/18 18:36 Hemoccult [OCCULT BLOOD DIAGNOSTIC] [OP] Stat 03/08/18 18:47 Abdomen Pelvis wo Cont [CT] Stat - Assessment/Plan Last 24 Hours: My Active Orders 03/08/18 17:00 UA W/MICROSCOPIC [URIN] Urgent 03/08/18 18:36 Hemoccult [OCCULT BLOOD DIAGNOSTIC] [OP] Stat 03/08/18 18:47 Abdomen Pelvis wo Cont [CT] Stat
[2018-03-08 18:05] VITALS: BP 147/86
== END 2018-03-08 21:03 | disposition home or self-care (01) ==
LOC: JP.ED 16:10
DX: R10.30 Lower abdominal pain, unspecified (principal); R10.31 Right lower quadrant pain; R19.5 Other fecal abnormalities; I10 Essential (primary) hypertension; I48.91 Unspecified atrial fibrillation; J44.9 Chronic obstructive pulmonary disease, unspecified; M19.90 Unspecified osteoarthritis, unspecified site; F41.9 Anxiety disorder, unspecified; Z79.82 Long term (current) use of aspirin; Z79.899 Other long term (current) drug therapy; Z79.01 Long term (current) use of anticoagulants
CPT/HCPCS: 36415; 74176; 80053; 81001; 82272; 85025; 99284-25

== ENCOUNTER 2018-04-10 17:14 | Emergency (ER) | payer MEDICARE ==
[2018-04-10] MEDS ORDERED: Metoclopramide 10 MG/2 ML SDV IVPUSH ONE (17:49)
[2018-04-10] MEDS ORDERED: Sodium Chloride 0.9% 1,000 ML IV SCH (18:00)
--- NOTE | 2018-04-10 18:07 | EDM.PDOC ---
ED HPI GENERAL MEDICAL PROBLEM - General Chief Complaint: Abdominal Pain Stated Complaint: NAUSEATED, WEAK Time Seen by Provider: 04/10/18 17:24 Source of Information: Reports: Patient History Limitations: Reports: No Limitations - History of Present Illness INITIAL COMMENTS - FREE TEXT/NARRATIVE: 77 yo male presents with lower ABD pain. pt has had diarrhea for 7 days. He was seen in in clinic 1 week ago and told to stop Miralax he did and stool formed, he was worried about constipation so he restarted miralax at half cap. felt fine yesterday, last evening mild lower ABD pain, this AM mild ABD pain progressing to more severe pain. last bm was very small and liquid this AM. pain is cramping in nature. Pt nauseated without emesis throughout the day. denies fever, chills or headache. Denies CP, or SOB Lower Abdomen Pain Score (Numeric/FACES): 8 - Related Data Allergies Allergy/AdvReac Type Severity Reaction Status Date / Time No Known Allergies Allergy Verified 04/10/18 17:21 Home Meds: Home Meds Albuterol Sulfate [Proair Respiclick] 1 puff IH ASDIRECTED PRN 05/15/17 [History ] Albuterol/Ipratropium [DuoNeb 3.0-0.5 MG/3 ML] 3 ml IH QID PRN 05/15/17 [History ] Aspirin [[place] Aspirin] 81 mg PO BEDTIME 05/15/17 [History] Budesonide/Formoterol [Symbicort 160-4.5 MCG] 2 puff INH BID 05/15/17 [History] Carvedilol 6.25 mg PO BID 05/15/17 [History] Pantoprazole [ProTONIX] 40 mg PO DAILY 05/15/17 [History] Ranitidine [Zantac] 300 mg PO BEDTIME 05/15/17 [History] Simethicone 80 mg PO ASDIRECTED PRN 05/15/17 [History] Sucralfate 1 gm PO QID 05/15/17 [History] atorvaSTATin [Lipitor] 10 mg PO BEDTIME 05/15/17 [History] Losartan/Hydrochlorothiazide [Losartan-HCTZ 100-25 MG] 1 tab PO DAILY 07/25/17 [ History] oxyCODONE 1 tab PO Q6H PRN 07/25/17 [History] hydrOXYzine HCl [hydrOXYzine] 25 mg PO TID PRN #30 tablet 07/31/17 [Rx] Melatonin/Pyridoxine HCl (B6) [Melatonin 10 mg Tablet] 1 tab PO BEDTIME [History] Polyethylene Glycol 3350 [MiraLAX] 17 gm PO BID 01/08/18 [History] busPIRone [Buspar] 7.5 mg PO BID 01/08/18 [History] Furosemide [Lasix] 20 mg PO DAILY 03/08/18 [History] *Potassium 10 meq PO DAILY 04/10/18 [History] Acetaminophen [Tylenol Arthritis] 650 mg PO TID 04/10/18 [History] Past Medical History Cardiovascular History: Reports: Afib, Bypass, CAD, Hypertension, [place], SOB on Exertion, Stents Respiratory History: Reports: COPD Gastrointestinal History: Reports: Cholelithiasis, GERD, PUD Genitourinary History: Reports: Prostate Disorder Musculoskeletal History: Reports: Arthritis Psychiatric History: Reports: Anxiety Oncologic (Cancer) History: Reports: Prostate - Infectious Disease History Infectious Disease History: Reports: C-Difficile, Measles, Mumps, Shingles - Past Surgical History Cardiovascular Surgical History: Reports: Coronary Artery Bypass, Coronary Artery Stent, Percutaneous Transluminal Angioplasty, Other (See Below) Other Cardiovascular Surgeries/Procedures: stents in both legs Respiratory Surgical History: Reports: None GI Surgical History: Reports: Appendectomy, Cholecystectomy, Colonoscopy, Hernia Repair/Other Male Surgical History: Reports: Prostatectomy Musculoskeletal Surgical History: Reports: Knee Replacement Social & Family History - Family History Family Medical History: Noncontributory - Tobacco Use Smoking Status *Q: Unknown Ever Smoked - Caffeine Use Caffeine Use: Reports: Coffee ED ROS GENERAL - Review of Systems Review Of Systems: See Below Constitutional: Denies: Fever, Chills Respiratory: Denies: Shortness of Breath, Wheezing Cardiovascular: Denies: Chest Pain GI/Abdominal: Reports: Abdominal Pain, Anorexia, Diarrhea, Nausea. Denies: Black Stool, Bloody Stool, Vomiting : Denies: Dysuria, Flank Pain, Frequency, Hematuria Skin: Denies: Rash Neurological: Denies: Confusion, Dizziness, Headache ED EXAM, GI/ABD - Physical Exam Exam: See Below Exam Limited By: No Limitations General Appearance: Alert, WD/WN, No Apparent Distress Head: Atraumatic, Normocephalic Neck: Normal Inspection, Supple, Non-Tender, Full Range of Motion. No: Lymphadenopathy (R), Lymphadenopathy (L) Respiratory/Chest: No Respiratory Distress, Lungs Clear, Normal Breath Sounds, No Accessory Muscle Use, Chest Non-Tender. No: Crackles, Rhonchi, Wheezing Cardiovascular: Normal Peripheral Pulses, Regular Rate, Rhythm, No Edema, No Gallop GI/Abdominal Exam: Soft, No Organomegaly, Tender, Abnormal Bowel Sounds ( hypoactive) Back Exam: Normal Inspection, Full Range of Motion. No: CVA Tenderness (R), CVA Tenderness (L) Neurological: Alert, Oriented Psychiatric: Normal Affect, Normal Mood Skin Exam: Warm, Dry, Intact, Normal Color, No Rash Course - Vital Signs Last Recorded V/S: Last Vital Signs Temp 36.7 C 04/10/18 17:18 Pulse 67 04/10/18 19:33 Resp 18 04/10/18 19:33 BP 107/88 04/10/18 19:33 Pulse Ox 98 04/10/18 19:33 - Orders/Labs/Meds Orders: Active Orders 24 hr Category Date Time Status Abdomen 2V AP Flat Upright [CR] Stat Exams 04/10/18 19:36 Ordered CLOSTRIDIUM DIFFICILE BY PCR [RM] Stat Lab 04/10/18 19:38 Ordered UA W/MICROSCOPIC [URIN] Stat Lab 04/10/18 19:11 Ordered Sodium Chloride 0.9% [Normal Saline] 1,000 ml Med 04/10/18 18:00 Active IV ASDIRECTED Medication Orders Sodium Chloride (Normal Saline) 1,000 mls @ 999 mls/hr IV ASDIRECTED KARLA Last Admin: 04/10/18 18:14 Dose: 999 mls/hr Labs: Laboratory Tests 04/10/18 04/10/18 04/10/18 Range/Units 18:02 18:02 19:11 WBC 7.4 (4.5-11.0) K/uL RBC 4.09 L (4.30-5.90) M/uL Hgb 11.0 L (12.0-15.0) g/dL Hct 34.3 L (40.0-54.0) % MCV 84 (80-98) fL MCH 27 (27-31) pg MCHC 32 (32-36) % Plt Count 264 (150-400) K/uL Neut % (Auto) 51 (36-66) % Lymph % (Auto) 31 (24-44) % [place] % (Auto) 14 H (2-6) % Eos % (Auto) 5 H (2-4) % Baso % (Auto) 0 (0-1) % Sodium 138 L (140-148) mmol/L Potassium 3.7 (3.6-5.2) mmol/L Chloride 99 L (100-108) mmol/L Carbon Dioxide 31 (21-32) mmol/L Anion Gap 11.7 (5.0-14.0) mmol/L BUN 21 H (7-18) mg/dL Creatinine 1.2 (0.8-1.3) mg/dL Est Cr Clr Drug Dosing 51.46 mL/min Estimated GFR (MDRD) 59 L (>60) Glucose 110 H (74-106) mg/dL Calcium 8.0 L (8.5-10.1) mg/dL Total Bilirubin 0.5 (0.2-1.0) mg/dL AST 21 (15-37) U/L ALT 22 (12-78) U/L Alkaline Phosphatase 88 (46-116) U/L Total Protein 6.9 (6.4-8.2) g/dL Albumin 3.6 (3.4-5.0) g/dL Globulin 3.3 (2.3-3.5) g/dL Albumin/Globulin Ratio 1.1 L (1.2-2.2) Urine Color Yellow Urine Appearance Clear Urine pH 8.0 (4.5-8.0) Ur Specific [place] 1.010 (1.008-1.030) Urine Protein Negative (NEGATIVE) mg/dL Urine Glucose (UA) Normal (NEGATIVE) mg/dL Urine Ketones Negative (NEGATIVE) mg/dL Urine Occult Blood Negative (NEGATIVE) Urine Nitrite Negative (NEGAITVE) Urine Bilirubin Negative (NEGATIVE) Urine Urobilinogen Normal (NORMAL) mg/dL Ur Leukocyte Esterase Negative (NEGATIVE) Urine RBC 0-5 (0-5) Urine WBC 0-5 (0-5) Ur Epithelial Cells Not seen Amorphous Sediment Not seen Urine Bacteria Not seen Urine Mucus Not seen Meds: Medications Generic Name Dose Route Start Last Admin Trade Name Freq PRN Reason Stop Dose Admin Sodium Chloride 1,000 mls @ 999 mls/hr 04/10/18 18:00 04/10/18 18:14 Normal Saline IV 999 mls/hr ASDIRECTED KARLA Administration Discontinued Medications Generic Name Dose Route Start Last Admin Trade Name Iain PRN Reason Stop Dose Admin Ketorolac Tromethamine 30 mg 04/10/18 19:04 04/10/18 19:11 Toradol IVPUSH 04/10/18 19:05 30 mg ONETIME ONE Administration Metoclopramide HCl 5 mg 04/10/18 17:49 04/10/18 18:14 Reglan IVPUSH 04/10/18 17:50 5 mg ONETIME ONE Administration - Re-Assessments/Exams Free Text/Narrative Re-Assessment/Exam: 04/10/18 20:17 pt received ketoralc and IV fluids and feels much improved Departure - Departure Time of Disposition: 20:17 Disposition: Home, Self-Care 01 Condition: Good Clinical Impression: Lower abdominal pain Diarrhea Qualifiers: Diarrhea type: unspecified type Qualified Code(s): R19.7 - Diarrhea, unspecified - Discharge Information Instructions: Abdominal Pain, Adult, [id number] Referrals: Sebastian Hall MD [Primary Care Provider] - Forms: ED Department Discharge Additional Instructions: follow-up with primary care provider if pain does not resolve in 48 hours fluid intake goal of 64 ounces per day may find relief with gax-x Ibuprofen 400 mg every 6 hours for pain - My Orders Last 24 Hours: My Active Orders 04/10/18 18:00 Sodium Chloride 0.9% [Normal Saline] 1,000 ml IV ASDIRECTED 04/10/18 19:11 UA W/MICROSCOPIC [URIN] Stat 04/10/18 19:36 Abdomen 2V AP Flat Upright [CR] Stat 04/10/18 19:38 CLOSTRIDIUM DIFFICILE BY PCR [RM] Stat - Assessment/Plan Last 24 Hours: My Active Orders 04/10/18 18:00 Sodium Chloride 0.9% [Normal Saline] 1,000 ml IV ASDIRECTED 04/10/18 19:11 UA W/MICROSCOPIC [URIN] Stat 04/10/18 19:36 Abdomen 2V AP Flat Upright [CR] Stat 04/10/18 19:38 CLOSTRIDIUM DIFFICILE BY PCR [RM] Stat
[2018-04-10] MEDS ORDERED: Ketorolac 30 MG/ML SDV IVPUSH ONE (19:04)
[2018-04-10 20:23] VITALS: BP 150/76
--- NOTE | 2018-04-11 08:31 | CR ---
Abdomen 2V AP Flat Upright CLINICAL HISTORY: Abdominal pain FINDINGS: Small intestinal gas pattern is nonacute. There is gas and feces in the colon. There are galeano rgical clips and sutures in the pelvis and right upper quadrant. No free air is identified. There is some elevation of the right hemidiaphragm. IMPRESSION: Nonacute intestinal gas pattern Previous abdominal surgery
== END 2018-04-10 20:29 | disposition home or self-care (01) ==
LOC: JP.ED 17:14
DX: R19.7 Diarrhea, unspecified (principal); I10 Essential (primary) hypertension; E78.00 Pure hypercholesterolemia, unspecified; I25.2 Old myocardial infarction; K21.9 Gastro-esophageal reflux disease without esophagitis; F41.9 Anxiety disorder, unspecified; Z79.899 Other long term (current) drug therapy; Z79.82 Long term (current) use of aspirin
CPT/HCPCS: 36415; 74019; 80053; 81001; 85025; 87493; 96374; 96375; 99284; J1885; J2765; J7030

== ENCOUNTER 2018-05-16 04:53 | Emergency (ER) | payer MEDICARE ==
[2018-05-16 05:10] VITALS: BP 169/80
--- NOTE | 2018-05-16 05:39 | EDM.PDOC ---
ED HPI GENERAL MEDICAL PROBLEM - General Chief Complaint: Gastrointestinal Problem Stated Complaint: BLOATED Time Seen by Provider: 05/16/18 05:35 History Limitations: Reports: No Limitations - History of Present Illness INITIAL COMMENTS - FREE TEXT/NARRATIVE: pt arrived feeling very bloated in the upper abdoman. His abdoman feels very tight. He is passing gas per rectum. He has done some belching but has not gotten relief. Onset: Today Duration: Hour(s): Location: Reports: Abdomen Associated Symptoms: Reports: No Other Symptoms abd Pain Score (Numeric/FACES): 6 - Related Data Allergies Allergy/AdvReac Type Severity Reaction Status Date / Time No Known Allergies Allergy Verified 05/16/18 05:11 Home Meds: Home Meds Albuterol Sulfate [Proair Respiclick] 1 puff IH ASDIRECTED PRN 05/15/17 [History ] Albuterol/Ipratropium [DuoNeb 3.0-0.5 MG/3 ML] 3 ml IH QID PRN 05/15/17 [History ] Aspirin [[place] Aspirin] 81 mg PO BEDTIME 05/15/17 [History] Budesonide/Formoterol [Symbicort 160-4.5 MCG] 2 puff INH BID 05/15/17 [History] Carvedilol 6.25 mg PO BID 05/15/17 [History] Pantoprazole [ProTONIX] 40 mg PO DAILY 05/15/17 [History] Ranitidine [Zantac] 300 mg PO BEDTIME 05/15/17 [History] Simethicone 80 mg PO ASDIRECTED PRN 05/15/17 [History] Sucralfate 1 gm PO QID 05/15/17 [History] atorvaSTATin [Lipitor] 10 mg PO BEDTIME 05/15/17 [History] Losartan/Hydrochlorothiazide [Losartan-HCTZ 100-25 MG] 1 tab PO DAILY 07/25/17 [ History] oxyCODONE 1 tab PO Q6H PRN 07/25/17 [History] hydrOXYzine HCl [hydrOXYzine] 25 mg PO TID PRN #30 tablet 07/31/17 [Rx] Melatonin/Pyridoxine HCl (B6) [Melatonin 10 mg Tablet] 1 tab PO BEDTIME [History] Polyethylene Glycol 3350 [MiraLAX] 17 gm PO BID 01/08/18 [History] busPIRone [Buspar] 7.5 mg PO BID 01/08/18 [History] Furosemide [Lasix] 20 mg PO DAILY 03/08/18 [History] *Potassium 10 meq PO DAILY 04/10/18 [History] Acetaminophen [Tylenol Arthritis] 650 mg PO TID 04/10/18 [History] Past Medical History Cardiovascular History: Reports: Afib, Bypass, CAD, Hypertension, [place], SOB on Exertion, Stents Respiratory History: Reports: COPD Gastrointestinal History: Reports: Cholelithiasis, GERD, Pancreatitis, PUD Genitourinary History: Reports: Prostate Disorder Musculoskeletal History: Reports: Arthritis Psychiatric History: Reports: Anxiety Oncologic (Cancer) History: Reports: Prostate - Infectious Disease History Infectious Disease History: Reports: C-Difficile, Measles, Mumps, Shingles - Past Surgical History Head Surgeries/Procedures: Reports: None Cardiovascular Surgical History: Reports: Coronary Artery Bypass, Coronary Artery Stent, Percutaneous Transluminal Angioplasty, Other (See Below) Other Cardiovascular Surgeries/Procedures: stents in both legs Respiratory Surgical History: Reports: None GI Surgical History: Reports: Appendectomy, Cholecystectomy, Colonoscopy, Hernia Repair/Other Male Surgical History: Reports: Prostatectomy Musculoskeletal Surgical History: Reports: Knee Replacement Dermatological Surgical History: Reports: None Social & Family History - Family History Family Medical History: Noncontributory - Tobacco Use Smoking Status *Q: Former Smoker Used Tobacco, but Quit: Yes Month/Year Tobacco Last Used: 12 - Caffeine Use Caffeine Use: Reports: Coffee - Recreational Drug Use Recreational Drug Use: No ED ROS GENERAL - Review of Systems Review Of Systems: See Below Constitutional: Reports: No Symptoms HEENT: Reports: No Symptoms Respiratory: Reports: No Symptoms Cardiovascular: Reports: No Symptoms Endocrine: Reports: No Symptoms GI/Abdominal: Reports: Distension, Other ( feels distended. ) : Reports: No Symptoms Musculoskeletal: Reports: No Symptoms Skin: Reports: No Symptoms ED EXAM, GI/ABD - Physical Exam Exam: See Below Text/Narrative:: pt arrived with pain in the epigastric area. He felt like he needed to belch but he was not able to get rid of the pain. He has been unconfortable since about 3 am. Exam Limited By: No Limitations General Appearance: Alert, Moderate Distress Ears: Normal TMs Nose: Normal Inspection Throat/Mouth: Normal Inspection Head: Atraumatic Neck: Normal Inspection Respiratory/Chest: No Respiratory Distress Cardiovascular: Regular Rate, Rhythm GI/Abdominal Exam: Non-Tender, Distended, Other ( tender in the epigastric area. ) (Male) Exam: Deferred Rectal (Males) Exam: Deferred Back Exam: Normal Inspection Extremities: Normal Inspection Neurological: Alert, Oriented, Normal Cognition Psychiatric: Normal Affect Course - Vital Signs Last Recorded V/S: Last Vital Signs Temp 36.1 C 05/16/18 05:09 Pulse 81 05/16/18 05:09 Resp 16 05/16/18 05:09 BP 169/80 H 05/16/18 05:09 Pulse Ox 96 05/16/18 05:09 - Orders/Labs/Meds Orders: Active Orders 24 hr Category Date Time Status Abdomen Series w Chest 1V [CR] Urgent Exams 05/16/18 05:35 Taken Labs: Laboratory Tests 05/16/18 05/16/18 05/16/18 Range/Units 05:45 05:45 05:45 WBC 7.2 (4.5-11.0) K/uL RBC 3.81 L (4.30-5.90) M/uL Hgb 10.4 L (12.0-15.0) g/dL Hct 31.8 L (40.0-54.0) % MCV 84 (80-98) fL MCH 27 (27-31) pg MCHC 33 (32-36) % Plt Count 250 (150-400) K/uL Neut % (Auto) 56 (36-66) % Lymph % (Auto) 27 (24-44) % [place] % (Auto) 12 H (2-6) % Eos % (Auto) 5 H (2-4) % Baso % (Auto) 0 (0-1) % Sodium 139 L (140-148) mmol/L Potassium 3.1 L (3.6-5.2) mmol/L Chloride 97 L (100-108) mmol/L Carbon Dioxide 29 (21-32) mmol/L Anion Gap 16.1 H (5.0-14.0) mmol/L BUN 21 H (7-18) mg/dL Creatinine 1.4 H (0.8-1.3) mg/dL Est Cr Clr Drug Dosing 32.24 mL/min Estimated GFR (MDRD) 49 L (>60) Glucose 106 (74-106) mg/dL Calcium 8.4 L (8.5-10.1) mg/dL Total Bilirubin 0.5 (0.2-1.0) mg/dL AST 23 (15-37) U/L ALT 26 (12-78) U/L Alkaline Phosphatase 81 (46-116) U/L Total Protein 6.5 (6.4-8.2) g/dL Albumin 3.4 (3.4-5.0) g/dL Globulin 3.1 (2.3-3.5) g/dL Albumin/Globulin Ratio 1.1 L (1.2-2.2) Lipase 85 (73-393) U/L Meds: Medications Discontinued Medications Generic Name Dose Route Start Last Admin Trade Name Brianq PRN Reason Stop Dose Admin Al Hydroxide/Mg Hydroxide 15 0 ml 05/16/18 05:59 05/16/18 06:04 ml/ Lidocaine HCl 15 ml PO 05/16/18 06:00 15 ml ONETIME ONE Administration Famotidine 20 mg 05/16/18 07:04 Pepcid PO 05/16/18 07:05 ONETIME ONE - Re-Assessments/Exams Free Text/Narrative Re-Assessment/Exam: 05/16/18 07:05 pt arrived with pain in the epigastric area. He feels like he has alot of gas. He has been having bms and has been passing gas. He was given GI cocktail and he belched several times. He does feel muich better. 05/16/18 07:06 Departure - Departure Time of Disposition: 07:08 Disposition: Home, Self-Care 01 Condition: Fair Clinical Impression: Abdominal bloating with cramps, Hypokalemia - Discharge Information Referrals: PCP,None [Primary Care Provider] - Forms: ED Department Discharge Care Plan Goals: cont same meds rtc if problems. - My Orders Last 24 Hours: My Active Orders 05/16/18 05:35 Abdomen Series w Chest 1V [CR] Urgent - Assessment/Plan Last 24 Hours: My Active Orders 05/16/18 05:35 Abdomen Series w Chest 1V [CR] Urgent
[2018-05-16] MEDS ORDERED: Alum Hydrox/Mag Hydrox/Simeth 15 ML, Lidocaine 2% 15 ML PO ONE ×2 (05:59)
[2018-05-16] MEDS ORDERED: Famotidine 20 MG Tab PO ONE (07:04)
--- NOTE | 2018-05-16 09:06 | CR ---
Abdomen Series w Chest 1V CLINICAL HISTORY: Abdominal pain FINDINGS: Lung chamberlain are clear. There has been previous sternotomy. No free air is identified. Intes tinal gas pattern is nonacute. There are surgical clips in the right upper quadrant and in both the l ower quadrants and inguinal regions. There is a 3 x 7 mm calcific the density in the left paraspinal region just below the L4 transverse process. This is not seen on prior study. IMPRESSION: Nonacute intestinal gas pattern Small calcific density in the left paraspinal region. This could be vascular. In that no urinary ston es are identified on the CT study from February 2018, a ureteral calcification is felt unlikely Previous sternotomy
== END 2018-05-16 07:30 | disposition home or self-care (01) ==
LOC: JP.ED 04:53
DX: R14.0 Abdominal distension (gaseous) (principal); R10.9 Unspecified abdominal pain; E87.6 Hypokalemia; I10 Essential (primary) hypertension; I25.2 Old myocardial infarction; I48.91 Unspecified atrial fibrillation; J44.9 Chronic obstructive pulmonary disease, unspecified; Z79.899 Other long term (current) drug therapy; Z87.891 Personal history of nicotine dependence; Z79.82 Long term (current) use of aspirin
CPT/HCPCS: 36415; 74022; 80053; 83690; 85025; 99284; A9270

== ENCOUNTER 2018-06-11 18:38 | Emergency (ER) | payer MEDICARE ==
[2018-06-11] MEDS ORDERED: Sodium Chloride 0.9% 1,000 ML IV SCH ×2 (19:30→21:30)
--- NOTE | 2018-06-11 19:31 | EDM.PDOC ---
ED HPI GENERAL MEDICAL PROBLEM - General Chief Complaint: Gastrointestinal Problem Stated Complaint: FLU??BODY IS ACHEY Time Seen by Provider: 06/11/18 19:24 Source of Information: Reports: Patient History Limitations: Reports: No Limitations - History of Present Illness INITIAL COMMENTS - FREE TEXT/NARRATIVE: pt has had diarrhea for the past 4 days. He has had about 5 stools per day. He has had alot of cramping. He has been passing alot of gas. He has not noted blood in the stool. Onset: Gradual, Other ( He has had loose stools for the the past 4-5 days. ) Duration: Day(s):, Getting Worse, Other (pt is feeling weak and shakey. ) Location: Reports: Abdomen, Other (pt is coughing up thick mucous. ) Associated Symptoms: Reports: Cough, Other ( cramping and weakness. ) Abdominal Pain Score (Numeric/FACES): 7 - Related Data Allergies Allergy/AdvReac Type Severity Reaction Status Date / Time No Known Allergies Allergy Verified 05/16/18 05:11 Home Meds: Home Meds Albuterol Sulfate [Proair Respiclick] 1 puff IH ASDIRECTED PRN 05/15/17 [History ] Albuterol/Ipratropium [DuoNeb 3.0-0.5 MG/3 ML] 3 ml IH QID PRN 05/15/17 [History ] Aspirin [[place] Aspirin] 81 mg PO BEDTIME 05/15/17 [History] Budesonide/Formoterol [Symbicort 160-4.5 MCG] 2 puff INH BID 05/15/17 [History] Carvedilol 6.25 mg PO BID 05/15/17 [History] Pantoprazole [ProTONIX] 40 mg PO DAILY 05/15/17 [History] Ranitidine [Zantac] 300 mg PO BEDTIME 05/15/17 [History] Simethicone 80 mg PO ASDIRECTED PRN 05/15/17 [History] Sucralfate 1 gm PO QID 05/15/17 [History] atorvaSTATin [Lipitor] 10 mg PO BEDTIME 05/15/17 [History] Losartan/Hydrochlorothiazide [Losartan-HCTZ 100-25 MG] 1 tab PO DAILY 07/25/17 [ History] oxyCODONE 1 tab PO Q6H PRN 07/25/17 [History] hydrOXYzine HCl [hydrOXYzine] 25 mg PO TID PRN #30 tablet 07/31/17 [Rx] Melatonin/Pyridoxine HCl (B6) [Melatonin 10 mg Tablet] 1 tab PO BEDTIME [History] Polyethylene Glycol 3350 [MiraLAX] 17 gm PO BID 01/08/18 [History] busPIRone [Buspar] 7.5 mg PO BID 01/08/18 [History] Furosemide [Lasix] 20 mg PO DAILY 03/08/18 [History] *Potassium 10 meq PO DAILY 04/10/18 [History] Acetaminophen [Tylenol Arthritis] 650 mg PO TID 04/10/18 [History] Cholecalciferol (Vitamin D3) [Vitamin D] 5,000 unit PO ASDIRECTED 06/11/18 [ History] Cilostazol 100 mg PO BID 06/11/18 [History] Cyanocobalamin (Vitamin B12) [Vitamin B12] 1,000 mcg PO ASDIRECTED 06/11/18 [ History] Past Medical History Cardiovascular History: Reports: Afib, Bypass, CAD, Hypertension, [place], SOB on Exertion, Stents Respiratory History: Reports: COPD Gastrointestinal History: Reports: Cholelithiasis, GERD, Pancreatitis, PUD Genitourinary History: Reports: Prostate Disorder Musculoskeletal History: Reports: Arthritis Psychiatric History: Reports: Anxiety Oncologic (Cancer) History: Reports: Prostate - Infectious Disease History Infectious Disease History: Reports: C-Difficile, Measles, Mumps, Shingles - Past Surgical History Head Surgeries/Procedures: Reports: None Cardiovascular Surgical History: Reports: Coronary Artery Bypass, Coronary Artery Stent, Percutaneous Transluminal Angioplasty, Other (See Below) Other Cardiovascular Surgeries/Procedures: stents in both legs Respiratory Surgical History: Reports: None GI Surgical History: Reports: Appendectomy, Cholecystectomy, Colonoscopy, Hernia Repair/Other Male Surgical History: Reports: Prostatectomy Musculoskeletal Surgical History: Reports: Knee Replacement Dermatological Surgical History: Reports: None Social & Family History - Family History Family Medical History: Noncontributory - Tobacco Use Smoking Status *Q: Never Smoker - Caffeine Use Caffeine Use: Reports: Soda - Recreational Drug Use Recreational Drug Use: No ED ROS GENERAL - Review of Systems Review Of Systems: See Below Constitutional: Reports: Weakness, Fatigue HEENT: Reports: No Symptoms Respiratory: Reports: Cough Cardiovascular: Reports: No Symptoms Endocrine: Reports: No Symptoms GI/Abdominal: Reports: Diarrhea, Decreased Appetite : Reports: No Symptoms Musculoskeletal: Reports: No Symptoms Skin: Reports: No Symptoms Neurological: Reports: No Symptoms Psychiatric: Reports: No Symptoms ED EXAM, GI/ABD - Physical Exam Exam: See Below Text/Narrative:: pt arrived with severe crampy pain in the lower abdoman. He is passing alot of gas. He has had diarrhea for 4-5 days. He has no vblood in the urine, Exam Limited By: No Limitations General Appearance: Alert, Moderate Distress Ears: Normal TMs Nose: Normal Inspection Throat/Mouth: Normal Inspection Head: Atraumatic Neck: Normal Inspection Respiratory/Chest: No Respiratory Distress Cardiovascular: Regular Rate, Rhythm GI/Abdominal Exam: Other (lower abdoman feels slightly distended. ) (Male) Exam: Deferred Rectal (Males) Exam: Deferred Extremities: Normal Inspection, Other (left leg is cooler. ) Neurological: Alert, Oriented, Normal Cognition Psychiatric: Normal Affect Course - Vital Signs Last Recorded V/S: Last Vital Signs Temp 35.6 C 06/11/18 20:28 Pulse 67 06/11/18 23:17 Resp 16 06/11/18 23:17 BP 122/62 06/11/18 23:17 Pulse Ox 98 06/11/18 23:17 - Orders/Labs/Meds Orders: Active Orders 24 hr Category Date Time Status Pineda Catheter Insertion [Insert Urinary Catheter] [OM. Care 06/11/18 20:00 Ordered PC] Q24H Urinary Catheter Assessment [RC] ASDIRECTED Care 06/11/18 19:55 Inactive Abdomen Pelvis w Cont [CT] Stat Exams 06/11/18 21:26 Taken Abdomen Series w Chest 1V [CR] Urgent Exams 06/11/18 19:23 Taken CLOSTRIDIUM DIFFICILE BY PCR [RM] Stat Lab 06/11/18 20:12 Ordered CULTURE STOOL + SHIGATOX [RM] Stat Lab 06/11/18 20:00 Received UA W/MICROSCOPIC [URIN] Urgent Lab 06/11/18 20:59 Ordered Iopamidol [Isovue-300 (61%)] Med 06/11/18 21:45 Active 100 ml IV . DIRECTED Sodium Chloride 0.9% [Normal Saline] 1,000 ml Med 06/11/18 19:30 Active IV ASDIRECTED Sodium Chloride 0.9% [Normal Saline] 1,000 ml Med 06/11/18 21:30 Active IV ASDIRECTED Sodium Chloride 0.9% [Normal Saline] 100 ml Med 06/11/18 21:45 Active IV ASDIRECTED Medication Orders Sodium Chloride (Normal Saline) 1,000 mls @ 999 mls/hr IV ASDIRECTED KARLA Last Admin: 06/11/18 20:21 Dose: 999 mls/hr Sodium Chloride (Normal Saline) 1,000 mls @ 400 mls/hr IV ASDIRECTED KARLA Last Admin: 06/11/18 23:03 Dose: 400 mls/hr Sodium Chloride (Normal Saline) 100 mls @ 3 mls/sec IV ASDIRECTED KARLA Last Admin: 06/11/18 22:28 Dose: 3 mls/sec Iopamidol (Isovue-300 (61%)) 100 ml IV . DIRECTED KARLA Last Admin: 06/11/18 22:28 Dose: 100 ml Labs: Laboratory Tests 06/11/18 06/11/18 06/11/18 Range/Units 19:00 19:13 19:13 WBC 6.8 (4.5-11.0) K/uL RBC 4.15 L (4.30-5.90) M/uL Hgb 11.0 L (12.0-15.0) g/dL Hct 33.9 L (40.0-54.0) % MCV 82 (80-98) fL MCH 27 (27-31) pg MCHC 32 (32-36) % Plt Count 275 (150-400) K/uL Neut % (Auto) 52 (36-66) % Lymph % (Auto) 30 (24-44) % [place] % (Auto) 14 H (2-6) % Eos % (Auto) 5 H (2-4) % Baso % (Auto) 0 (0-1) % Sodium 135 L (140-148) mmol/L Potassium 3.0 L (3.6-5.2) mmol/L Chloride 96 L (100-108) mmol/L Carbon Dioxide 32 (21-32) mmol/L Anion Gap 10.0 (5.0-14.0) mmol/L BUN 17 (7-18) mg/dL Creatinine 1.3 (0.8-1.3) mg/dL Est Cr Clr Drug Dosing 49.10 mL/min Estimated GFR (MDRD) 54 L (>60) Glucose 97 (74-106) mg/dL Calcium 8.1 L (8.5-10.1) mg/dL Total Bilirubin 0.6 (0.2-1.0) mg/dL AST 52 H D (15-37) U/L ALT 57 D (12-78) U/L Alkaline Phosphatase 123 H (46-116) U/L C-Reactive Protein (0.0-0.3) mg/dL Total Protein 6.6 (6.4-8.2) g/dL Albumin 3.4 (3.4-5.0) g/dL Globulin 3.2 (2.3-3.5) g/dL Albumin/Globulin Ratio 1.1 L (1.2-2.2) Urine Color Cancelled Urine Appearance Cancelled Urine pH Cancelled Ur Specific [place] Cancelled Urine Protein Cancelled Urine Glucose (UA) Cancelled Urine Ketones Cancelled Urine Occult Blood Cancelled Urine Nitrite Cancelled Urine Bilirubin Cancelled Urine Urobilinogen Cancelled Ur Leukocyte Esterase Cancelled Urine RBC Cancelled Urine WBC Cancelled Ur Epithelial Cells Cancelled Amorphous Sediment Cancelled Urine Bacteria Cancelled Urine Mucus Cancelled Urine Other Cancelled Urinalysis Comment Cancelled 06/11/18 06/11/18 Range/Units 19:23 20:59 WBC (4.5-11.0) K/uL RBC (4.30-5.90) M/uL Hgb (12.0-15.0) g/dL Hct (40.0-54.0) % MCV (80-98) fL MCH (27-31) pg MCHC (32-36) % Plt Count (150-400) K/uL Neut % (Auto) (36-66) % Lymph % (Auto) (24-44) % [place] % (Auto) (2-6) % Eos % (Auto) (2-4) % Baso % (Auto) (0-1) % Sodium (140-148) mmol/L Potassium (3.6-5.2) mmol/L Chloride (100-108) mmol/L Carbon Dioxide (21-32) mmol/L Anion Gap (5.0-14.0) mmol/L BUN (7-18) mg/dL Creatinine (0.8-1.3) mg/dL Est Cr Clr Drug Dosing mL/min Estimated GFR (MDRD) (>60) Glucose (74-106) mg/dL Calcium (8.5-10.1) mg/dL Total Bilirubin (0.2-1.0) mg/dL AST (15-37) U/L ALT (12-78) U/L Alkaline Phosphatase (46-116) U/L C-Reactive Protein 0.51 H (0.0-0.3) mg/dL Total Protein (6.4-8.2) g/dL Albumin (3.4-5.0) g/dL Globulin (2.3-3.5) g/dL Albumin/Globulin Ratio (1.2-2.2) Urine Color Yellow Urine Appearance Clear Urine pH 7.0 Ur Specific [place] 1.010 Urine Protein Negative Urine Glucose (UA) Normal Urine Ketones Negative Urine Occult Blood Negative Urine Nitrite Negative Urine Bilirubin Negative Urine Urobilinogen Normal Ur Leukocyte Esterase Negative Urine RBC 0-5 Urine WBC 0-5 Ur Epithelial Cells Rare Amorphous Sediment Not seen Urine Bacteria Few Urine Mucus Not seen Urine Other Urinalysis Comment Meds: Medications Generic Name Dose Route Start Last Admin Trade Name Freq PRN Reason Stop Dose Admin Sodium Chloride 1,000 mls @ 999 mls/hr 06/11/18 19:30 06/11/18 20:21 Normal Saline IV 999 mls/hr ASDIRECTED KARLA Administration Sodium Chloride 1,000 mls @ 400 mls/hr 06/11/18 21:30 06/11/18 23:03 Normal Saline IV 400 mls/hr ASDIRECTED KARLA Administration Sodium Chloride 100 mls @ 3 mls/sec 06/11/18 21:45 06/11/18 22:28 Normal Saline IV 3 mls/sec ASDIRECTED KARLA Administration Iopamidol 100 ml 06/11/18 21:45 06/11/18 22:28 Isovue-300 (61%) IV 100 ml . DIRECTED KARLA Administration Discontinued Medications Generic Name Dose Route Start Last Admin Trade Name Freq PRN Reason Stop Dose Admin Potassium Chloride 20 meq/ 100 mls @ 50 mls/hr 06/11/18 19:49 06/11/18 20:24 Premix IV 06/11/18 21:48 50 mls/hr ONETIME ONE Administration Potassium Chloride 20 meq 06/11/18 19:50 06/11/18 20:23 Klor-Con M20 PO 06/11/18 19:51 20 meq ONETIME ONE Administration - Re-Assessments/Exams Free Text/Narrative Re-Assessment/Exam: 06/11/18 23:40 pt was found to have a low k. He has a mild anemia but does not have a elevated wbc. His clostrium diff was neg. He had a cat scan which did not reveal anyu acute abdomanal findings. He has a stool culture pending. He was hydrated with 1.5 liters of fluid. Departure - Departure Time of Disposition: 23:43 Disposition: Home, Self-Care 01 Condition: Fair Clinical Impression: Viral illness, Dehydration, Hypokalemia - Discharge Information Referrals: Sebastian Hall MD [Primary Care Provider] - Forms: ED Department Discharge Care Plan Goals: push clear liquid diet, imodium as need 2-3 times daily for diarrhea, will notify of the stool culture, kcl 10meq 1 tab daily. High k foods. - My Orders Last 24 Hours: My Active Orders 06/11/18 19:23 Abdomen Series w Chest 1V [CR] Urgent 06/11/18 19:30 Sodium Chloride 0.9% [Normal Saline] 1,000 ml IV ASDIRECTED 06/11/18 19:55 Urinary Catheter Assessment [RC] ASDIRECTED 06/11/18 20:00 Pineda Catheter Insertion [Insert Urinary Catheter] [OM.PC] Q24H CULTURE STOOL + SHIGATOX [RM] Stat 06/11/18 20:12 CLOSTRIDIUM DIFFICILE BY PCR [RM] Stat 06/11/18 20:59 UA W/MICROSCOPIC [URIN] Urgent 06/11/18 21:26 Abdomen Pelvis w Cont [CT] Stat 06/11/18 21:30 Sodium Chloride 0.9% [Normal Saline] 1,000 ml IV ASDIRECTED 06/11/18 21:45 Iopamidol [Isovue-300 (61%)] 100 ml IV . DIRECTED Sodium Chloride 0.9% [Normal Saline] 100 ml IV ASDIRECTED - Assessment/Plan Last 24 Hours: My Active Orders 06/11/18 19:23 Abdomen Series w Chest 1V [CR] Urgent 06/11/18 19:30 Sodium Chloride 0.9% [Normal Saline] 1,000 ml IV ASDIRECTED 06/11/18 19:55 Urinary Catheter Assessment [RC] ASDIRECTED 06/11/18 20:00 Pineda Catheter Insertion [Insert Urinary Catheter] [OM.PC] Q24H CULTURE STOOL + SHIGATOX [RM] Stat 06/11/18 20:12 CLOSTRIDIUM DIFFICILE BY PCR [] Stat 06/11/18 20:59 UA W/MICROSCOPIC [URIN] Urgent 06/11/18 21:26 Abdomen Pelvis w Cont [CT] Stat 06/11/18 21:30 Sodium Chloride 0.9% [Normal Saline] 1,000 ml IV ASDIRECTED 06/11/18 21:45 Iopamidol [Isovue-300 (61%)] 100 ml IV . DIRECTED Sodium Chloride 0.9% [Normal Saline] 100 ml IV ASDIRECTED
[2018-06-11] MEDS ORDERED: Potassium Chloride 20 MEQ in Premix Bag 1 BAG IV ONE (19:49)
[2018-06-11] MEDS ORDERED: Potassium Chloride 20 MEQ Tab.ER PO ONE (19:50)
[2018-06-11] MEDS ORDERED: Sodium Chloride 0.9% 100 ML IV SCH (21:45)
[2018-06-11] MEDS ORDERED: Iopamidol 612 MG/ML 100 ML Bottle IV SCH (21:45)
[2018-06-11 23:17] VITALS: BP 122/62
[2018-06-11] MEDS ORDERED: Loperamide 1 MG/5 ML Soln 5 ML UD Cup PO ONE (23:42)
--- NOTE | 2018-06-12 11:28 | CR ---
Abdomen Series w Chest 1V CLINICAL HISTORY: Abdominal pain FINDINGS: The lungs are clear. No free air is identified. Intestinal gas pattern is nonacute. There i s been previous the low pelvic surgery. There is moderate atherosclerotic vascular disease. IMPRESSION: Nonacute intestinal gas pattern Lung chamberlain are clear
== END 2018-06-12 00:04 | disposition home or self-care (01) ==
LOC: JP.ED 18:38
DX: B34.9 Viral infection, unspecified (principal); E87.6 Hypokalemia; E86.0 Dehydration; I10 Essential (primary) hypertension; I48.91 Unspecified atrial fibrillation; K21.9 Gastro-esophageal reflux disease without esophagitis; F41.9 Anxiety disorder, unspecified; Z79.899 Other long term (current) drug therapy; Z79.82 Long term (current) use of aspirin
CPT/HCPCS: 36415; 51702; 74022; 74177; 80053; 81001; 85025; 86140; 87046; 87493; 87899; 96360; 96361; 99285; A9270; J3480; J7030; Q9967

== ENCOUNTER 2018-06-16 12:57 | Emergency (ER) | payer MEDICARE ==
[2018-06-16 13:01] VITALS: BP 177/84
--- NOTE | 2018-06-16 13:27 | EDM.PDOC ---
ED HPI GENERAL MEDICAL PROBLEM - General Chief Complaint: General Stated Complaint: BLEEDING FROM ANGIOGRAM Time Seen by Provider: 06/16/18 13:00 Source of Information: Reports: Patient, Family History Limitations: Reports: No Limitations - History of Present Illness INITIAL COMMENTS - FREE TEXT/NARRATIVE: 77-year-old male who had an angiogram of his right lower extremity by vascular surgery within the past few days, discharged from the hospital within the last 24 hours with an OpSite dressing on his right groin is in by ambulance because of a small amount of blood underneath the dressing. He was told that if there was "any blood" he should get to a hospital right away. He is very anxious but otherwise feels fine. Onset: Unknown/Unsure Severity: Mild Associated Symptoms: Denies: Cough, Malaise, Nausea/Vomiting - Related Data Allergies Allergy/AdvReac Type Severity Reaction Status Date / Time No Known Allergies Allergy Verified 05/16/18 05:11 Home Meds: Home Meds Albuterol Sulfate [Proair Respiclick] 1 puff IH ASDIRECTED PRN 05/15/17 [History ] Albuterol/Ipratropium [DuoNeb 3.0-0.5 MG/3 ML] 3 ml IH QID PRN 05/15/17 [History ] Aspirin [[place] Aspirin] 81 mg PO BEDTIME 05/15/17 [History] Budesonide/Formoterol [Symbicort 160-4.5 MCG] 2 puff INH BID 05/15/17 [History] Carvedilol 6.25 mg PO BID 05/15/17 [History] Pantoprazole [ProTONIX] 40 mg PO DAILY 05/15/17 [History] Ranitidine [Zantac] 300 mg PO BEDTIME 05/15/17 [History] Simethicone 80 mg PO ASDIRECTED PRN 05/15/17 [History] Sucralfate 1 gm PO QID 05/15/17 [History] atorvaSTATin [Lipitor] 10 mg PO BEDTIME 05/15/17 [History] Losartan/Hydrochlorothiazide [Losartan-HCTZ 100-25 MG] 1 tab PO DAILY 07/25/17 [ History] oxyCODONE 1 tab PO Q6H PRN 07/25/17 [History] hydrOXYzine HCl [hydrOXYzine] 25 mg PO TID PRN #30 tablet 10/08/17 [Rx] Melatonin/Pyridoxine HCl (B6) [Melatonin 10 mg Tablet] 1 tab PO BEDTIME [History] Polyethylene Glycol 3350 [MiraLAX] 17 gm PO BID 01/08/18 [History] busPIRone [Buspar] 7.5 mg PO BID 01/08/18 [History] Furosemide [Lasix] 20 mg PO DAILY 03/08/18 [History] *Potassium 10 meq PO DAILY 04/10/18 [History] Acetaminophen [Tylenol Arthritis] 650 mg PO TID 04/10/18 [History] Cholecalciferol (Vitamin D3) [Vitamin D] 5,000 unit PO ASDIRECTED 06/11/18 [ History] Cilostazol 100 mg PO BID 06/11/18 [History] Cyanocobalamin (Vitamin B12) [Vitamin B12] 1,000 mcg PO ASDIRECTED 06/11/18 [ History] Past Medical History Cardiovascular History: Reports: Afib, Bypass, CAD, Hypertension, [place], SOB on Exertion, Stents Respiratory History: Reports: COPD Gastrointestinal History: Reports: Cholelithiasis, GERD, Pancreatitis, PUD Genitourinary History: Reports: Prostate Disorder Musculoskeletal History: Reports: Arthritis Psychiatric History: Reports: Anxiety Oncologic (Cancer) History: Reports: Prostate - Infectious Disease History Infectious Disease History: Reports: Chicken Pox, Measles, Mumps - Past Surgical History Head Surgeries/Procedures: Reports: None Cardiovascular Surgical History: Reports: Coronary Artery Bypass, Coronary Artery Stent, Percutaneous Transluminal Angioplasty, Other (See Below) Other Cardiovascular Surgeries/Procedures: stents in both legs Respiratory Surgical History: Reports: None GI Surgical History: Reports: Appendectomy, Cholecystectomy, Colonoscopy, Hernia Repair/Other Male Surgical History: Reports: Prostatectomy Musculoskeletal Surgical History: Reports: Knee Replacement Dermatological Surgical History: Reports: None Social & Family History - Family History Family Medical History: Noncontributory - Tobacco Use Smoking Status *Q: Never Smoker - Caffeine Use Caffeine Use: Reports: Tea - Recreational Drug Use Recreational Drug Use: No ED ROS GENERAL - Review of Systems Review Of Systems: See Below Constitutional: Denies: Fever, Chills Respiratory: Denies: Shortness of Breath Cardiovascular: Denies: Chest Pain Skin: Denies: Bruising, Erythema ED EXAM, GENERAL - Physical Exam Exam: See Below Exam Limited By: No Limitations General Appearance: Alert, No Apparent Distress, Anxious Respiratory/Chest: No Respiratory Distress, Lungs Clear Extremities: Other (Exam is otherwise limited to the right lower extremity. A clear plastic dressing is over the groin, a small puncture wound is present and is a very tiny amount of blood that has escaped from the wound. There is no active bleeding, no underlying hematoma or fluctuance or bruising) Course - Vital Signs Last Recorded V/S: Last Vital Signs Temp 97.9 F 06/16/18 13:00 Pulse 102 H 06/16/18 13:00 Resp 20 06/16/18 13:00 BP 177/84 H 06/16/18 13:00 Pulse Ox 96 06/16/18 13:00 - Re-Assessments/Exams Free Text/Narrative Re-Assessment/Exam: 06/16/18 13:25 The dressing was removed, the area cleaned and a new OpSite dressing was applied. Patient and his were reassured. They can return if bleeding recurs and is persistent. Departure - Departure Time of Disposition: 13:40 Disposition: Home, Self-Care 01 Condition: Good Clinical Impression: Haemorrhage postprocedure Qualifiers: Surgical complication system/body Area: musculoskeletal system Procedure type: non-musculoskeletal Qualified Code(s): M96.831 - Postprocedural hemorrhage of a musculoskeletal structure following other procedure - Discharge Information Referrals: PCP,None [Primary Care Provider] - Forms: ED Department Discharge Care Plan Goals: Remove dressing in 2 days as requested by your vascular surgeon. Return sooner if difficulties or bleeding recurs and is persistent.
== END 2018-06-16 13:41 | disposition home or self-care (01) ==
LOC: JP.ED 12:57
DX: M96.831 Postprocedural hemorrhage of a musculoskeletal structure following other procedure (principal); I10 Essential (primary) hypertension; J44.9 Chronic obstructive pulmonary disease, unspecified; Z79.899 Other long term (current) drug therapy
CPT/HCPCS: 99283

== ENCOUNTER 2019-03-22 12:06 | Emergency (ER) | payer MEDICARE ==
[2019-03-22 12:33] VITALS: BP 144/64
--- NOTE | 2019-03-22 13:05 | EDM.PDOC ---
ED HPI GENERAL MEDICAL PROBLEM - General Chief Complaint: Respiratory Problem Stated Complaint: DIFFICULTY BREATHING Time Seen by Provider: 03/22/19 12:45 Source of Information: Reports: Patient, Family History Limitations: Reports: No Limitations - History of Present Illness INITIAL COMMENTS - FREE TEXT/NARRATIVE: 78-year-old male with COPD, on home nebs and inhaled steroids finished a course of antibiotics and steroids roughly 2 weeks ago and was feeling better. Over the last week he is redevelops symptoms such as dyspnea with activity, persistent cough, and sputum production. No fevers or chills. Onset: Gradual Duration: Day(s): (Worsening for the past 3-5 days) Associated Symptoms: Reports: Cough, Malaise, Shortness of Breath. Denies: Fever/Chills, Headaches, Loss of Appetite, Nausea/Vomiting Neck Pain Score (Numeric/FACES): 6 - Related Data Allergies Allergy/AdvReac Type Severity Reaction Status Date / Time simvastatin Allergy Cannot Verified 03/22/19 12:33 Remember Home Meds: Home Meds Albuterol Sulfate [Proair Respiclick] 1 puff IH BID PRN 05/15/17 [History] Albuterol/Ipratropium [DuoNeb 3.0-0.5 MG/3 ML] 3 ml IH QID PRN 05/15/17 [History ] Aspirin [[place] Aspirin] 81 mg PO BEDTIME 05/15/17 [History] Budesonide/Formoterol [Symbicort 160-4.5 MCG] 2 puff INH BID 05/15/17 [History] Carvedilol 6.25 mg PO BID 05/15/17 [History] Pantoprazole [ProTONIX] 40 mg PO DAILY 05/15/17 [History] Ranitidine [Zantac] 300 mg PO BEDTIME 05/15/17 [History] Simethicone 80 mg PO BID PRN 05/15/17 [History] Sucralfate 1 gm PO QID 05/15/17 [History] atorvaSTATin [Lipitor] 10 mg PO BEDTIME 05/15/17 [History] Losartan/Hydrochlorothiazide [Losartan-HCTZ 100-25 MG] 1 tab PO DAILY 07/25/17 [ History] oxyCODONE 1 tab PO Q6H PRN 07/25/17 [History] Melatonin/Pyridoxine HCl (B6) [Melatonin Tr 10 mg Tablet] 6 mg PO BEDTIME [History] Furosemide [Lasix] 20 mg PO DAILY 03/08/18 [History] Acetaminophen [Tylenol Arthritis] 650 mg PO TID 04/10/18 [History] Cholecalciferol (Vitamin D3) [Vitamin D] 5,000 unit PO BEDTIME 06/11/18 [History ] Cyanocobalamin (Vitamin B12) [Vitamin B12] 1,000 mcg PO DAILY 06/11/18 [History] hydrOXYzine HCl [hydrOXYzine] 25 mg PO BEDTIME 06/30/18 [History] Past Medical History Cardiovascular History: Reports: Afib, Bypass, CAD, Hypertension, [place], SOB on Exertion, Stents Respiratory History: Reports: COPD, SOB Gastrointestinal History: Reports: Cholelithiasis, GERD, Pancreatitis, PUD Genitourinary History: Reports: Prostate Disorder Musculoskeletal History: Reports: Arthritis Psychiatric History: Reports: Anxiety Oncologic (Cancer) History: Reports: Prostate - Infectious Disease History Infectious Disease History: Reports: Chicken Pox, Measles, Mumps - Past Surgical History Cardiovascular Surgical History: Reports: Coronary Artery Bypass, Coronary Artery Stent, Percutaneous Transluminal Angioplasty, Other (See Below) Other Cardiovascular Surgeries/Procedures: stents in both legs GI Surgical History: Reports: Appendectomy, Cholecystectomy, Colonoscopy, Hernia Repair/Other Male Surgical History: Reports: Prostatectomy Musculoskeletal Surgical History: Reports: Knee Replacement Social & Family History - Family History Family Medical History: Noncontributory - Tobacco Use Smoking Status *Q: Former Smoker Used Tobacco, but Quit: Yes Month/Year Tobacco Last Used: 2016 - Caffeine Use Caffeine Use: Reports: Coffee Other Caffeine Use: 1 cup per day - Recreational Drug Use Recreational Drug Use: No ED ROS GENERAL - Review of Systems Review Of Systems: See Below Constitutional: Denies: Fever, Chills Respiratory: Reports: Shortness of Breath, Cough, Sputum Cardiovascular: Reports: Other (Recent angiogram was negative). Denies: Chest Pain Skin: Denies: Bruising Neurological: Denies: Headache Psychiatric: Reports: No Symptoms ED EXAM, GENERAL - Physical Exam Exam: See Below Exam Limited By: No Limitations General Appearance: Alert, No Apparent Distress Throat/Mouth: Normal Inspection Head: Atraumatic Respiratory/Chest: Decreased Breath Sounds (Mild decreased breath sounds over the right lung, but overall good air movement, no significant wheezing at this time) Neurological: Alert, Oriented Skin Exam: Warm, Dry Course - Vital Signs Last Recorded V/S: Last Vital Signs Temp 97.9 F 03/22/19 12:37 Pulse 90 03/22/19 12:37 Resp 26 H 03/22/19 12:37 BP 144/64 H 03/22/19 12:37 Pulse Ox 94 L 03/22/19 12:37 - Re-Assessments/Exams Free Text/Narrative Re-Assessment/Exam: 03/22/19 13:02 Patient will be placed on Levaquin 500 mg daily, and another 7 day tapering prednisone course starting at 60 mg daily. He was also given 30 200 mg benzonatate Perles for cough suppression. He needs to recheck with his primary provider next week to discuss pulmonary rehabilitation or a pulmonology consultation. Departure - Departure Time of Disposition: 13:13 Disposition: Home, Self-Care 01 Clinical Impression: Acute exacerbation of chronic obstructive pulmonary disease (COPD) - Discharge Information Instructions: Chronic Obstructive Pulmonary Disease, [id number] Referrals: Sebastian Hall MD [Primary Care Provider] - Forms: ED Department Discharge Care Plan Goals: Take antibiotics as prescribed, prednisone as prescribed, and use cough suppression as needed. Strongly consider rechecking next week with your primary provider to discuss pulmonary consultation or pulmonary rehabilitation. Return if worsening despite treatment.
== END 2019-03-22 13:13 | disposition home or self-care (01) ==
LOC: JP.ED 12:06
DX: J44.1 Chronic obstructive pulmonary disease with (acute) exacerbation (principal); I10 Essential (primary) hypertension; E78.00 Pure hypercholesterolemia, unspecified; I25.10 Atherosclerotic heart disease of native coronary artery without angina pectoris; I25.2 Old myocardial infarction; K21.9 Gastro-esophageal reflux disease without esophagitis; F41.9 Anxiety disorder, unspecified; Z79.899 Other long term (current) drug therapy; Z88.8 Allergy status to other drugs, medicaments and biological substances; Z79.82 Long term (current) use of aspirin
CPT/HCPCS: 99283; 99284

== ENCOUNTER 2019-08-11 12:39 | Emergency (ER) | payer MEDICARE ==
[2019-08-11 12:46] VITALS: BP 170/76; PULSE 98
[2019-08-11] MEDS ORDERED: Albuterol/Ipratropium 3.0-0.5 MG/3 ML Neb Soln NEB ONE (13:02)
[2019-08-11] MEDS ORDERED: predniSONE 20 MG Tab PO ONE (13:03)
--- NOTE | 2019-08-11 13:14 | EDM.PDOC ---
ED HPI GENERAL MEDICAL PROBLEM - General Chief Complaint: Respiratory Problem Stated Complaint: SOB Time Seen by Provider: 08/11/19 12:40 Source of Information: Reports: Patient History Limitations: Reports: No Limitations - History of Present Illness INITIAL COMMENTS - FREE TEXT/NARRATIVE: Barak is a 78 year old male, hx of CHF/COPD/PE on Plavix, presents to the ED today with c/o increasing sob, sputum production, and low grade fever for the last week. Patient using nebs at home with really no relief in his symptoms. Patient on oxygen at bedtime only, no longer smokes. Denies any increase in lower extremity edema or weight gain. Patient denies any vomiting/diarrhea or current chest pain. Patient has not been on steroids for a few weeks per his . Patient is not currently on antibiotics. Patient reports increased sob with activity and lying down, had to sleep in chair last night. Onset: Gradual Duration: Week(s): (1) - Related Data Allergies Allergy/AdvReac Type Severity Reaction Status Date / Time simvastatin Allergy Cannot Verified 03/22/19 12:33 Remember Home Meds: Home Meds Albuterol Sulfate [Proair Respiclick] 1 puff IH BID PRN 05/15/17 [History] Albuterol/Ipratropium [DuoNeb 3.0-0.5 MG/3 ML] 3 ml IH QID PRN 05/15/17 [History ] Aspirin [[place] Aspirin] 81 mg PO BEDTIME 05/15/17 [History] Budesonide/Formoterol [Symbicort 160-4.5 MCG] 2 puff INH BID 05/15/17 [History] Carvedilol 6.25 mg PO BID 05/15/17 [History] Pantoprazole [ProTONIX] 40 mg PO DAILY 05/15/17 [History] Ranitidine [Zantac] 300 mg PO BEDTIME 05/15/17 [History] Simethicone 80 mg PO BID PRN 05/15/17 [History] Sucralfate 1 gm PO QID 05/15/17 [History] atorvaSTATin [Lipitor] 10 mg PO BEDTIME 05/15/17 [History] Losartan/Hydrochlorothiazide [Losartan-HCTZ 100-25 MG] 1 tab PO DAILY 07/25/17 [ History] oxyCODONE 1 tab PO Q6H PRN 07/25/17 [History] Melatonin/Pyridoxine HCl (B6) [Melatonin Tr 10 mg Tablet] 6 mg PO BEDTIME [History] Furosemide [Lasix] 20 mg PO DAILY 03/08/18 [History] Acetaminophen [Tylenol Arthritis] 650 mg PO TID 04/10/18 [History] Cholecalciferol (Vitamin D3) [Vitamin D] 5,000 unit PO BEDTIME 06/11/18 [History ] Cyanocobalamin (Vitamin B12) [Vitamin B12] 1,000 mcg PO DAILY 06/11/18 [History] hydrOXYzine HCl [hydrOXYzine] 25 mg PO BEDTIME 06/30/18 [History] Past Medical History Cardiovascular History: Reports: Afib, Bypass, CAD, Hypertension, [place], SOB on Exertion, Stents Respiratory History: Reports: COPD, SOB Gastrointestinal History: Reports: Cholelithiasis, GERD, Pancreatitis, PUD Genitourinary History: Reports: Prostate Disorder Musculoskeletal History: Reports: Arthritis Psychiatric History: Reports: Anxiety Oncologic (Cancer) History: Reports: Prostate - Infectious Disease History Infectious Disease History: Reports: Chicken Pox, Measles, Mumps - Past Surgical History Head Surgeries/Procedures: Reports: None Cardiovascular Surgical History: Reports: Coronary Artery Bypass, Coronary Artery Stent, Percutaneous Transluminal Angioplasty, Other (See Below) Other Cardiovascular Surgeries/Procedures: stents in both legs GI Surgical History: Reports: Appendectomy, Cholecystectomy, Colonoscopy, Hernia Repair/Other Male Surgical History: Reports: Prostatectomy Musculoskeletal Surgical History: Reports: Knee Replacement Dermatological Surgical History: Reports: None Social & Family History - Family History Family Medical History: Noncontributory - Tobacco Use Smoking Status *Q: Never Smoker - Caffeine Use Caffeine Use: Reports: Coffee Other Caffeine Use: 1 cup per day ED ROS GENERAL - Review of Systems Review Of Systems: ROS reveals no pertinent complaints other than HPI. ED EXAM, GENERAL - Physical Exam Exam: See Below Exam Limited By: No Limitations General Appearance: Alert, WD/WN, No Apparent Distress Eye Exam: Bilateral Eye: EOMI Ears: Normal External Exam Respiratory/Chest: No Respiratory Distress, Other (Rhonchi bilateral lower lobes with faint expiratory wheezing in upper lobes. ) Cardiovascular: Regular Rate, Rhythm Extremities: Pedal Edema (non pitting, bilateral) Neurological: Alert, Oriented Psychiatric: Normal Affect, Normal Mood Skin Exam: Warm Lymphatic: No Adenopathy Course - Vital Signs Last Recorded V/S: Last Vital Signs Temp 36.9 C 08/11/19 12:50 Pulse 98 08/11/19 12:50 Resp 16 08/11/19 12:50 BP 170/76 H 08/11/19 12:50 Pulse Ox 95 08/11/19 12:50 Barak is a 78 year old male who presents to the ED today with about a one week hx of increased cough, sputum production and sob. Please refer to HPI and focused exam. Patient on arrival here is afebrile, he is not tachypneic or tachycardic. Patient is not hypoxic, lungs with bibasilar rhonchi and upper wheezing on exam. No JVD or significant lower extremity edema and patient has been losing weight, I do not think this if related to a CHF exacerbation but more likely COPD exacerbation. Patient given a Duo Neb here as well as 40 mg of Prednisone. CXR obtained. RLL atelectasis on x-ray, no effusion or infiltrate. Symptoms consistent with COPD exacerbation, will start patient on Prednisone burst and Omnicef. Patient instructed to continue nebs at home as needed. Given his reassuring vital signs and overall no increased work of breathing here I feel is stable to go home which patient is agreeable to, certainly low threshold for his return if symptoms worsen or other concerns arise which patient is agreeable to. Patient discharged in stable condition with his . - Orders/Labs/Meds Orders: Active Orders 24 hr Category Date Time Status RT Aerosol Therapy [RC] ASDIRECTED Care 08/11/19 13:02 Active Meds: Medications Discontinued Medications Generic Name Dose Route Start Last Admin Trade Name Iain PRN Reason Stop Dose Admin Albuterol/Ipratropium 3 ml 08/11/19 13:02 08/11/19 13:23 Duoneb 3.0-0.5 Mg/3 Ml NEB 08/11/19 13:03 3 ml ONETIME ONE Administration Prednisone 40 mg 08/11/19 13:03 08/11/19 13:22 Prednisone PO 08/11/19 13:04 40 mg ONETIME ONE Administration Departure - Departure Time of Disposition: 14:15 Disposition: Home, Self-Care 01 Condition: Good Clinical Impression: Acute exacerbation of chronic obstructive pulmonary disease (COPD) - Discharge Information Instructions: Chronic Obstructive Pulmonary Disease Exacerbation, [id number] Referrals: Sebastian Hall MD [Primary Care Provider] - Forms: ED Department Discharge Additional Instructions: Start Prednisone tomorrow morning as you had a dose here today. Start Cefdinir (Omnicef), antibiotic today. Use nebulizer as needed. Return here with any worsening or new/concerning symptoms. - My Orders Last 24 Hours: My Active Orders 08/11/19 13:02 RT Aerosol Therapy [RC] ASDIRECTED - Assessment/Plan Last 24 Hours: My Active Orders 08/11/19 13:02 RT Aerosol Therapy [RC] ASDIRECTED
--- NOTE | 2019-08-11 13:41 | CRLCR ---
INDICATION: Cough and fever TECHNIQUE: Chest 2 views. COMPARISON: 07/25/2017 FINDINGS: Cardiovascular and mediastinum: Heart size and vasculature are normal in caliber and appearance. Mediastinum is within normal limits. Sternotomy wires noted. Lungs and pleural spaces: Right lower lobe atelectasis. No sign of infiltrate or mass. No sign of pleural effusion. No pneumothorax. Bones and soft tissues: No significant findings. IMPRESSION: Unremarkable chest. No evidence for pneumonia. Dictated by Gerber Smith MD @ 08/11/2019 1:40:37 PM Dictated by: Gerber Smith MD @ 08/11/2019 13:40:44 (Electronically Signed)
== END 2019-08-11 14:04 | disposition home or self-care (01) ==
LOC: JP.ED 12:39
DX: J44.1 Chronic obstructive pulmonary disease with (acute) exacerbation (principal); I11.0 Hypertensive heart disease with heart failure; I50.9 Heart failure, unspecified; F41.9 Anxiety disorder, unspecified; Z79.899 Other long term (current) drug therapy; Z79.82 Long term (current) use of aspirin; Z79.01 Long term (current) use of anticoagulants; Z86.711 Personal history of pulmonary embolism; Z88.8 Allergy status to other drugs, medicaments and biological substances
CPT/HCPCS: 71046; 94640; 99283; 99285; A9270; J7620-GY

== ENCOUNTER 2020-03-31 16:22 | Emergency (ER) | payer MEDICARE ==
[2020-03-31 17:16] VITALS: BP 134/58; PULSE 98
--- NOTE | 2020-03-31 17:47 | EDM.PDOC ---
ED HPI GENERAL MEDICAL PROBLEM - General Chief Complaint: Upper Extremity Injury/Pain Stated Complaint: RIGHT ELBOW RED,SWOLLEN Time Seen by Provider: 03/31/20 17:35 Source of Information: Reports: Patient History Limitations: Reports: No Limitations - History of Present Illness INITIAL COMMENTS - FREE TEXT/NARRATIVE: 79-year-old male with right elbow pain. Yesterday he was helping move furniture when he bumped his elbow against something sustaining a small skin tear with bleeding. Overnight he had increased pain, and today he has bruising through the elbow down the extensor surface of the forearm to near the wrist as well as swelling of the olecranon bursa and tenderness. No fevers or chills. Onset: Gradual Duration: Hour(s): (Symptoms started gradually over course of several hours after the injury) Location: Reports: Upper Extremity, Right Improves with: Reports: Movement Associated Symptoms: Reports: No Other Symptoms, Other (Chronic COPD, stable shortness of breath) Right Upper Arm Pain Score (Numeric/FACES): 7 - Related Data Allergies Allergy/AdvReac Type Severity Reaction Status Date / Time simvastatin Allergy Cannot Verified 03/31/20 17:16 Remember Home Meds: Home Meds Albuterol Sulfate [Proair Respiclick] 1 puff IH BID PRN 05/15/17 [History] Albuterol/Ipratropium [DuoNeb 3.0-0.5 MG/3 ML] 3 ml IH QID PRN 05/15/17 [History ] Aspirin [[place] Aspirin] 81 mg PO BEDTIME 05/15/17 [History] Budesonide/Formoterol [Symbicort 160-4.5 MCG] 2 puff INH BID 05/15/17 [History] Pantoprazole [ProTONIX] 40 mg PO DAILY 05/15/17 [History] Simethicone 80 mg PO BID PRN 05/15/17 [History] Sucralfate 1 gm PO QID 05/15/17 [History] atorvaSTATin [Lipitor] 10 mg PO BEDTIME 05/15/17 [History] carvediloL [Carvedilol] 6.25 mg PO BID 05/15/17 [History] Losartan/Hydrochlorothiazide [Losartan-HCTZ 100-25 MG] 1 tab PO DAILY 07/25/17 [ History] oxyCODONE 1 tab PO Q6H PRN 07/25/17 [History] Melatonin/Pyridoxine HCl (B6) [Melatonin Tr 10 mg Tablet] 6 mg PO BEDTIME [History] Furosemide [Lasix] 20 mg PO DAILY 03/08/18 [History] Acetaminophen [Tylenol Arthritis] 650 mg PO TID 04/10/18 [History] Cholecalciferol (Vitamin D3) [Vitamin D] 5,000 unit PO BEDTIME 06/11/18 [History ] Cyanocobalamin (Vitamin B12) [Vitamin B12] 1,000 mcg PO DAILY 06/11/18 [History] hydrOXYzine HCL [hydrOXYzine] 25 mg PO BEDTIME 06/30/18 [History] Past Medical History Cardiovascular History: Reports: Afib, Bypass, CAD, Hypertension, [place], SOB on Exertion, Stents Respiratory History: Reports: COPD, SOB Gastrointestinal History: Reports: Cholelithiasis, GERD, Pancreatitis, PUD Genitourinary History: Reports: Prostate Disorder Musculoskeletal History: Reports: Arthritis Psychiatric History: Reports: Anxiety Oncologic (Cancer) History: Reports: Prostate - Infectious Disease History Infectious Disease History: Reports: Chicken Pox, Measles, Mumps - Past Surgical History Head Surgeries/Procedures: Reports: None Cardiovascular Surgical History: Reports: Coronary Artery Bypass, Coronary Artery Stent, Percutaneous Transluminal Angioplasty, Other (See Below) Other Cardiovascular Surgeries/Procedures: stents in both legs GI Surgical History: Reports: Appendectomy, Cholecystectomy, Colonoscopy, Hernia Repair/Other Male Surgical History: Reports: Prostatectomy Musculoskeletal Surgical History: Reports: Knee Replacement Dermatological Surgical History: Reports: None Social & Family History - Family History Family Medical History: Noncontributory - Tobacco Use Smoking Status *Q: Never Smoker - Caffeine Use Caffeine Use: Reports: Coffee Other Caffeine Use: 1 cup per day - Recreational Drug Use Recreational Drug Use: No Review of Systems - Review of Systems Review Of Systems: See Below Constitutional: Denies: Fever Respiratory: Reports: Shortness of Breath Cardiovascular: Denies: Chest Pain Musculoskeletal: Reports: Arm Pain Skin: Reports: Bruising, Erythema Neurological: Denies: Paresthesia ED EXAM, GENERAL - Physical Exam Exam: See Below Exam Limited By: No Limitations General Appearance: Alert, No Apparent Distress Head: Atraumatic Respiratory/Chest: No Respiratory Distress Extremities: Other (Right arm shows inflammation and redness of the olecranon bursa on the right side, erythema that extends about 5 cm down the forearm and then continues with bruising and ecchymosis to the wrist. There is slight warmth to palpation versus the left. A bandage covers a small puncture wound.) Course - Vital Signs Last Recorded V/S: Last Vital Signs Temp 99.0 F 03/31/20 17:18 Pulse 98 03/31/20 17:18 Resp 16 03/31/20 17:18 BP 134/58 L 03/31/20 17:18 Pulse Ox 93 L 03/31/20 17:18 - Re-Assessments/Exams Free Text/Narrative Re-Assessment/Exam: 03/31/20 17:45 Patient will be started on cephalexin 500 mg 3 times a day, and given 10 hydrocodone for breakthrough pain. Recheck in 2 to 3 days if not improving satisfactorily, otherwise take antibiotic till gone. Departure - Departure Time of Disposition: 18:17 Disposition: Home, Self-Care 01 Clinical Impression: Cellulitis of right elbow Olecranon bursitis Qualifiers: Laterality: right Qualified Code(s): M70.21 - Olecranon bursitis, right elbow - Discharge Information Instructions: Bursitis, [id number] Referrals: Sebastian Hall MD [Primary Care Provider] - Forms: ED Department Discharge Care Plan Goals: Take antibiotic 3 times a day until gone, mild warmth like a heating pad or moist warm compresses may be helpful. Increase activity as tolerated, and recheck in 2 to 3 days if not improving satisfactorily. Sepsis Event Note - Evaluation Sepsis Screening Result: No Definite Risk - Focused Exam Date Exam was Performed: 04/01/20 Time Exam was Performed: 07:06
== END 2020-03-31 18:17 | disposition home or self-care (01) ==
LOC: JP.ED 16:22
DX: L03.113 Cellulitis of right upper limb (principal); M70.21 Olecranon bursitis, right elbow; I48.91 Unspecified atrial fibrillation; I25.10 Atherosclerotic heart disease of native coronary artery without angina pectoris; I10 Essential (primary) hypertension; I25.2 Old myocardial infarction; J44.9 Chronic obstructive pulmonary disease, unspecified; K21.9 Gastro-esophageal reflux disease without esophagitis; M19.90 Unspecified osteoarthritis, unspecified site; F41.9 Anxiety disorder, unspecified; Z88.8 Allergy status to other drugs, medicaments and biological substances; Z95.5 Presence of coronary angioplasty implant and graft
CPT/HCPCS: 99283